=== PATIENT | male | born 1965 | race Caucasian/White ===

== ENCOUNTER 2018-06-01 16:55 | Emergency (ER) | payer OTHER ==
[2018-06-01 17:34] LABS: Hematocrit 52.1 % (39.6-49.0); MCH 30.1 pg (27.0-35.0); MCV 90.4 fL (80-100); MPV 9.2 fL (7.6-11.3); RBC Red Blood Cell Count 5.76 M/uL (4.33-5.43)
[2018-06-01] MEDS ORDERED: INSULIN -REGULAR HUMAN 50 UNIT/0.5 ML ML ONE (17:34)
[2018-06-01] MEDS ORDERED: HALOPERIDOL LACT 5 MG/ML INJ ONE (17:34)
[2018-06-01] MEDS ORDERED: DIPHENHYDRAMINE 50 MG/ML VIAL ONE (17:34)
[2018-06-01 17:35] LABS: Absolute Lymphocytes (CBC) 1.6 K/uL (0.7-4.9); Absolute Monocytes 0.5 K/uL (0.1-1.3); Absolute Neutrophil 6.4 K/uL (1.8-8.0); Basophils % 0.8 % (0-1.3); Eosinophils % 1.1 % (0-4.4); Lymphocytes % 18.8 % (15.3-44.8); Monocytes % 6.1 % (3.3-12.3)
[2018-06-01 17:56] LABS: Albumin 3.4 g/dL (3.4-5.0); Bilirubin Total 0.9 mg/dL (0.2-1.0); Potassium 4.4 mmol/L (3.5-5.1)
--- NOTE | 2018-06-01 18:53 | RAD REPORT ---
EXAM DESCRIPTION: CT - Abdomen Pelvis W Contrast - 06/01/2018 6:44 pm CLINICAL HISTORY: Abdominal pain, nausea and vomiting COMPARISON: April 2017 TECHNIQUE: Biphasic, helical CT imaging of the abdomen and pelvis was performed following 100 ml non -ionic IV contrast. Oral contrast was given. All CT scans are performed using dose optimization technique as appropriate and may include automated exposure control or mA/KV adjustment according to patient size. FINDINGS: Scarring and/ or atelectasis changes present at each lung base. No pericardial thickening or effusion. The liver, spleen, and pancreas show no suspicious findings. Gallstones can be occult. No acute gallb ladder finding seen. No biliary tree dilatation. Symmetric renal function is seen with no hydronephrosis or suspicious renal mass. No pyelonephritis o r acute renal parenchymal process. Patient has numerous nonobstructing caliceal calculi. These are si milar to comparison. No bladder calculus. Prostate gland and seminal vesicles show no acute findings. Fluid-filled stomach is present. No gastric wall thickening or mass. A few prominent but nondilated s mall bowel loops are present. Appendix is normal. No acute colon process seen. There is moderate stoo l volume distending the rectum and a mild to moderate stool volume elsewhere. No free air, free fluid or inflammatory stranding. No mass or bulky lymphadenopathy. Patient has a large 9 centimeter diameter ventral hernia. This has a 4 centimeter neck. Hernia contains only fat. No congestion or edema. The hernia is similar to comparison. No adrenal abnormality. Disc and bony degenerative changes are present. IMPRESSION: No obstruction, free air or surgically emergent finding. No significant bowel finding seen. Gastroenteritis is still possible. Large 9 centimeter umbilical ventral hernia containing only fat. This is similar to the comparison.
--- NOTE | 2018-06-01 18:57 | EDPHYS ---
Physician Documentation [facility] Name: Jordan Flaherty Age: 53 yrs Sex: Male : 1965 Arrival Date: 06/01/2018 Time: 16:58 Bed 5 Private MD: Alex Shipley E ED Physician Dereck Meza HPI: 06/01 17:18 This 53 yrs old Male presents to ER via Ambulatory with complaints of ps1 Vomiting, Weakness. 17:18 Patient with chronic abdominal pain, vomiting, and fatigue secondary to diabetic ps1 gastroparesis. Pt has been seen multiple times for the same and was a patient of Dr. Mascorro and is now seen by Dr. Maynard in [place]. Patient has been treated with PO phenergan and now states that the medication is not working. He took his BS today and it was >400 although patient is on SSI protocol. Pain is localized epigastric. Rated as moderate to severe. No remitting factors. . Historical: - Allergies: 17:05 No Known Allergies; hj - Home Meds: 17:05 amitriptyline 75 mg Oral tab 1 tab nightly [Active]; aspirin 325 mg Oral tab 1 tab once hj daily [Active]; atenolol 25 mg Oral tab 1 tab once daily [Active]; glyburide 2.5 mg Oral tab 2 tabs twice a day [Active]; lisinopril 2.5 mg Oral tab 1 tab once daily [Active]; Novolin 70/30 [place] Sub-Q 35 unit twice a day [Active]; pravastatin 20 mg Oral tab 1 tab once daily [Active]; Protonix Oral [Active]; topiramate 50 mg Oral tab as needed [Active]; Xanax 0.5 mg Oral tab 1 tab daily [Active]; - PMHx: 17:05 Diabetes - IDDM; Gastroparesis; Hyperlipidemia; Hypertension; TIA; hj - PSHx: 17:05 neck surgery; knee sx; hj - Immunization history:: Adult Immunizations up to date. - Social history:: Smoking status: Patient/guardian denies using tobacco, Patient/guardian denies using alcohol. - Ebola Screening: : Patient negative for fever greater than or equal to 101.5 degrees Fahrenheit, and additional compatible Ebola Virus Disease symptoms Patient denies exposure to infectious person Patient denies travel to an Ebola-affected area in the 21 days before illness onset. ROS: 17:18 Constitutional: Negative for fever, chills, and weight loss, Eyes: Negative for injury, ps1 pain, redness, and discharge, Cardiovascular: Negative for chest pain, palpitations, and edema, Respiratory: Negative for shortness of breath, cough, wheezing, and pleuritic chest pain, MS/Extremity: Negative for injury and deformity, Skin: Negative for injury, rash, and discoloration, Psych: Negative for depression, anxiety, suicide ideation, homicidal ideation, and hallucinations. 17:18 Abdomen/GI: Positive for abdominal pain, nausea and vomiting. 17:18 Neuro: Positive for numbness, tingling, lower extremities. Exam: 17:18 Constitutional: This is a well developed, well nourished patient who is awake, alert, ps1 and in no acute distress. Head/Face: Normocephalic, atraumatic. Eyes: Pupils equal round and reactive to light, extra-ocular motions intact. Lids and lashes normal. Conjunctiva and sclera are non-icteric and not injected. Cardiovascular: Regular rate and rhythm. No gallops, murmurs, or rubs. Normal PMI, no JVD. No pulse deficits. Respiratory: Lungs have equal breath sounds bilaterally, clear to auscultation and percussion. No rales, rhonchi or wheezes noted. No increased work of breathing, no retractions or nasal flaring. Abdomen/GI: Soft, non-tender, with normal bowel sounds. No distension or tympany. No guarding or rebound. No evidence of tenderness throughout. Skin: Warm, dry with normal turgor. Normal color with no rashes, no lesions, and no evidence of cellulitis. MS/ Extremity: Pulses equal, no cyanosis. Neurovascular intact. Full, normal range of motion. Vital Signs: 17:06 BP 156 / 100; Pulse 97; Resp 18; Temp 98.2(O); Pulse Ox 97% on R/A; Weight 99.79 kg; hj Height 6 ft. 0 in. (182.88 cm); Pain 10/10; 18:51 BP 139 / 88; Pulse 89; Resp 15; Pulse Ox 95% on R/A; la1 19:01 BP 139 / 88; Pulse 90; Resp 14; Pulse Ox 99% ; bp 17:06 Body Mass Index 29.84 (99.79 kg, 182.88 cm) hj MDM: 17:22 Patient medically screened. ps1 18:57 Data reviewed: vital signs, nurses notes, lab test result(s), radiologic studies, CT ps1 scan, and as a result, I will discharge patient. Counseling: I had a detailed discussion with the patient and/or guardian regarding: the historical points, exam findings, and any diagnostic results supporting the discharge/admit diagnosis, the need for outpatient follow up, a shellacker, to return to the emergency department if symptoms worsen or persist or if there are any questions or concerns that arise at home. Special discussion: Based on the patient's Hx, exam, and Dx evaluation, there is no indication for emergent surgery or inpatient Tx. It is understood by the patient/guardian that if the Sx's persist or worsen they need to return immediately for re-evaluation. 06/01 17:18 Order name: CBC with Diff; Complete Time: 17:43 ps1 06/01 17:18 Order name: CMP; Complete Time: 17:59 ps1 06/01 17:18 Order name: Magnesium; Complete Time: 17:59 ps1 06/01 17:18 Order name: Lipase; Complete Time: 17:59 ps1 06/01 18:28 Order name: CT Abd/Pelvis - W/Contrast ps1 06/01 17:18 Order name: EKG - Nurse/Tech; Complete Time: 17:33 ps1 06/01 18:08 Order name: EKG Electrocardiogram; Complete Time: 18:47 EDMS 06/01 18:13 Order name: EKG; Complete Time: 18:14 ss EC:07 Rate is 92 beats/min. Rhythm is regular. QRS [place] is Normal. [place] interval is normal. QRS ps1 interval is normal. QT interval is normal. Q waves are Old. T waves are Normal. No ST changes noted. Clinical impression: NSR w/ Non-specific ST/T Changes and No change from prior ECG. Interpreted by me. Administered Medications: 17:44 Drug: HALdol 5 mg Route: IVP; Site: right antecubital; la1 18:32 Follow up: Response: No adverse reaction la1 17:44 Drug: Benadryl 25 mg Route: IVP; Site: right antecubital; la1 18:33 Follow up: Response: No adverse reaction la1 17:44 Drug: Insulin Regular Human 10 units {Co-Signature: brennen (Lydia Ferrara RN).} Route: la1 Sub-Q; Site: right upper arm; Point of Care Testing: Blood Glucose: 17:32 Blood Glucose: 391 mg/dL; la1 19:01 Blood Glucose: 311 mg/dL; cb2 Ranges: Critical Glucose Levels:Adult <50 mg/dl or >400 mg/dl <40 mg/dl or >180 mg/dl Disposition: 06/01/18 18:56 Discharged to Home. Impression: Generalized abdominal pain, Hyperglycemia, Elevated Lipase, Diabetic Gastroparesis. - Condition is Stable. - Discharge Instructions: Abdominal Pain, Adult. - Prescriptions for Benadryl 25 mg Oral Capsule - take 1 capsule by ORAL route every 6 hours As needed; 30 tablet. Bentyl 10 mg Oral Capsule - take 1 capsule by ORAL route every 6 hours As needed; 40 capsule. Zofran 4 mg Oral Tablet - take 1 tablet by ORAL route every 12 hours As needed; 20 tablet. - Medication Reconciliation Form, Thank You Letter, Antibiotic Education, Prescription Opioid Use form. - Follow up: Alex Shipley MD; When: As needed; Reason: Re-evaluation by your physician. Follow up: Private Physician; When: As needed; Reason: Worsening of condition. - Problem is chronic. - Symptoms have improved. Signatures: Dispatcher [employer] EDMS Vishal Sarabia RN RN la1 William Thomas RN RN hj Peltier, Brian, RN RN bp Singer, Phillip, MD MD ps1 Lydia hutton Corrections: (The following items were deleted from the chart) 19:09 18:56 06/01/2018 18:56 Discharged to Home. Impression: Generalized abdominal pain; bp Hyperglycemia; Elevated Lipase; Diabetic Gastroparesis. Condition is Stable. Forms are Medication Reconciliation Form, Thank You Letter, Antibiotic Education, Prescription Opioid Use. Follow up: Alex Shipley; When: As needed; Reason: Re-evaluation by your physician. Follow up: Private Physician; When: As needed; Reason: Worsening of condition. Problem is chronic. Symptoms have improved. ps1
--- NOTE | 2018-06-01 18:57 | ER ---
Nurse's Notes [facility] Name: Jordan Flaherty Age: 53 yrs Sex: Male : 1965 Arrival Date: 06/01/2018 Time: 16:58 Bed 5 Private MD: Alex Shipley E Diagnosis: Generalized abdominal pain;Hyperglycemia;Elevated Lipase;Diabetic Gastroparesis Presentation: 06/01 17:02 Presenting complaint: Patient states: i keep throwing up for weeks now, i couldn't keep hj any food or drinks down; my stomach hurts, it feels like its pulling apart; denies diarrhea; denies fever and chills;. Transition of care: patient was not received from another setting of care. Onset of symptoms was June 01, 2018. Risk Assessment: Do you want to hurt yourself or someone else? Patient reports no desire to harm self or others. Initial Sepsis Screen: Does the patient meet any 2 criteria? No. Patient's initial sepsis screen is negative. Does the patient have a suspected source of infection? No. Patient's initial sepsis screen is negative. Care prior to arrival: None. 17:02 Method Of Arrival: Ambulatory 17:02 Acuity: MALACHI 3 hj Triage Assessment: 17:05 General: Appears in no apparent distress. uncomfortable, obese, Behavior is calm, hj cooperative, appropriate for age. Pain: Complains of pain in abdomen. GI: Reports lower abdominal pain, upper abdominal pain, cramping, nausea, vomiting. Historical: - Allergies: 17:05 No Known Allergies; hj - Home Meds: 17:05 amitriptyline 75 mg Oral tab 1 tab nightly [Active]; aspirin 325 mg Oral tab 1 tab once hj daily [Active]; atenolol 25 mg Oral tab 1 tab once daily [Active]; glyburide 2.5 mg Oral tab 2 tabs twice a day [Active]; lisinopril 2.5 mg Oral tab 1 tab once daily [Active]; Novolin 70/30 [place] Sub-Q 35 unit twice a day [Active]; pravastatin 20 mg Oral tab 1 tab once daily [Active]; Protonix Oral [Active]; topiramate 50 mg Oral tab as needed [Active]; Xanax 0.5 mg Oral tab 1 tab daily [Active]; - PMHx: 17:05 Diabetes - IDDM; Gastroparesis; Hyperlipidemia; Hypertension; TIA; hj - PSHx: 17:05 neck surgery; knee sx; hj - Immunization history:: Adult Immunizations up to date. - Social history:: Smoking status: Patient/guardian denies using tobacco, Patient/guardian denies using alcohol. - Ebola Screening: : Patient negative for fever greater than or equal to 101.5 degrees Fahrenheit, and additional compatible Ebola Virus Disease symptoms Patient denies exposure to infectious person Patient denies travel to an Ebola-affected area in the 21 days before illness onset. Screenin:05 Abuse screen: Denies threats or abuse. Denies injuries from another. Nutritional hj screening: No deficits noted. Tuberculosis screening: No symptoms or risk factors identified. Fall Risk None identified. Assessment: 17:06 GI: Abdomen is non-distended. hj 17:32 General: Appears uncomfortable, Behavior is cooperative. Pain: Complains of pain in la1 left upper quadrant and left lower quadrant Pain currently is 9 out of 10 on a pain scale. Neuro: Level of Consciousness is awake, alert, obeys commands, Oriented to person, place, time, situation. Cardiovascular: Capillary refill < 3 seconds Patient's skin is warm and dry. Respiratory: Airway is patent Respiratory effort is even, unlabored, Respiratory pattern is regular, symmetrical. GI: Abdomen is round non-distended, obese, Bowel sounds present X 4 quads. Abd is soft X 4 quads Abdomen is tender to palpation in left upper quadrant and left lower quadrant. : No signs and/or symptoms were reported regarding the genitourinary system. Musculoskeletal: Circulation, motion, and sensation intact. Range of motion: intact in all extremities. 18:23 Reassessment: Patient appears in no apparent distress at this time. No changes from la1 previously documented assessment. Patient and/or family updated on plan of care and expected duration. Pain level reassessed. 19:00 Reassessment: RECD REPORT FROM VISHAL MORENO. 53YO WM PRESENTED WITH N/V AND UNCONTROLLED DM. bp PT HAS H/O MED NON-COMPLIANCE FOR DM. D/C IN PROCESS. PT TO F/U WITH GI. 19:07 Reassessment: PT D/C HOME AMBULATORY WITH FAMILY, DX WITH GEN ABDOMINAL PAIN. bp Vital Signs: 17:06 BP 156 / 100; Pulse 97; Resp 18; Temp 98.2(O); Pulse Ox 97% on R/A; Weight 99.79 kg; hj Height 6 ft. 0 in. (182.88 cm); Pain 10/10; 18:51 BP 139 / 88; Pulse 89; Resp 15; Pulse Ox 95% on R/A; la1 19:01 BP 139 / 88; Pulse 90; Resp 14; Pulse Ox 99% ; bp 17:06 Body Mass Index 29.84 (99.79 kg, 182.88 cm) ED Course: 16:58 Patient arrived in ED. sb2 16:58 Alex Shipley MD is Private Physician. sb2 17:04 Triage completed. hj 17:04 Dereck Meza MD is Attending Physician. ps1 17:06 Arm band placed on right wrist. hj 17:06 Patient has correct armband on for positive identification. Placed in gown. Bed in low hj position. Call light in reach. Side rails up X 1. Adult w/ patient. 17:33 Inserted saline lock: 20 gauge in left antecubital area, using aseptic technique. Blood la1 collected. 17:38 EKG done, by pharmacy picking tech. reviewed by Dereck Meza MD. sm3 17:43 Vishal Sarabia, TIFFANIE is Primary Nurse. la1 18:[address] nj 18:43 CT completed. Patient tolerated procedure well. Patient moved back from CT. nj 18:45 CT Abd/Pelvis - W/Contrast In Process Unspecified. EDMS 18:56 Alex Shipley MD is Referral Physician. ps1 Administered Medications: 17:44 Drug: HALdol 5 mg Route: IVP; Site: right antecubital; la1 18:32 Follow up: Response: No adverse reaction la1 17:44 Drug: Benadryl 25 mg Route: IVP; Site: right antecubital; la1 18:33 Follow up: Response: No adverse reaction la1 17:44 Drug: Insulin Regular Human 10 units {Co-Signature: brennen (Lydia Ferrara RN).} Route: la1 Sub-Q; Site: right upper arm; Point of Care Testing: Blood Glucose: 17:32 Blood Glucose: 391 mg/dL; la1 19:01 Blood Glucose: 311 mg/dL; cb2 Ranges: Outcome: 18:56 Discharge ordered by . ps1 19:09 Patient left the ED. bp Signatures: Dispatcher [employer] EDMS Vishal Sarabia RN RN la1 William Thomas RN Jeff Epps Christian cb2 Peltier, Brian, RN RN bp Dereck Meza MD MD ps1 Savanna Sanchez sb2 Lexis Bautista sm3 Lydia hutton
[2018-06-01 20:30] VITALS: TEMP 98.2
[2018-06-01 20:31] VITALS: BP 139/88
[2018-06-01 20:32] VITALS: O2SAT 99
--- NOTE | 2018-06-02 07:51 | EKG ---
Test Date: 2018-06-01 Test Time: 17:33:15 Batch Analyst: CRISTAL MEASUREMENT RESULTS: Intervals: Rate: 86 VT: 176 QRSD: 104 QT: 380 QTc: 454 [place]: P: 43 VT: 176 QRS: 136 T: -14 INTERPRETIVE STATEMENTS: Normal sinus rhythm Right axis deviation Anterolateral infarct, age undetermined T wave abnormality, consider inferior ischemia Abnormal ECG Compared to ECG 10/16/2017 13:37:50 Right axis deviation now present T-wave abnormality now present Possible ischemia now present Myocardial infarct finding still present consider limb lead placement error Electronically Signed On 06-02-18 07:50:28 CDT by Willie Longoria
--- NOTE | 2018-06-02 10:18 | EKG ---
Test Date: 2018-06-01 Test Time: 18:07:06 Slip Sheeter: VEE MEASUREMENT RESULTS: Intervals: Rate: 92 AR: 174 QRSD: 100 QT: 384 QTc: 474 [place]: P: 69 AR: 174 QRS: 112 T: 41 INTERPRETIVE STATEMENTS: Normal sinus rhythm Indeterminate axis Anterior infarct, age undetermined Abnormal ECG Compared to ECG 06/01/2018 17:33:15 Indeterminate axis now present Right-axis deviation no longer present T-wave abnormality no longer present Possible ischemia no longer present Myocardial infarct finding still present previous ECG had limb lead placement error Electronically Signed On 06-02-18 10:17:52 CDT by Willie Longoria
== END 2018-06-01 19:09 | disposition home or self-care (01) ==
LOC: ER 16:55
DX: E11.65 Type 2 diabetes mellitus with hyperglycemia (principal); E11.43 Type 2 diabetes mellitus with diabetic autonomic (poly)neuropathy; K31.84 Gastroparesis; R74.8 Abnormal levels of other serum enzymes; I10 Essential (primary) hypertension; E78.5 Hyperlipidemia, unspecified; Z79.4 Long term (current) use of insulin; Z79.82 Long term (current) use of aspirin
CPT/HCPCS: 36415; 74177; 80053; 82962 ×2; 83690; 83735; 85025; 93005 ×2; 96372; 96374; 96375; 99284; J1630

== ENCOUNTER 2018-06-29 21:58 | Emergency (ER) | payer OTHER ==
[2018-06-29] MEDS ORDERED: METOCLOPRAMIDE 10 MG/2mL INJ ONE (22:40)
[2018-06-29] MEDS ORDERED: KETOROLAC 30 MG/ML INJ ONE (22:40)
[2018-06-29] MEDS ORDERED: PANTOPRAZOLE 40 MG INJ ONE (22:41)
[2018-06-29] MEDS ORDERED: NA CHLORIDE 0.9% 1,000 ML ONE (22:41)
[2018-06-29 22:44] LABS: Absolute Lymphocytes (CBC) 3.1 K/uL (0.7-4.9); Absolute Monocytes 0.6 K/uL (0.1-1.3); Absolute Neutrophil 4.9 K/uL (1.8-8.0); Basophils % 1.3 % (0-1.3); Eosinophils % 1.1 % (0-4.4); Hematocrit 49.8 % (39.6-49.0); Lymphocytes % 34.8 % (15.3-44.8); MCH 30.5 pg (27.0-35.0); MCV 87.7 fL (80-100); MPV 9.8 fL (7.6-11.3); Monocytes % 6.9 % (3.3-12.3); RBC Red Blood Cell Count 5.67 M/uL (4.33-5.43)
[2018-06-29 22:59] LABS: ALT/SGPT 26 U/L (12-78); AST/SGOT 17 U/L (15-37); Albumin 3.5 g/dL (3.4-5.0); Alkaline Phosphatase 91 U/L (45-117); Amylase Level 44 U/L (25-115); BUN Blood Urea Nitrogen 17 mg/dL (7-18); Bicarbonate 27 mmol/L (21-32); Bilirubin Direct 0.1 mg/dL (0-0.2); Bilirubin Total 0.6 mg/dL (0.2-1.0); Glucose Level 296 mg/dL (74-106); Lipase 167 U/L (73-393); Potassium 4.1 mmol/L (3.5-5.1); Sodium Level 134 mmol/L (136-145)
--- NOTE | 2018-06-29 23:46 | EDPHYS ---
Physician Documentation [facility] Name: Jodran Flaherty Age: 53 yrs Sex: Male : 1965 Arrival Date: 06/29/2018 Time: 22:03 Bed 16 Private MD: ED Physician Alex Haley HPI: 06/29 22:30 This 53 yrs old Male presents to ER via EMS with complaints of High Blood cp Sugar. 22:30 The patient or guardian reports hyperglycemia, that was potentially precipitated by cp forgetting medications. Onset: The symptoms/episode began/occurred today. Associated signs and symptoms: Pertinent positives: nausea, vomiting. Current symptoms: In the emergency department the patient's symptoms are unchanged from the initial presentation. 22:30 Patient presents to ED accompanied by law enforcement who report patient was arrested cp today and was unable to take medications. Historical: - Allergies: 22:08 No Known Allergies; tl2 - Home Meds: 22:08 amitriptyline 75 mg Oral tab 1 tab nightly [Active]; aspirin 325 mg Oral tab 1 tab once tl2 daily [Active]; atenolol 25 mg Oral tab 1 tab once daily [Active]; glyburide 2.5 mg Oral tab 2 tabs twice a day [Active]; lisinopril 2.5 mg Oral tab 1 tab once daily [Active]; Novolin 70/30 [place] Sub-Q 35 unit twice a day [Active]; pravastatin 20 mg Oral tab 1 tab once daily [Active]; Protonix Oral [Active]; topiramate 50 mg Oral tab as needed [Active]; Xanax 0.5 mg Oral tab 1 tab daily [Active]; - PMHx: 22:08 Diabetes - IDDM; Gastroparesis; Hyperlipidemia; Hypertension; TIA; tl2 - Immunization history:: Adult Immunizations up to date. - Social history:: Smoking status: Patient/guardian denies using tobacco. - Ebola Screening: : No symptoms or risks identified at this time. ROS: 22:45 Constitutional: Negative for body aches, chills, fever, poor PO intake. cp 22:45 ENT: Negative for drainage from ear(s), ear pain, sore throat, difficulty swallowing, difficulty handling secretions. 22:45 Cardiovascular: Negative for chest pain, edema, palpitations. 22:45 Respiratory: Negative for cough, shortness of breath, wheezing. 22:45 Abdomen/GI: Positive for nausea, vomiting, Negative for abdominal pain, diarrhea, constipation, anorexia, black/tarry stool, rectal bleeding. 22:45 Back: Positive for pain at rest, pain with movement. 22:45 Skin: Negative for cellulitis, rash. 22:45 Neuro: Negative for altered mental status, headache, weakness. 22:45 All other systems are negative. Exam: 22:52 Constitutional: The patient appears in no acute distress, alert, awake, cp non-diaphoretic, well developed, well nourished. 22:52 Head/Face: Normocephalic, atraumatic. cp 22:52 Eyes: Pupils equal round and reactive to light, extra-ocular motions intact. Lids and lashes normal. Conjunctiva and sclera are non-icteric and not injected. Cornea within normal limits. Periorbital areas with no swelling, redness, or edema. ENT: Nares patent. No nasal discharge, no septal abnormalities noted. Tympanic membranes are normal and external auditory canals are clear. Oropharynx with no redness, swelling, or masses, exudates, or evidence of obstruction, uvula midline. Mucous membranes moist. Chest/axilla: Normal chest wall appearance and motion. Nontender with no deformity. No lesions are appreciated. 22:52 Cardiovascular: Rate: normal, Rhythm: regular, Edema: is not appreciated, JVD: is not appreciated. 22:52 Respiratory: the patient does not display signs of respiratory distress, Respirations: normal, no use of accessory muscles, no retractions, no splinting, no tachypnea, labored breathing, is not present, Breath sounds: are clear throughout, no decreased breath sounds, no stridor, no wheezing. 22:52 Abdomen/GI: Inspection: abdomen appears normal, Bowel sounds: active, all quadrants, Palpation: abdomen is soft and non-tender, in all quadrants, rebound tenderness, is not appreciated, involuntary guarding, is not appreciated. 22:52 Back: pain, that is moderate, ROM is normal, CVA tenderness, is absent. 22:52 Skin: cellulitis, is not appreciated, no rash present. 22:52 Neuro: Orientation: to person, place \T\ time. Mentation: lucid, able to follow commands, Cerebellar function: is grossly normal, Motor: moves all fours, strength is normal, Sensation: no obvious gross deficits. Vital Signs: 22:08 BP 137 / 98; Pulse 99; Resp 20; Temp 98.1(O); Pulse Ox 97% on R/A; Weight 95.25 kg; tl2 Height 6 ft. 0 in. (182.88 cm); Pain 5/10; 23:42 BP 116 / 68; Pulse 88; Resp 18; Pulse Ox 97% on R/A; tl2 22:08 Body Mass Index 28.48 (95.25 kg, 182.88 cm) tl2 MDM: 22:23 Patient medically screened. cp 23:00 Differential diagnosis: diabetes insipidus, DKA, hyperglycemia. cp 23:44 Data reviewed: vital signs, nurses notes, lab test result(s), and as a result, I will cp discharge patient. 23:44 Counseling: I had a detailed discussion with the patient and/or guardian regarding: the cp historical points, exam findings, and any diagnostic results supporting the discharge/admit diagnosis, lab results, to return to the emergency department if symptoms worsen or persist or if there are any questions or concerns that arise at home. Response to treatment: the patient's symptoms have mildly improved after treatment, and as a result, I will discharge patient. ED course: VSS. Nausea and pain improved. Will discharge to home for continued monitoring. 06/29 22:23 Order name: Amylase, Serum; Complete Time: 23:27 cp 06/29 22:23 Order name: Basic Metabolic Panel; Complete Time: 23:27 cp 06/29 23:28 Interpretation: Normal except: NA 134; CL 97; GLUC 296; GFR 69. cp 06/29 22:23 Order name: CBC with Diff; Complete Time: 23:27 cp 06/29 22:23 Order name: Creatinine for Radiology; Complete Time: 23:27 cp 06/29 22:23 Order name: Hepatic Function; Complete Time: 23:27 cp 06/29 22:23 Order name: Lipase; Complete Time: 23:27 cp 06/29 22:23 Order name: IV Saline Lock; Complete Time: 22:26 cp 06/29 22:23 Order name: Ketone, Serum; Complete Time: 23:27 cp 06/29 22:23 Order name: Labs collected and sent; Complete Time: 22:26 cp Administered Medications: 22:44 Drug: NS 0.9% 1000 ml Route: IV; Rate: 1 bolus; Site: right antecubital; tl2 23:59 Follow up: IV Status: Completed infusion; IV Intake: 1000ml tl2 22:45 Drug: TORadol 30 mg Route: IVP; Site: right antecubital; tl2 23:38 Follow up: Response: No adverse reaction; Pain is decreased tl2 22:45 Drug: Reglan 20 mg Route: IVP; Site: right antecubital; tl2 23:38 Follow up: Response: No adverse reaction; Nausea is decreased tl2 22:45 Drug: ProTONIX 40 mg Route: IVP; Site: right antecubital; tl2 23:38 Follow up: Response: No adverse reaction tl2 23:53 Drug: NovoLIN R 7 units {Co-Signature: tl1 (Jacquelyn Apple RN).} Route: Sub-Q; Site: tl2 right upper arm; 06/30 00:00 Follow up: Response: No adverse reaction; Medication administered at discharge. tl2 Disposition: 00:30 Chart complete. cp Disposition: 06/29/18 23:45 Discharged to Home. Impression: Hyperglycemia, unspecified, Nausea, Dizziness and giddiness. - Condition is Stable. - Discharge Instructions: Dizziness, Hyperglycemia, Nausea, Adult, Blood Glucose Monitoring, Adult. - Medication Reconciliation Form, Thank You Letter, Antibiotic Education, Prescription Opioid Use form. - Follow up: Private Physician; When: 1 - 2 days; Reason: Recheck today's complaints. - Problem is an acute exacerbation. - Symptoms have improved. Addendum: 07/01/2018 08:18 Co-signature as Attending Physician, Alex Haley MD I agree with the assessment and w a plan of care. Signatures: Dispatcher [employer] EDMS Mikel Mena PA PA cp Knox, Taylor, RN RN tl2 Alex Haley MD MD oh Jacquelyn Apple RN tl1 Corrections: (The following items were deleted from the chart) 06/29 23:46 23:45 06/29/2018 23:45 Discharged to Home. Impression: Hyperglycemia, unspecified. cp Condition is Stable. Forms are Medication Reconciliation Form, Thank You Letter, Antibiotic Education, Prescription Opioid Use. Follow up: Private Physician; When: 1 - 2 days; Reason: Recheck today's complaints. Problem is an acute exacerbation. Symptoms have improved. cp 06/30 00:00 06/29 22:23 Urine Dipstick-Ancillary ordered. cp tl2 06/30 00:00 06/29 23:46 06/29/2018 23:45 Discharged to Home. Impression: Hyperglycemia, tl2 unspecified; Nausea; Dizziness and giddiness. Condition is Stable. Discharge Instructions: Hyperglycemia, Blood Glucose Monitoring, Adult. Forms are Medication Reconciliation Form, Thank You Letter, Antibiotic Education, Prescription Opioid Use. Follow up: Private Physician; When: 1 - 2 days; Reason: Recheck today's complaints. Problem is an acute exacerbation. Symptoms have improved. cp
--- NOTE | 2018-06-29 23:46 | ER ---
Nurse's Notes [facility] Name: Jordan Flaherty Age: 53 yrs Sex: Male : 1965 Arrival Date: 06/29/2018 Time: 22:03 Bed 16 Private MD: Diagnosis: Hyperglycemia, unspecified;Nausea;Dizziness and giddiness Presentation: 06/29 22:04 Presenting complaint: EMS states: Pt was taken into custody today and missed both of tl2 his insulin doses. Pt c/o being light headed and nauseous. BGL on EMS 276. Transition of care: patient was not received from another setting of care. Onset of symptoms was June 29, 2018 at 21:00. Risk Assessment: Do you want to hurt yourself or someone else? Patient reports no desire to harm self or others. Initial Sepsis Screen: Does the patient meet any 2 criteria? No. Patient's initial sepsis screen is negative. Does the patient have a suspected source of infection? No. Patient's initial sepsis screen is negative. Care prior to arrival: None. 22:04 Method Of Arrival: EMS: [facility] tl2 22:04 Acuity: MALACHI 3 tl2 Triage Assessment: 22:08 General: Appears in no apparent distress. uncomfortable, Behavior is cooperative, tl2 appropriate for age, anxious. Pain: Complains of pain in back. Neuro: Level of Consciousness is awake, alert, obeys commands, Oriented to person, place, time, situation. Neuro: Reports dizziness. Cardiovascular: Denies chest pain. Respiratory: Reports shortness of breath Airway is patent Respiratory effort is even, unlabored, Respiratory pattern is regular, symmetrical. GI: Reports nausea. : No signs and/or symptoms were reported regarding the genitourinary system. Derm: Skin is pink, warm \T\ dry. Historical: - Allergies: 22:08 No Known Allergies; tl2 - Home Meds: 22:08 amitriptyline 75 mg Oral tab 1 tab nightly [Active]; aspirin 325 mg Oral tab 1 tab once tl2 daily [Active]; atenolol 25 mg Oral tab 1 tab once daily [Active]; glyburide 2.5 mg Oral tab 2 tabs twice a day [Active]; lisinopril 2.5 mg Oral tab 1 tab once daily [Active]; Novolin 70/30 [place] Sub-Q 35 unit twice a day [Active]; pravastatin 20 mg Oral tab 1 tab once daily [Active]; Protonix Oral [Active]; topiramate 50 mg Oral tab as needed [Active]; Xanax 0.5 mg Oral tab 1 tab daily [Active]; - PMHx: 22:08 Diabetes - IDDM; Gastroparesis; Hyperlipidemia; Hypertension; TIA; tl2 - Immunization history:: Adult Immunizations up to date. - Social history:: Smoking status: Patient/guardian denies using tobacco. - Ebola Screening: : No symptoms or risks identified at this time. Screenin:09 Abuse screen: Denies threats or abuse. Nutritional screening: No deficits noted. tl2 Tuberculosis screening: No symptoms or risk factors identified. Fall Risk None identified. Assessment: 22:29 General: see triage assessment. tl2 23:42 Reassessment: Patient appears in no apparent distress at this time. Patient and/or tl2 family updated on plan of care and expected duration. Pain level reassessed. Patient is alert, oriented x 3, equal unlabored respirations, skin warm/dry/pink. Patient states feeling better. 23:55 Reassessment: Patient appears in no apparent distress at this time. Patient and/or tl2 family updated on plan of care and expected duration. Pain level reassessed. Patient is alert, oriented x 3, equal unlabored respirations, skin warm/dry/pink. Pt verbalized understanding of discharge instructions, need for follow up and use of insulin for the morning dose Patient states feeling better. Vital Signs: 22:08 BP 137 / 98; Pulse 99; Resp 20; Temp 98.1(O); Pulse Ox 97% on R/A; Weight 95.25 kg; tl2 Height 6 ft. 0 in. (182.88 cm); Pain 5/10; 23:42 BP 116 / 68; Pulse 88; Resp 18; Pulse Ox 97% on R/A; tl2 22:08 Body Mass Index 28.48 (95.25 kg, 182.88 cm) tl2 ED Course: 22:03 Patient arrived in ED. tl2 22:06 Triage completed. tl2 22:08 Arm band placed on right wrist. tl2 22:09 Patient has correct armband on for positive identification. Bed in low position. Call tl2 light in reach. Side rails up X2. Security at bedside. 22:21 Mikel Mena PA is PHCP. cp 22:21 Alex Haley MD is Attending Physician. cp 22:27 Margot Urbina, TIFFANIE is Primary Nurse. tl2 22:29 Inserted saline lock: 20 gauge in right antecubital area, using aseptic technique. tl2 Blood collected. 23:55 No provider procedures requiring assistance completed. IV discontinued, intact, tl2 bleeding controlled, No redness/swelling at site. Pressure dressing applied. Administered Medications: 22:44 Drug: NS 0.9% 1000 ml Route: IV; Rate: 1 bolus; Site: right antecubital; tl2 23:59 Follow up: IV Status: Completed infusion; IV Intake: 1000ml tl2 22:45 Drug: TORadol 30 mg Route: IVP; Site: right antecubital; tl2 23:38 Follow up: Response: No adverse reaction; Pain is decreased tl2 22:45 Drug: Reglan 20 mg Route: IVP; Site: right antecubital; tl2 23:38 Follow up: Response: No adverse reaction; Nausea is decreased tl2 22:45 Drug: ProTONIX 40 mg Route: IVP; Site: right antecubital; tl2 23:38 Follow up: Response: No adverse reaction tl2 23:53 Drug: NovoLIN R 7 units {Co-Signature: tl1 (Jacquelyn Apple RN).} Route: Sub-Q; Site: tl2 right upper arm; 06/30 00:00 Follow up: Response: No adverse reaction; Medication administered at discharge. tl2 Intake: 06/29 23:59 IV: 1000ml; Total: 1000ml. tl2 Outcome: 23:45 Discharge ordered by . cp 23:55 Discharged to Law Enforcement tl2 23:55 Condition: stable 23:55 Discharge instructions given to patient, Instructed on discharge instructions, follow up and referral plans. medication usage. 06/30 00:00 Patient left the ED. tl2 Signatures: Mikel Mena PA PA cp Knox, Taylor, RN RN tl2 Jacquelyn Apple RN tl1
[2018-06-29] MEDS ORDERED: INSULIN -REGULAR HUMAN 50 UNIT/0.5 ML ML ONE (23:55)
[2018-06-30 00:56] VITALS: TEMP 98.1; O2SAT 97
[2018-06-30 00:58] VITALS: BP 116/68
== END 2018-06-30 | disposition home or self-care (01) ==
LOC: ER 21:58
DX: E11.65 Type 2 diabetes mellitus with hyperglycemia (principal); E11.43 Type 2 diabetes mellitus with diabetic autonomic (poly)neuropathy; K31.84 Gastroparesis; Z79.4 Long term (current) use of insulin; E78.5 Hyperlipidemia, unspecified; I10 Essential (primary) hypertension; Z86.73 Personal history of transient ischemic attack (TIA), and cerebral infarction without residual deficits; Z79.82 Long term (current) use of aspirin; R42 Dizziness and giddiness; R11.0 Nausea; T38.3X6A Underdosing of insulin and oral hypoglycemic [antidiabetic] drugs, initial encounter; Z91.138 Patient's unintentional underdosing of medication regimen for other reason
CPT/HCPCS: 36415; 80048; 80076; 82010; 82150; 82962; 83690; 85025; 96361; 96372; 96374; 96375; 99284; C9113; J2765; J7030

== ENCOUNTER 2019-03-16 23:24 | Emergency (ER) | payer OTHER ==
[2019-03-17 01:23] LABS: Absolute Lymphocytes (CBC) 2.9 K/uL (0.7-4.9); Absolute Monocytes 0.6 K/uL (0.1-1.3); Absolute Neutrophil 4.5 K/uL (1.8-8.0); Basophils % 1.3 % (0-1.3); Eosinophils % 2.4 % (0-4.4); Hematocrit 44.4 % (39.6-49.0); Lymphocytes % 35.2 % (15.3-44.8); MPV 9.6 fL (7.6-11.3); Monocytes % 6.8 % (3.3-12.3)
[2019-03-17] MEDS ORDERED: NA CHLORIDE 0.9% 1,000 ML ONE ×2 (01:48→02:41)
[2019-03-17] MEDS ORDERED: ONDANSETRON 4 MG/2 ML VIAL ONE (01:52)
[2019-03-17] MEDS ORDERED: MORPHINE 4 MG/ML SYR ONE (01:52)
[2019-03-17 01:56] LABS: Albumin 2.9 g/dL (3.4-5.0); Bilirubin Direct 0.1 mg/dL (0-0.2); Bilirubin Total 0.5 mg/dL (0.2-1.0); Magnesium 1.8 mg/dL (1.8-2.4); Potassium 3.9 mmol/L (3.5-5.1); Protein, Total 7.1 g/dL (6.4-8.2)
[2019-03-17] MEDS ORDERED: INSULIN -REGULAR HUMAN 50 UNIT/0.5 ML ML ONE (02:28)
[2019-03-17] MEDS ORDERED: KETOROLAC 30 MG/ML INJ ONE (02:29)
--- NOTE | 2019-03-17 04:13 | ER ---
Nurse's Notes [facility] Name: Jordan Flaherty Age: 54 yrs Sex: Male : 1965 Arrival Date: 03/16/2019 Time: 23:26 Bed 18 Private MD: Alex Shipley E Diagnosis: Unspecified abdominal pain;Diabetes mellitus due to underlying condition with hyperglycemia Presentation: 03/16 23:38 Presenting complaint: Patient states: Pain and swelling to left side of abd, happening la1 for the last 2 weeks but much worse today. Transition of care: patient was not received from another setting of care. Onset of symptoms was March 16, 2019. Risk Assessment: Do you want to hurt yourself or someone else? Patient reports no desire to harm self or others. Initial Sepsis Screen: Does the patient meet any 2 criteria? No. Patient's initial sepsis screen is negative. Does the patient have a suspected source of infection? No. Patient's initial sepsis screen is negative. Care prior to arrival: None. 23:38 Method Of Arrival: Ambulatory la1 23:38 Acuity: MALACHI 3 la1 Historical: - Allergies: 23:39 No Known Allergies; la1 - PMHx: 23:39 Diabetes - IDDM; Gastroparesis; Hyperlipidemia; Hypertension; TIA; la1 - Immunization history:: Adult Immunizations. - Social history:: Smoking status: Patient/guardian denies using tobacco. - Ebola Screening: : No symptoms or risks identified at this time. Screenin/26 00:41 Abuse screen: Denies threats or abuse. Nutritional screening: No deficits noted. jd3 Tuberculosis screening: No symptoms or risk factors identified. Fall Risk Ambulatory Aid- None/Bed Rest/Nurse Assist (0 pts). Gait- Normal/Bed Rest/Wheelchair (0 pts) Mental Status- Oriented to own ability (0 pts). Total Enciso Fall Scale indicates No Risk (0-24 pts). Assessment: 00:39 General: Appears in no apparent distress. uncomfortable, Behavior is calm, cooperative, jd3 appropriate for age. Pain: Complains of pain in anterior aspect of left lateral abdomen Pain currently is 8 out of 10 on a pain scale. Quality of pain is described as pressure, sharp. Neuro: Level of Consciousness is awake, alert, obeys commands, Oriented to person, place, time, situation, Appropriate for age. Cardiovascular: Capillary refill < 3 seconds Patient's skin is warm and dry. Respiratory: Airway is patent Respiratory effort is even, unlabored, Respiratory pattern is regular, symmetrical. GI: Abdomen is round swelling noted to left flank of abdomen. Bowel sounds present X 4 quads. Abd is soft and non tender X 4 quads. Reports normal bowel habits, Patient currently denies constipation, diarrhea, nausea, vomiting. : No signs and/or symptoms were reported regarding the genitourinary system. EENT: No signs and/or symptoms were reported regarding the EENT system. Derm: Skin is intact, Skin is dry, Skin is normal, Skin temperature is warm. Musculoskeletal: Circulation, motion, and sensation intact. Range of motion: intact in all extremities. 01:30 Reassessment: Patient appears in no apparent distress at this time. Patient and/or jd3 family updated on plan of care and expected duration. Pain level reassessed. Patient is alert, oriented x 3, equal unlabored respirations, skin warm/dry/pink. 02:03 Reassessment: Patient appears in no apparent distress at this time. Patient and/or jd3 family updated on plan of care and expected duration. Pain level reassessed. Patient is alert, oriented x 3, equal unlabored respirations, skin warm/dry/pink. 03:05 Reassessment: Patient appears in no apparent distress at this time. Patient and/or jd3 family updated on plan of care and expected duration. Pain level reassessed. Patient is alert, oriented x 3, equal unlabored respirations, skin warm/dry/pink. 04:12 Reassessment: Patient appears in no apparent distress at this time. Patient and/or jd3 family updated on plan of care and expected duration. Pain level reassessed. Patient is alert, oriented x 3, equal unlabored respirations, skin warm/dry/pink. Vital Signs: 03/16 23:39 BP 150 / 104; Pulse 102; Resp 16; Temp 98.4; Pulse Ox 100% on R/A; Weight 99.79 kg; la1 Height 6 ft. 0 in. (182.88 cm); Pain 7/10; 03/17 00:51 BP 142 / 91; Pulse 98; Resp 16; Temp 98.2(O); Pulse Ox 98% ; lt1 02:04 BP 122 / 83; Pulse 86; Resp 19 S; Pulse Ox 98% on R/A; jd3 03:05 BP 118 / 75; Pulse 81; Resp 18 S; Pulse Ox 99% on R/A; jd3 04:13 BP 112 / 71; Pulse 88; Resp 17 S; Pulse Ox 99% on R/A; jd3 03/16 23:39 Body Mass Index 29.84 (99.79 kg, 182.88 cm) la1 ED Course: 03/16 23:26 Patient arrived in ED. es 23:26 Alex Shipley MD is Private Physician. es 23:38 Triage completed. la1 23:39 Arm band placed on left wrist. la1 03/17 00:38 Ti Farias RN is Primary Nurse. jd3 00:41 Patient has correct armband on for positive identification. Placed in gown. Bed in low jd3 position. Call light in reach. Side rails up X 1. Adult w/ patient. 00:59 Mikel Mena PA is PHCP. cp 00:59 Bernardino Rose MD is Attending Physician. cp 01:18 Inserted saline lock: 22 gauge in right antecubital area, using aseptic technique. tl2 Blood collected. 01:48 Radiology exam delayed due to lab results not completed at this time. (BUN/Creatinine). az 01:57 Notified Nurse Practitioner and/or Physician Pediatric Sports Medicine Specialist of a critical lab result(s), fc glucose 517. 03:33 CT Abd/Pelvis - W/Contrast: no oral contrast In Process Unspecified. EDMS 04:11 Alex Shipley MD is Referral Physician. cp 04:27 No provider procedures requiring assistance completed. IV discontinued, intact, jd3 bleeding controlled, No redness/swelling at site. Pressure dressing applied. Administered Medications: 01:35 Drug: NS 0.9% 1000 ml Route: IV; Rate: 1 bolus; Site: right antecubital; jd3 04:17 Follow up: Response: No adverse reaction; IV Status: Completed infusion; IV Intake: jd3 1000ml 01:41 Drug: morphine 4 mg Route: IVP; Site: right antecubital; jd3 02:12 Follow up: Response: Pain is unchanged, physician notified jd3 01:41 Drug: Zofran 4 mg Route: IVP; Site: right antecubital; jd3 02:12 Follow up: Response: No adverse reaction jd3 02:19 Drug: Insulin Regular Human 10 units {Co-Signature: tl2 (Margot Urbina RN).} Route: IVP; jd3 Site: right antecubital; 03:15 Follow up: Response: No adverse reaction jd3 02:20 Drug: TORadol 30 mg Route: IVP; Site: right antecubital; jd3 03:20 Follow up: Response: No adverse reaction jd3 02:31 Drug: NS 0.9% 1000 ml Route: IV; Rate: 1 bolus; Site: right antecubital; jd3 04:18 Follow up: Response: No adverse reaction; IV Status: Completed infusion; IV Intake: jd3 1000ml 04:03 Drug: Bentyl 20 mg Route: PO; jd3 04:18 Follow up: Response: No adverse reaction jd3 04:04 Drug: Reglan 10 mg Route: IVP; Site: right antecubital; jd3 04:18 Follow up: Response: No adverse reaction jd3 Point of Care Testing: Blood Glucose: 04:13 Blood Glucose: 302 mg/dL; jd3 Ranges: Intake: 04:17 IV: 1000ml; Total: 1000ml. jd3 04:18 IV: 1000ml; Total: 2000ml. jd3 Outcome: 04:12 Discharge ordered by MD. cp 04:27 Discharged to home ambulatory, with family. jd3 04:27 Condition: stable 04:27 Discharge instructions given to patient, family, Instructed on discharge instructions, follow up and referral plans. medication usage, Demonstrated understanding of instructions, follow-up care, medications, Prescriptions given X 3. 04:29 Patient left the ED. jd3 Signatures: Dispatcher [employer] Phuong Bynum Felicia RN Vishal Shay RN RN la1 Mikel Mena PA PA cp Knox, Taylor, RN RN tl2 Ti Farias RN RN jd3 Rupa Hugo Leah lt1 Margot Urbina RN tl2 Corrections: (The following items were deleted from the chart) 02:05 02:04 BP 115 / 95; Pulse 67bpm; Resp 19bpm; Spontaneous; Pulse Ox 100% RA; jd3 jd3
--- NOTE | 2019-03-17 04:13 | EDPHYS ---
Physician Documentation [facility] [place] Name: Jordan Flaherty Age: 54 yrs Sex: Male : 1965 Arrival Date: 03/16/2019 Time: 23:26 Bed 18 Private MD: Alex Shipley E ED Physician Bernardino Rose HPI: 03/17 01:05 This 54 yrs old Male presents to ER via Ambulatory with complaints of cp Abdominal Pain. 01:05 The patient presents with abdominal pain left flank. Onset: The symptoms/episode cp began/occurred 2 week(s) ago, and became worse today. The symptoms do not radiate. Associated signs and symptoms: Pertinent negatives: nausea and vomiting, blood in stools, chest pain, constipation, diarrhea, dysuria, fever, palpitations, testicular pain. Historical: - Allergies: 03/16 23:39 No Known Allergies; la1 - PMHx: 23:39 Diabetes - IDDM; Gastroparesis; Hyperlipidemia; Hypertension; TIA; la1 - Immunization history:: Adult Immunizations. - Social history:: Smoking status: Patient/guardian denies using tobacco. - Ebola Screening: : No symptoms or risks identified at this time. ROS: 03/17 01:10 Constitutional: Negative for body aches, chills, fever, poor PO intake. cp 01:10 Eyes: Negative for injury, pain, redness, and discharge. cp 01:10 ENT: Negative for drainage from ear(s), ear pain, sore throat, difficulty swallowing, difficulty handling secretions. 01:10 Cardiovascular: Negative for chest pain, edema, palpitations. 01:10 Respiratory: Negative for cough, shortness of breath, wheezing. 01:10 Abdomen/GI: Negative for abdominal pain, nausea, vomiting, and diarrhea, black/tarry stool, rectal bleeding. 01:10 Back: Negative for pain at rest, pain with movement, radiated pain. 01:10 Skin: Negative for rash. 01:10 Neuro: Negative for headache, weakness. 01:10 All other systems are negative. Exam: 01:15 Constitutional: The patient appears in no acute distress, alert, awake, cp non-diaphoretic, non-toxic, well developed, well nourished. 01:15 Head/Face: Normocephalic, atraumatic. cp 01:15 Eyes: Periorbital structures: appear normal, Conjunctiva: normal, no exudate, no injection, Sclera: no appreciated abnormality, Lids and lashes: appear normal, bilaterally. 01:15 ENT: External ear(s): are unremarkable, Nose: is normal, Mouth: Lips: moist, Oral mucosa: moist, Posterior pharynx: is normal, airway is patent, no erythema, no exudate. 01:15 Chest/axilla: Inspection: normal, Palpation: is normal, no crepitus, no tenderness. 01:15 Cardiovascular: Rate: normal, Rhythm: regular. 01:15 Respiratory: the patient does not display signs of respiratory distress, Respirations: normal, no use of accessory muscles, no retractions, no splinting, no tachypnea, labored breathing, is not present, Breath sounds: are clear throughout, no decreased breath sounds, no stridor, no wheezing. 01:15 Back: CVA tenderness, is absent. 01:15 Skin: no rash present. 01:15 Abdomen/GI: Bowel sounds: active, all quadrants, Palpation: soft, in all quadrants, cp moderate abdominal tenderness, in the anterior aspect of left lateral abdomen, rebound tenderness, is not appreciated, involuntary guarding, is not appreciated, Hernia: noted in the umbilical area, incarceration, is not appreciated, tenderness, is not appreciated. Vital Signs: 03/16 23:39 BP 150 / 104; Pulse 102; Resp 16; Temp 98.4; Pulse Ox 100% on R/A; Weight 99.79 kg; la1 Height 6 ft. 0 in. (182.88 cm); Pain 7/10; 03/17 00:51 BP 142 / 91; Pulse 98; Resp 16; Temp 98.2(O); Pulse Ox 98% ; lt1 02:04 BP 122 / 83; Pulse 86; Resp 19 S; Pulse Ox 98% on R/A; jd3 03:05 BP 118 / 75; Pulse 81; Resp 18 S; Pulse Ox 99% on R/A; jd3 04:13 BP 112 / 71; Pulse 88; Resp 17 S; Pulse Ox 99% on R/A; jd3 03/16 23:39 Body Mass Index 29.84 (99.79 kg, 182.88 cm) la1 MDM: 01:03 Patient medically screened. cp 01:30 Differential diagnosis: bowel obstruction, diverticulitis, non-specific abd pain, cp pancreatitis, Ureterolithiasis, urinary tract infection. 04:11 Data reviewed: vital signs, nurses notes, lab test result(s), radiologic studies, CT cp scan. 04:11 Counseling: I had a detailed discussion with the patient and/or guardian regarding: the cp historical points, exam findings, and any diagnostic results supporting the discharge/admit diagnosis, lab results, radiology results, to return to the emergency department if symptoms worsen or persist or if there are any questions or concerns that arise at home. Response to treatment: the patient's symptoms have markedly improved after treatment, and as a result, I will discharge patient. Special discussion: Based on the patient's Hx, exam, and Dx evaluation, there is no indication for emergent surgery or inpatient Tx. It is understood by the patient/guardian that if the Sx's persist or worsen they need to return immediately for re-evaluation. 03/17 01:03 Order name: Basic Metabolic Panel; Complete Time: 02:23 cp 03/17 02:23 Interpretation: Normal except: NA 132; GLUC 517; BUN 19; GFR 72. cp 03/17 01:03 Order name: CBC with Diff; Complete Time: 02:23 cp 03/17 01:03 Order name: Creatinine for Radiology; Complete Time: 02:23 cp 03/17 01:03 Order name: Hepatic Function; Complete Time: 02:23 cp 03/17 01:03 Order name: Lipase; Complete Time: 02:23 cp 03/17 01:03 Order name: Magnesium; Complete Time: 02:23 cp 03/17 01:22 Order name: CT Abd/Pelvis - W/Contrast: no oral contrast cp 03/17 01:03 Order name: IV Saline Lock; Complete Time: 01:18 cp 03/17 01:03 Order name: Labs collected and sent; Complete Time: 01:18 cp 03/17 03:50 Order name: Accucheck Blood Glucose; Complete Time: 04:14 cp Administered Medications: 01:35 Drug: NS 0.9% 1000 ml Route: IV; Rate: 1 bolus; Site: right antecubital; jd3 04:17 Follow up: Response: No adverse reaction; IV Status: Completed infusion; IV Intake: jd3 1000ml 01:41 Drug: morphine 4 mg Route: IVP; Site: right antecubital; jd3 02:12 Follow up: Response: Pain is unchanged, physician notified jd3 01:41 Drug: Zofran 4 mg Route: IVP; Site: right antecubital; jd3 02:12 Follow up: Response: No adverse reaction jd3 02:19 Drug: Insulin Regular Human 10 units {Co-Signature: tl2 (Margot Urbina RN).} Route: IVP; jd3 Site: right antecubital; 03:15 Follow up: Response: No adverse reaction jd3 02:20 Drug: TORadol 30 mg Route: IVP; Site: right antecubital; jd3 03:20 Follow up: Response: No adverse reaction jd3 02:31 Drug: NS 0.9% 1000 ml Route: IV; Rate: 1 bolus; Site: right antecubital; jd3 04:18 Follow up: Response: No adverse reaction; IV Status: Completed infusion; IV Intake: jd3 1000ml 04:03 Drug: Bentyl 20 mg Route: PO; jd3 04:18 Follow up: Response: No adverse reaction jd3 04:04 Drug: Reglan 10 mg Route: IVP; Site: right antecubital; jd3 04:18 Follow up: Response: No adverse reaction jd3 Point of Care Testing: Blood Glucose: 04:13 Blood Glucose: 302 mg/dL; jd3 Ranges: Critical Glucose Levels:Adult <50 mg/dl or >400 mg/dl <40 mg/dl or >180 mg/dl Disposition: 06:30 Co-signature as Attending Physician, Bernardino Rose MD. pkl Disposition: 03/17/19 04:12 Discharged to Home. Impression: Unspecified abdominal pain, Diabetes mellitus due to underlying condition with hyperglycemia. - Condition is Stable. - Discharge Instructions: Abdominal Pain, Adult, Constipation, Adult, Blood Glucose Monitoring, Adult, Diabetes Mellitus and Food. - Prescriptions for Bentyl 20 mg Oral Tablet - take 2 tablet by ORAL route every 6 hours As needed; 40 tablet. Zofran 4 mg Oral Tablet - take 1 tablet by ORAL route every 12 hours As needed; 20 tablet. Miralax 17 gram/dose Oral - take 1 packet by ORAL route once daily As needed dilute powder in 8 ounces of water or juice; 20 packet. - Medication Reconciliation Form, Thank You Letter, Antibiotic Education, Prescription Opioid Use form. - Follow up: Alex Shipley MD; When: 2 - 3 days; Reason: Recheck today's complaints. - Problem is new. - Symptoms have improved. Signatures: Dispatcher [employer] EDMS Bernardino Rose MD MD pkl Attema, Lee RN RN la1 Mikel Mena PA PA cp Ti Farias RN RN jd3 Margot Urbina RN tl2 Corrections: (The following items were deleted from the chart) 04:01 01:15 Abdomen/GI: Inspection: Bowel sounds: active, all quadrants, Palpation: soft, in cp all quadrants, moderate abdominal tenderness, in the anterior aspect of left lateral abdomen, rebound tenderness, is not appreciated, voluntary guarding, is not appreciated, involuntary guarding, is not appreciated, Hernia: noted in the paraumbilical area, incarceration, is not appreciated, tenderness, is not appreciated, cp 04:13 04:12 03/17/2019 04:12 Discharged to Home. Impression: Unspecified abdominal pain. cp Condition is Stable. Forms are Medication Reconciliation Form, Thank You Letter, Antibiotic Education, Prescription Opioid Use. Follow up: Alex Shipley; When: 2 - 3 days; Reason: Recheck today's complaints. Problem is new. Symptoms have improved. cp 04:29 04:13 03/17/2019 04:12 Discharged to Home. Impression: Unspecified abdominal pain; jd3 Diabetes mellitus due to underlying condition with hyperglycemia. Condition is Stable. Discharge Instructions: Abdominal Pain, Adult, Constipation, Adult. Prescriptions for Bentyl 20 mg Oral Tablet - take 2 tablet by ORAL route every 6 hours As needed; 40 tablet, Zofran 4 mg Oral Tablet - take 1 tablet by ORAL route every 12 hours As needed; 20 tablet, Miralax 17 gram/dose Oral - take 1 packet by ORAL route once daily As needed dilute powder in 8 ounces of water or juice; 20 packet. and Forms are Medication Reconciliation Form, Thank You Letter, Antibiotic Education, Prescription Opioid Use. Follow up: Alex Shipley; When: 2 - 3 days; Reason: Recheck today's complaints. Problem is new. Symptoms have improved. cp
[2019-03-17] MEDS ORDERED: METOCLOPRAMIDE 10 MG/2mL INJ ONE (04:14)
[2019-03-17] MEDS ORDERED: DICYCLOMINE HCL 10 MG CAP ONE ×2 (04:14→04:17)
[2019-03-17 04:37] VITALS: TEMP 98.2
[2019-03-17 04:39] VITALS: O2SAT 99
[2019-03-17 04:40] VITALS: BP 112/71
--- NOTE | 2019-03-19 11:06 | RAD REPORT ---
EXAM DESCRIPTION: CT - Abdomen Pelvis W Contrast - 03/17/2019 3:32 am CLINICAL HISTORY: The patient is 54 years old and is Male; ABD PAIN TECHNIQUE: Axial computed tomography images of the abdomen and pelvis with intravenous contrast. S agittal and coronal reformatted images were created and reviewed. This CT exam was performed using one or more of the following dose reduction techniques: automated exposure control, adjustment of t he mA and/or kV according to patient size, and/or use of iterative reconstruction technique. COMPARISON: No relevant prior studies available. FINDINGS: LUNG BASES: Areas of linear atelectasis within the right middle lobe and right lower lob e are present. ABDOMEN: LIVER: The liver is enlarged and mildly fatty. GALLBLADDER AND BILE DUCTS: Distention of the gallbladder is noted. No calcified gallstones are seen. PANCREAS: The pancreas is atrophic. SPLEEN: Unremarkable. ADRENALS: Unremarkable. No mass. KIDNEYS AND URETERS: Punctate bilateral intrarenal calcifications are present. The kidneys enhan ce symmetrically. No obstructing renal or ureteral calculus is seen. STOMACH AND BOWEL: The stomach is distended with food contents. The small bowel is relatively no rmal in caliber. A moderate amount of stool is present throughout the colon. Scattered colonic divert icula are present without surrounding inflammation. There is no bowel obstruction. PELVIS: APPENDIX: The appendix is normal in caliber without surrounding inflammation. BLADDER: The bladder is well distended. REPRODUCTIVE: The prostate is enlarged. ABDOMEN and PELVIS: INTRAPERITONEAL SPACE: Unremarkable. No free air. No significant fluid collection. BONES/JOINTS: Mild multilevel degenerative change of the spine is present. SOFT TISSUES: A moderate-sized fat-containing umbilical hernia is present. VASCULATURE: Extensive atherosclerosis of the vasculature is present. No abdominal aortic aneu rysm. LYMPH NODES: Unremarkable. No enlarged lymph nodes. IMPRESSION: 1. Bilateral nephrolithiasis without obstruction. 2. Normal appendix. 3. Diverticulosis. No bowel obstruction. Electronically signed by: Fay Rider MD 03/17/2019 3:44 AM CDT Due to temporary technical issues with the PACS/Fluency reporting system, reports are being signed by the in house radiologist as a courtesy to ensure prompt reporting. The interpreting radiologist is f ully responsible for the content of the report.
== END 2019-03-17 04:29 | disposition home or self-care (01) ==
LOC: ER 23:24
DX: E11.65 Type 2 diabetes mellitus with hyperglycemia (principal); I10 Essential (primary) hypertension
CPT/HCPCS: 96361; 85025; 80048; 36415; 83735; 82962; 80076; 83690; 74177; 96375; 96374; 99284; Q9967; J2765; J7030 ×2; J2405

== ENCOUNTER 2019-09-27 18:52 | Inpatient (IN) | payer OTHER ==
[2019-09-27] MEDS ORDERED: NA CHLORIDE 0.9% 1,000 ML ONE (19:25)
[2019-09-27] MEDS ORDERED: MORPHINE 4 MG/ML SYR ONE ×2 (19:35→19:52)
[2019-09-27] MEDS ORDERED: ONDANSETRON 4 MG/2 ML VIAL ONE ×2 (19:36→19:52)
[2019-09-27] MEDS ORDERED: VANCOMYCIN 1 GM/VIAL ONE (19:38)
[2019-09-27] MEDS ORDERED: NA CHLORIDE 0.9% 500 ML ONE (19:38)
[2019-09-27] MEDS ORDERED: PIPER/TAZO/NS 3.375gm 3.375 GM/100 ML BAG ONE (19:39)
[2019-09-27 19:49] LABS: Absolute Lymphocytes (CBC) 1.8 K/uL (0.7-4.9); Basophils % 0.6 % (0-1.3); Hematocrit 44.6 % (39.6-49.0); Lymphocytes % 10.7 % (15.3-44.8); MPV 9.6 fL (7.6-11.3); RBC Red Blood Cell Count 5.05 M/uL (4.33-5.43)
[2019-09-27 19:53] LABS: Protime INR 0.96
[2019-09-27] MEDS ORDERED: NA CHLORIDE 0.9% 2,000 ML ONE (20:02)
--- NOTE | 2019-09-27 20:08 | ER ---
Nurse's Notes [facility] Name: Jordan Flaherty Age: 54 yrs Sex: Male : 1965 Arrival Date: 09/27/2019 Time: 18:56 Bed 19 Private MD: Diagnosis: Cutaneous abscess of other sites-right groin;Type 1 diabetes mellitus;Vomiting;Fever, unspecified Presentation: 09/27 19:07 Acuity: MALACHI 3 dm5 19:12 Presenting complaint: Patient states: "i think I have a Staph infection in groin. dm5 Started 2 days". Transition of care: patient was not received from another setting of care. Onset of symptoms was September 25, 2019. Risk Assessment: Do you want to hurt yourself or someone else? Patient reports no desire to harm self or others. Initial Sepsis Screen: Does the patient meet any 2 criteria? RR > 20 per min. HR > 90 bpm. Yes Does the patient have a suspected source of infection? Yes: Skin breakdown/wound If YES to both, name of provider notified: Mikel Padilla MD Care prior to arrival: None. 19:12 Method Of Arrival: Ambulatory dm5 Historical: - Allergies: 19:29 No Known Allergies; jd3 - Home Meds: 19:29 amitriptyline 75 mg Oral tab 1 tab nightly [Active]; aspirin 325 mg Oral tab 1 tab once jd3 daily [Active]; atenolol 25 mg Oral tab 1 tab once daily [Active]; glyburide 2.5 mg Oral tab 2 tabs twice a day [Active]; lisinopril 2.5 mg Oral tab 1 tab once daily [Active]; Novolin 70/30 [place] Sub-Q 35 unit twice a day [Active]; pravastatin 20 mg Oral tab 1 tab once daily [Active]; Protonix Oral [Active]; topiramate 50 mg Oral tab as needed [Active]; Xanax 0.5 mg Oral tab 1 tab daily [Active]; duloxetine oral oral [Active]; - PMHx: 19:29 Diabetes - IDDM; Hyperlipidemia; Hypertension; Gastroparesis; TIA; jd3 - PSHx: 19:29 staff removed from back of neck, somach, and over the eye; jd3 - Immunization history:: Adult Immunizations up to date. - Social history:: Smoking status: unknown. - Family history:: not pertinent. - Ebola Screening: : Patient negative for fever greater than or equal to 101.5 degrees Fahrenheit, and additional compatible Ebola Virus Disease symptoms Patient denies exposure to infectious person. Screenin:45 Abuse screen: Denies threats or abuse. Denies injuries from another. Nutritional wh screening: No deficits noted. Tuberculosis screening: No symptoms or risk factors identified. Fall Risk None identified. Assessment: 19:45 General: Appears in no apparent distress. uncomfortable, Behavior is calm, cooperative, wh appropriate for age. Pain: Complains of pain in RIght groin Pain does not radiate. Pain currently is 9 out of 10 on a pain scale. Quality of pain is described as aching. Neuro: Level of Consciousness is awake, alert, obeys commands, Oriented to person, place, time, situation, Appropriate for age. Cardiovascular: Heart tones S1 S2. Respiratory: Airway is patent Respiratory effort is even, unlabored, Respiratory pattern is regular, symmetrical, Breath sounds are clear bilaterally. GI: Abdomen is flat, non-distended. : No signs and/or symptoms were reported regarding the genitourinary system. EENT: No signs and/or symptoms were reported regarding the EENT system. Derm: Redness and swelling around Right groin. Musculoskeletal: Circulation, motion, and sensation intact. 20:30 Reassessment: Patient appears in no apparent distress at this time. No changes from previously documented assessment. Patient and/or family updated on plan of care and expected duration. Pain level reassessed. Patient is alert, oriented x 3, equal unlabored respirations, skin warm/dry/pink. 21:26 Reassessment: Patient appears in no apparent distress at this time. No changes from previously documented assessment. Patient and/or family updated on plan of care and expected duration. Pain level reassessed. Patient is alert, oriented x 3, equal unlabored respirations, skin warm/dry/pink. Patient states feeling better. Vital Signs: 19:20 BP 147 / 85; Pulse 102; Resp 24; Temp 98.9; Pulse Ox 98% on R/A; Weight 99.79 kg (R); dm5 Height 6 ft. 0 in. (182.88 cm); Pain 9/10; 20:48 BP 105 / 76 RA; Pulse 88; Resp 20; Temp 98.8(O); Pulse Ox 95% ; Pain 7/10; tt1 21:24 BP 109 / 68; Pulse 87; Resp 20; Temp 99.6(O); Pulse Ox 96% ; Pain 7/10; tt1 19:20 Body Mass Index 29.84 (99.79 kg, 182.88 cm) 5 ED Course: 18:56 Patient arrived in ED. mr 19:07 Triage completed. dm5 19:20 Phil Gaspar is Primary Nurse. 19:24 Mikel Padilla MD is Attending Physician. amanda 19:29 Arm band placed on. jd3 19:45 Patient has correct armband on for positive identification. Bed in low position. Call light in reach. Side rails up X 1. bus monitor on. Pulse ox on. NIBP on. 19:45 Inserted saline lock: 20 gauge in right antecubital area, using aseptic technique. Blood collected. 20:02 Chest Single View XRAY In Process Unspecified. EDMS 20:05 Georges Luciano MD is Hospitalizing Provider. amanda 22:16 No provider procedures requiring assistance completed. Patient admitted, IV remains in place. Administered Medications: 19:45 Drug: NS 0.9% (30 ml/kg) 30 ml/kg Route: IV; Rate: bolus; Site: right antecubital; 22:28 Follow up: Response: No adverse reaction; IV Status: Completed infusion; IV Intake: 2900ml 19:50 Drug: Zosyn 3.375 grams Route: IVPB; Infused Over: 60 mins; Site: right antecubital; 20:44 Follow up: Response: No adverse reaction; IV Status: Completed infusion sr6 19:52 Drug: morphine 4 mg {Note: RASS 0.} Route: IVP; Site: right antecubital; 20:45 Follow up: Response: No adverse reaction; Pain is decreased; RASS: Alert and Calm (0) sr6 19:54 Drug: Zofran 4 mg Route: IVP; Site: right antecubital; 20:45 Follow up: Response: No adverse reaction; Nausea is decreased sr6 20:30 Drug: Insulin Regular Human 10 units {Co-Signature: (Phil Gaspar).} Route: IVP; sr6 Site: right antecubital; 21:10 Follow up: Response: No adverse reaction sr6 20:30 Drug: Insulin Regular Human 10 units {Co-Signature: [facility]} Route: Sub-Q; sr6 Site: right upper arm; 21:09 Follow up: Response: No adverse reaction sr6 20:30 Drug: morphine 4 mg Route: IVP; Site: right antecubital; sr6 21:09 Follow up: Response: No adverse reaction; Pain is decreased; RASS: Alert and Calm (0) sr6 20:59 Drug: vancoMYCIN 1 grams Route: IVPB; Infused Over: 2 hrs; Site: right antecubital; sr6 22:10 Follow up: Response: No adverse reaction; IV Status: Infusion continued upon admission 21:05 Drug: Zofran 4 mg Route: IVP; Site: right antecubital; sr6 21:10 Follow up: Response: No adverse reaction; Nausea is decreased sr6 Intake: 22:28 IV: 2900ml; Total: 2900ml. Outcome: 20:06 Decision to Hospitalize by Provider. amanda 22:23 Admitted to Med/surg 22:23 Admitted to Med/surg accompanied by tech, family with patient, via stretcher, with chart, Report called to Wendy Garcia RN 22:23 Condition: stable 22:23 Instructed on the need for admit. 22:33 Patient left the ED. Signatures: Dispatcher [employer] Marizol Juarez, TIFFANIE RN dm5 Mikel Padilla MD MD cha Rivera, Leanna mr Brooke, Michelle tt1 [facility] Ti Farias RN RN jd3 Roque, Sharlyn sr6 [facility]
--- NOTE | 2019-09-27 20:08 | EDPHYS ---
Physician Documentation [facility] Name: Jordan Flaherty Age: 54 yrs Sex: Male : 1965 Arrival Date: 09/27/2019 Time: 18:56 Bed 19 Private MD: ED Physician Mikel Padilla HPI: 09/27 19:40 This 54 yrs old Male presents to ER via Ambulatory with complaints of Abscess.amanda 19:40 The patient presents with an abscess of the groin and right femoral area, The patient amanda presents with cellulitis of the groin and right femoral area. Description: The affected area is moderate sized, confluent, erythematous, fluctuant, hot. Onset: The symptoms/episode began/occurred 3 day(s) ago. Possible cause(s): unknown. Associated signs and symptoms: Pertinent positives: erythema, fever, swelling. Modifying factors: the symptoms are alleviated by nothing, remaining still, the symptoms are aggravated by movement, walking, pressure, squeezing the lesion and expressing the contents, touching. Severity of symptoms: At their worst the symptoms were moderate, in the emergency department the symptoms are actually worse, mildly. The patient has experienced similar episodes in the past, a few times. Historical: - Allergies: 19:29 No Known Allergies; jd3 - Home Meds: 19:29 amitriptyline 75 mg Oral tab 1 tab nightly [Active]; aspirin 325 mg Oral tab 1 tab once jd3 daily [Active]; atenolol 25 mg Oral tab 1 tab once daily [Active]; glyburide 2.5 mg Oral tab 2 tabs twice a day [Active]; lisinopril 2.5 mg Oral tab 1 tab once daily [Active]; Novolin 70/30 [place] Sub-Q 35 unit twice a day [Active]; pravastatin 20 mg Oral tab 1 tab once daily [Active]; Protonix Oral [Active]; topiramate 50 mg Oral tab as needed [Active]; Xanax 0.5 mg Oral tab 1 tab daily [Active]; duloxetine oral oral [Active]; - PMHx: 19:29 Diabetes - IDDM; Hyperlipidemia; Hypertension; Gastroparesis; TIA; jd3 - PSHx: 19:29 staff removed from back of neck, somach, and over the eye; jd3 - Immunization history:: Adult Immunizations up to date. - Social history:: Smoking status: unknown. - Family history:: not pertinent. - Ebola Screening: : Patient negative for fever greater than or equal to 101.5 degrees Fahrenheit, and additional compatible Ebola Virus Disease symptoms Patient denies exposure to infectious person. ROS: 19:40 Constitutional: Negative for fever, chills, and weight loss, Eyes: Negative for injury, amanda pain, redness, and discharge, ENT: Negative for injury, pain, and discharge, Neck: Negative for injury, pain, and swelling, Respiratory: Negative for shortness of breath, cough, wheezing, and pleuritic chest pain, Abdomen/GI: Negative for abdominal pain, nausea, vomiting, diarrhea, and constipation, Back: Negative for injury and pain, : Negative for injury, bleeding, discharge, and swelling, MS/Extremity: Negative for injury and deformity, Neuro: Negative for headache, weakness, numbness, tingling, and seizure, Psych: Negative for depression, anxiety, suicide ideation, homicidal ideation, and hallucinations, Allergy/Immunology: Negative for hives, rash, and allergies, Endocrine: Negative for neck swelling, polydipsia, polyuria, polyphagia, and marked weight changes, Hematologic/Lymphatic: Negative for swollen nodes, abnormal bleeding, and unusual bruising. 19:40 Cardiovascular: Positive for palpitations. 19:40 Abdomen/GI: Positive for nausea and vomiting. 19:40 Skin: Positive for erythema, swelling, of the groin and right femoral area. Exam: 19:40 Constitutional: This is a well developed, well nourished patient who is awake, alert, amanda and in no acute distress. Head/Face: Normocephalic, atraumatic. Eyes: Pupils equal round and reactive to light, extra-ocular motions intact. Lids and lashes normal. Conjunctiva and sclera are non-icteric and not injected. Cornea within normal limits. Periorbital areas with no swelling, redness, or edema. ENT: Nares patent. No nasal discharge, no septal abnormalities noted. Tympanic membranes are normal and external auditory canals are clear. Oropharynx with no redness, swelling, or masses, exudates, or evidence of obstruction, uvula midline. Mucous membranes moist. Neck: Trachea midline, no thyromegaly or masses palpated, and no cervical lymphadenopathy. Supple, full range of motion without nuchal rigidity, or vertebral point tenderness. No Meningismus. Chest/axilla: Normal chest wall appearance and motion. Nontender with no deformity. No lesions are appreciated. Respiratory: Lungs have equal breath sounds bilaterally, clear to auscultation and percussion. No rales, rhonchi or wheezes noted. No increased work of breathing, no retractions or nasal flaring. Abdomen/GI: Soft, non-tender, with normal bowel sounds. No distension or tympany. No guarding or rebound. No evidence of tenderness throughout. Back: No spinal tenderness. No costovertebral tenderness. Full range of motion. Male : Normal genitalia with no discharge or lesions. MS/ Extremity: Pulses equal, no cyanosis. Neurovascular intact. Full, normal range of motion. Neuro: Awake and alert, GCS 15, oriented to person, place, time, and situation. Cranial nerves II-XII grossly intact. Motor strength 5/5 in all extremities. Sensory grossly intact. Cerebellar exam normal. Normal gait. Psych: Awake, alert, with orientation to person, place and time. Behavior, mood, and affect are within normal limits. 19:40 Cardiovascular: Rate: tachycardic, Rhythm: regular, Pulses: Pulses are 4+ in bilateral radial, brachial, femoral, popliteal, posterior tibial and and dorsalis pedis arteries.. Heart sounds: normal, normal S1and S2, no S3 or S4, no murmur, no rub, no gallop, Edema: is not appreciated, JVD: is not appreciated. Vital Signs: 19:20 BP 147 / 85; Pulse 102; Resp 24; Temp 98.9; Pulse Ox 98% on R/A; Weight 99.79 kg (R); dm5 Height 6 ft. 0 in. (182.88 cm); Pain 9/10; 20:48 BP 105 / 76 RA; Pulse 88; Resp 20; Temp 98.8(O); Pulse Ox 95% ; Pain 7/10; tt1 21:24 BP 109 / 68; Pulse 87; Resp 20; Temp 99.6(O); Pulse Ox 96% ; Pain 7/10; tt1 19:20 Body Mass Index 29.84 (99.79 kg, 182.88 cm) dm5 MDM: 19:24 Patient medically screened. [facility] 19:40 Data reviewed: vital signs, nurses notes, lab test result(s), EKG, radiologic studies, amanda plain films. 09/27 19:19 Order name: Basic Metabolic Panel; Complete Time: 21:00 [facility] 09/27 19:19 Order name: Blood Culture Adult (2) [facility] 09/27 19:19 Order name: CBC with Diff; Complete Time: 21:00 [facility] 09/27 19:19 Order name: Ckmb; Complete Time: 21:00 [facility] 09/27 19:19 Order name: CPK; Complete Time: 21:00 [facility] 09/27 19:19 Order name: Lactate; Complete Time: 21:00 [facility] 09/27 19:19 Order name: LFT's; Complete Time: 21:00 [facility] 09/27 19:19 Order name: Lipase; Complete Time: 21:00 [facility] 09/27 19:19 Order name: Procalcitonin; Complete Time: 21:00 [facility] 09/27 19:19 Order name: Protime (+inr); Complete Time: 21:00 [facility] 09/27 19:19 Order name: Ptt, Activated; Complete Time: 21:00 [facility] 09/27 19:19 Order name: Troponin (emerg Dept Use Only); Complete Time: 21:00 [facility] 09/27 19:19 Order name: Urine Microscopic Only [facility] 09/27 20:05 Order name: Glucose, Ancillary Testing; Complete Time: 21:00 [facility] 09/27 19:19 Order name: Chest Single View XRAY [facility] 09/27 20:48 Order name: Basic Metabolic Panel EDMS 09/27 20:48 Order name: Basic Metabolic Panel [facility] 09/27 20:48 Order name: CBC with Automated Diff EDMS 09/27 20:48 Order name: CBC with Automated Diff EDMS 09/27 20:48 Order name: Protime (+INR) EDMS 09/27 20:48 Order name: Protime (+INR) EDMS 09/27 20:48 Order name: PTT, Activated Partial Thromb EDMS 09/27 20:48 Order name: PTT, Activated Partial Thromb EDMS 09/27 20:51 Order name: Hemoglobin A1c EDMS 09/27 21:21 Order name: Glucose, Ancillary Testing EDMS 09/27 19:19 Order name: Accucheck; Complete Time: 19:55 [facility] 09/27 19:19 Order name: Cardiac monitoring; Complete Time: 19:56 dm5 09/27 19:19 Order name: EKG - Nurse/Tech; Complete Time: 19:56 5 09/27 19:19 Order name: IV Saline Lock - Large Bore; Complete Time: 19:56 5 09/27 19:19 Order name: Labs collected and sent; Complete Time: 19:56 5 09/27 19:19 Order name: O2 Per Protocol; Complete Time: 19:56 5 09/27 19:19 Order name: O2 Sat Monitoring; Complete Time: 19:56 5 09/27 20:48 Order name: CONS Pharmacy Consult [facility] 09/27 20:48 Order name: CONS Pharmacy Consult [facility] 09/27 20:48 Order name: CONS Physician Consult [facility] 09/27 20:48 Order name: NPO EDMS Administered Medications: 19:45 Drug: NS 0.9% (30 ml/kg) 30 ml/kg Route: IV; Rate: bolus; Site: right antecubital; 22:28 Follow up: Response: No adverse reaction; IV Status: Completed infusion; IV Intake: 2900ml 19:50 Drug: Zosyn 3.375 grams Route: IVPB; Infused Over: 60 mins; Site: right antecubital; 20:44 Follow up: Response: No adverse reaction; IV Status: Completed infusion sr6 19:52 Drug: morphine 4 mg {Note: RASS 0.} Route: IVP; Site: right antecubital; 20:45 Follow up: Response: No adverse reaction; Pain is decreased; RASS: Alert and Calm (0) sr6 19:54 Drug: Zofran 4 mg Route: IVP; Site: right antecubital; 20:45 Follow up: Response: No adverse reaction; Nausea is decreased sr6 20:30 Drug: Insulin Regular Human 10 units {Co-Signature: (Winsy Habalo).} Route: IVP; sr6 Site: right antecubital; 21:10 Follow up: Response: No adverse reaction sr6 20:30 Drug: Insulin Regular Human 10 units {Co-Signature: (Winsy Habalo).} Route: Sub-Q; sr6 Site: right upper arm; 21:09 Follow up: Response: No adverse reaction sr6 20:30 Drug: morphine 4 mg Route: IVP; Site: right antecubital; sr6 21:09 Follow up: Response: No adverse reaction; Pain is decreased; RASS: Alert and Calm (0) sr6 20:59 Drug: vancoMYCIN 1 grams Route: IVPB; Infused Over: 2 hrs; Site: right antecubital; sr6 22:10 Follow up: Response: No adverse reaction; IV Status: Infusion continued upon admission 21:05 Drug: Zofran 4 mg Route: IVP; Site: right antecubital; sr6 21:10 Follow up: Response: No adverse reaction; Nausea is decreased sr6 Disposition: 09/27/19 20:06 Hospitalization ordered by Georges Luciano for Inpatient Admission. Preliminary diagnosis are Cutaneous abscess of other sites - right groin, Type 1 diabetes mellitus, Vomiting, Fever, unspecified. - Bed requested for Telemetry/MedSurg (Inpatient). - Status is Inpatient Admission. - Condition is Fair. - Problem is new. - Symptoms have improved. UTI on Admission? No Signatures: Dispatcher [employer] Marizol Juarez RN RN dm5 Mikel Padilla MD MD cha Ballard, Brenda, RN RN [facility] Ti Farias RN RN Susan Freitas 6 [facility] Corrections: (The following items were deleted from the chart) 20:09 20:06 Hospitalization Ordered by Georges Luciano MD for Inpatient Admission. Preliminary amanda diagnosis is Cutaneous abscess of other sites - right groin; Type 1 diabetes mellitus. Bed requested for Telemetry/MedSurg (Inpatient). Status is Inpatient Admission. Condition is Fair. Problem is new. Symptoms have improved. UTI on Admission? No. amanda 21:05 20:09 09/27/2019 20:06 Hospitalization Ordered by Georges Luciano MD for Inpatient Admission. Preliminary diagnosis is Cutaneous abscess of other sites - right groin; Type 1 diabetes mellitus; Vomiting; Fever, unspecified. Bed requested for Telemetry/MedSurg (Inpatient). Status is Inpatient Admission. Condition is Fair. Problem is new. Symptoms have improved. UTI on Admission? No. amanda 22:33 21:05 09/27/2019 20:06 Hospitalization Ordered by Georges Luciano MD for Inpatient Admission. Preliminary diagnosis is Cutaneous abscess of other sites - right groin; Type 1 diabetes mellitus; Vomiting; Fever, unspecified. Bed requested for Telemetry/MedSurg (Inpatient). Status is Inpatient Admission. Condition is Fair. Problem is new. Symptoms have improved. UTI on Admission? No. bb
[2019-09-27 20:11] LABS: ALT/SGPT 19 U/L (12-78); AST/SGOT 10 U/L (15-37); Albumin 2.8 g/dL (3.4-5.0); Alkaline Phosphatase 130 U/L (45-117); BUN Blood Urea Nitrogen 21 mg/dL (7-18); Bicarbonate 23 mmol/L (21-32); Bilirubin Direct 0.3 mg/dL (0-0.2); Bilirubin Total 1.3 mg/dL (0.2-1.0); Potassium 4.8 mmol/L (3.5-5.1); Protein, Total 8.1 g/dL (6.4-8.2); Sodium Level 128 mmol/L (136-145)
[2019-09-27 20:12] LABS: CKMB Creatine Kinase MB 2.6 ng/mL (0.3-3.6); Creatine Phosphokinase 92 U/L (39-308); Glucose Level 468 mg/dL (74-106); Lipase 272 U/L (73-393); Troponin (Emerg Dept Use Only) < 0.02 ng/mL (0.0-0.045)
[2019-09-27] MEDS ORDERED: INSULIN -REGULAR HUMAN 50 UNIT/0.5 ML ML ONE (20:28)
[2019-09-27] MEDS ORDERED: ACETAMINOPHEN 500 MG TAB PO PRN (20:43)
[2019-09-27] MEDS ORDERED: D50W 25 GM/50 ML SYRINGE/VIAL IV PRN (20:47)
[2019-09-27] MEDS ORDERED: GLUCAGON 1 MG/VIAL IM PRN (20:47)
[2019-09-27] MEDS: GABAPENTIN 400 MG CAP PO SCH (21:00)
--- NOTE | 2019-09-27 21:13 | RAD REPORT ---
EXAM DESCRIPTION: RAD - Chest Single View - 09/27/2019 7:58 pm CLINICAL HISTORY: Shortness of breath, sepsis COMPARISON: June 2018 TECHNIQUE: AP portable chest image was obtained 1954 hours . FINDINGS: Lung volumes are relatively low but similar to comparison. No new or progressive lung pare nchymal finding. Heart and vasculature are normal. No measurable pleural effusion and no pneumothorax . No acute bony abnormality seen. No acute aortic findings suspected. IMPRESSION: No acute cardiopulmonary process.
[2019-09-27] MEDS ORDERED: VANCOMYCIN 750 MG in NA CHLORIDE 0.9% 250 ML IV ONE (21:30)
[2019-09-27] MEDS: ONDANSETRON 4 MG/2 ML VIAL IV PRN (22:42)
[2019-09-27] MEDS: MORPHINE 4 MG/ML SYR IV PRN (22:42)
[2019-09-27 22:47] VITALS: BMI 29.8
[2019-09-27] MEDS: INSULIN 70/30 100 UNITS/ML SQ SCH (23:52)
[2019-09-28] MEDS: AMPICILLIN/SULBACT 3 GM in NA CHLORIDE 0.9% 100 ML IVPB SCH ×4 (00:41→17:16)
[2019-09-28] MEDS ORDERED: AMPICILLIN/SULBACTAM 3GM/VIAL ONE (00:41)
[2019-09-28] MEDS ORDERED: VANCOMYCIN 1 GM/VIAL ONE (00:42)
[2019-09-28] MEDS ORDERED: NA CHLORIDE 0.9% 500 ML ONE (00:47)
[2019-09-28] MEDS ORDERED: VANCOMYCIN 750 MG in NA CHLORIDE 0.9% 250 ML IV ONE (01:00)
[2019-09-28] MEDS: ONDANSETRON 4 MG/2 ML VIAL IV PRN ×5 (03:44→22:40)
[2019-09-28] MEDS: MORPHINE 4 MG/ML SYR IV PRN ×5 (03:45→22:40)
[2019-09-28] MEDS ORDERED: NA CHLORIDE 0.9% 250 ML ONE (04:53)
[2019-09-28 06:35] LABS: Absolute Lymphocytes (CBC) 1.7 K/uL (0.7-4.9); Basophils % 0.7 % (0-1.3); Hematocrit 38.6 % (39.6-49.0); Lymphocytes % 10.1 % (15.3-44.8); RBC Red Blood Cell Count 4.42 M/uL (4.33-5.43)
[2019-09-28 06:45] LABS: Protime INR 1.01
[2019-09-28] MEDS: GABAPENTIN 400 MG CAP PO SCH ×4 (07:45→21:03)
[2019-09-28] MEDS: PANTOPRAZOLE 40MG TABLET PO SCH (07:45)
[2019-09-28] MEDS: INSULIN 70/30 100 UNITS/ML SQ SCH ×2 (08:00→17:16)
[2019-09-28] MEDS ORDERED: D50W 25 GM/50 ML SYRINGE/VIAL IV PRN (09:01)
[2019-09-28] MEDS ORDERED: GLUCAGON 1 MG/VIAL IM PRN (09:01)
--- NOTE | 2019-09-28 09:04 | P.HP ---
Certification for Inpatient Patient admitted to: Inpatient With expected LOS: >2 Midnights Patient will require the following post-hospital care: Home Health Services Practitioner: I am a practitioner with admitting privileges, knowledge of patient current condition, hospital course, and medical plan of care. Services: Services provided to patient in accordance with Admission requirements found in Title 42 Section 412.3 of the Code of Federal Regulations Patient History Date of Service: 09/27/19 Reason for admission: Right inguinal and pubic abscess History of Present Illness: Patient is a 54-year-old gentleman who came to the hospital with pain in his right groin. Patient also had pubic abscess. Patient was having severe pain. He is scheduled for an MRI in the next few days to further evaluate a polyneuropathy. Patient has been having fever, shakes, and chills. Patient is having significant pain and tenderness. Patient will need further inpatient treatment. Patient will be admitted to the hospital for further evaluation. Allergies No Known Allergies Allergy (Verified 09/27/19 22:53) Home Medications: Gabapentin [Neurontin] 800 mg PO QID 12/27/16 Insulin 70/30 NPH/Reg Human [Novolin 70/30*] 45 unit SQ BID 12/27/16 Lisinopril [Zestril] 2.5 mg PO DAILY 12/27/16 Pravastatin Sodium [Pravachol] 20 mg PO DAILY 12/27/16 Zolpidem Tartrate [Ambien*] 5 mg PO BEDTIME PRN 12/29/17 Pantoprazole [Protonix Tab*] 40 mg PO DAILY 12/30/17 Promethazine HCl 25 mg PO Q4HP PRN 12/30/17 - Past Medical/Surgical History Has patient received pneumonia vaccine in the past: No Diabetic: Yes -: HTN -: IDDM -: MIGRAINES -: TIA 06/07 -: high cholesterol -: gastroparesis -: 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 moist/pink, EOMI, Sclerae nonicteric Neck: Supple, 2+ carotid pulse no bruit, No LAD, Without JVD or thyroid abnormality Respiratory: Clear to auscultation bilaterally, Normal air movement Cardiovascular: Regular rate/rhythm, Normal S1 S2 Gastrointestinal: Normal bowel sounds, Soft and benign, Non-distended, No tenderness Musculoskeletal: No clubbing, No swelling, No tenderness Integumentary: No rashes Neurological: Normal gait, Normal speech, Normal strength at 5/5 x4 extr, Normal tone, Sensation intact, Cranial nerves 3-12 intact, Normal affect Lymphatics: No axilla or inguinal lymphadenopathy - Studies Laboratory Data (last 24 hrs) 09/27/19 19:37: PT 11.4, INR 0.96, APTT 30.1 09/27/19 19:37: WBC 16.5 H, Hgb 14.8, Hct 44.6, Plt Count 262 09/27/19 19:37: Sodium 128 L, Potassium 4.8, BUN 21 H, Creatinine 1.21, Glucose 468 H*, Total Bilirubin 1.3 H, AST 10 L, ALT 19, Alkaline Phosphatase 130 H, Lipase 272 Assessment & Plan - Problems (Diagnosis) (1) Abscess of pubic region Current Visit: Yes Status: Acute (2) Abscess of right groin Current Visit: Yes Status: Acute (3) CVA (cerebral vascular accident) Onset Date: 06/28/16 Current Visit: No Status: Chronic Qualifiers: (4) Diabetes mellitus Onset Date: 06/03/16 Current Visit: No Status: Chronic Qualifiers: (5) History of TIA (transient ischemic attack) Current Visit: No Status: Chronic (6) Hyperlipidemia Current Visit: No Status: Chronic Qualifiers: (7) Hypertension Onset Date: 06/17/16 Current Visit: No Status: Chronic Qualifiers: - Plan 1. Continue with IV antibiotic 2. Continue with local wound care 3. Wound care consultation/surgical consultation 4. Gentle IV hydration 5. Monitor CBC 6. Strict blood sugar monitoring 7. Pain control 8. GI and DVT prophylaxis Discharge Plan: Home Plan to discharge in: Greater than 2 days - Advance Directives Does patient have a Living Will: No Does patient have a Durable POA for Healthcare: No - Code Status/Comfort Care Code Status Assessed: Yes Code Status: Full Code Critical Care: No
[2019-09-28] MEDS ORDERED: INFLUENZA VACCINE (for 3y+) 0.5 ML DOSE IMVAC ONE (10:00)
[2019-09-28] MEDS: VANCOMYCIN 1.75 GM in NA CHLORIDE 0.9% 500 ML IV SCH ×2 (10:21→21:00)
--- NOTE | 2019-09-28 10:38 | RAD REPORT ---
EXAM DESCRIPTION: CT - Pelvis W/Cont - 09/28/2019 9:46 am CLINICAL HISTORY: Pubic abscess COMPARISON: February 2018 TECHNIQUE: Computed axial tomography of the pelvis was obtained. 100 cc Isovue-300 administered intr avenously All CT scans are performed using dose optimization technique as appropriate and may include automated exposure control or mA/KV adjustment according to patient size. FINDINGS: Moderate stranding is present within the fat of the right inguinal region/right pubis. An approximately 3 x 2 centimeter fluid collection is present within the right pubis. An enhancing wall is not seen. It abuts the skin. Several adjacent reactive lymph nodes are noted. There is no evidence of diverticulitis. The prostate gland is moderately enlarged. Large umbilical hernia contains fat IMPRESSION: Cellulitis involving the right inguinal region/right pubis. 3 x 2 centimeter fluid collection within the right pubis has the appearance of an early abscess
[2019-09-28] MEDS: INSULIN -REGULAR HUMAN 50 UNIT/0.5 ML ML SQ SCH ×4 (11:30→21:04)
[2019-09-28] MEDS ORDERED: MIDAZOLAM HCL 2 MG/2 ML INJ ONE (11:55)
[2019-09-28] MEDS ORDERED: PROPOFOL 200 MG/20 ML VIAL IV ONE (11:55)
[2019-09-28] MEDS ORDERED: ONDANSETRON 4 MG/2 ML VIAL ONE (11:56)
[2019-09-28] MEDS ORDERED: FENTANYL CITR 100 MCG/2 ML ONE (11:56)
[2019-09-28] MEDS ORDERED: LIDOCAINE 1% MPF 5 ML VIAL ONE (11:56)
[2019-09-28] MEDS ORDERED: BUPIVACA 0.5%/EPI 0.0005%/PF 30 ML VIAL ONE (11:57)
[2019-09-28] MEDS ORDERED: NA CHLORIDE 0.9% 1,000 ML ONE (11:58)
--- NOTE | 2019-09-28 12:20 | P.PN ---
Subjective Date of Service: 09/28/19 Chief Complaint: Right inguinal and pubic abscess Subjective: No new changes The patient states the IV morphine is effective while it last but does not last long enough. He is afebrile. Physical Examination - Vital Signs Temperature: 99.3 F Blood Pressure: 130/61 Pulse: 94 Respirations: 18 Pulse Ox (%): 92 - Physical Exam General: Alert, In no apparent distress, Oriented x3 HEENT: Mucous membr. moist/pink Neck: Supple Respiratory: Clear to auscultation bilaterally, Normal air movement Cardiovascular: No edema, Regular rate/rhythm, Normal S1 S2 Gastrointestinal: Normal bowel sounds, Soft and benign, Non-distended, No tenderness Musculoskeletal: Other (Right groin abscess) Integumentary: No rashes Neurological: Normal speech - Studies Laboratory Data (last 24 hrs) 09/27/19 19:37: PT 11.4, INR 0.96, APTT 30.1 09/27/19 19:37: WBC 16.5 H, Hgb 14.8, Hct 44.6, Plt Count 262 09/27/19 19:37: Sodium 128 L, Potassium 4.8, BUN 21 H, Creatinine 1.21, Glucose 468 H*, Total Bilirubin 1.3 H, AST 10 L, ALT 19, Alkaline Phosphatase 130 H, Lipase 272 Assessment And Plan - Current Problems (Diagnosis) (1) Abscess of right groin Current Visit: Yes Status: Acute (2) Diabetes mellitus Onset Date: 06/03/16 Current Visit: No Status: Chronic Qualifiers: (3) Hypertension Onset Date: 06/17/16 Current Visit: No Status: Chronic Qualifiers: - Plan Patient has a history of staph abscess in the past but they are not sure if it was MRSA. Continue IV vancomycin and Unasyn. Patient seen by Dr. Bermeo and plan for incision and drainage. Pain management with IV morphine. Add IV Toradol p.r.n. IV hydration Blood pressure is stable. Deep tissue wound culture. Follow blood culture. Hold Novolin 70 30 as patient is NPO. Manage blood sugar with insulin sliding scale.
--- NOTE | 2019-09-28 12:44 | P.OP ---
Candle Extrusion Machine Operator: Benito Han Preoperative diagnosis: RIGHT pubic abscess Postoperative diagnosis: RIGHT Pubic abscess and necrotizing soft tissue infection Primary procedure: Debridement of RIGHT Pubic abscess and necrotizing soft tissue infection Anesthesia: GETA + Local Estimated blood loss: <10cc Specimen: Cultures and tissue sent Findings: extended to fascia ~[id number] 5cm Complications: None Transferred to: Recovery Room Condition: Good
[2019-09-28] MEDS ORDERED: VANCOMYCIN 1.75 GM in NA CHLORIDE 0.9% 500 ML IV SCH ×2 (13:00→15:00)
[2019-09-28] MEDS: ENOXAPARIN 40 MG/0.4 ML SQ SCH (16:16)
[2019-09-28] MEDS ORDERED: ENOXAPARIN 30 MG/0.3 ML SQ SCH ×2 (17:00)
--- NOTE | 2019-09-28 17:18 | EKG ---
Test Date: 2019-09-27 Test Time: 19:46:21 Seater Grinder: TT MEASUREMENT RESULTS: Intervals: Rate: 98 NE: 184 QRSD: 90 QT: 358 QTc: 457 [place]: P: 56 NE: 184 QRS: 49 T: 39 INTERPRETIVE STATEMENTS: Normal sinus rhythm Possible Left atrial enlargement Anteroseptal infarct, age undetermined Abnormal ECG Compared to ECG 06/01/2018 18:07:06 Myocardial infarct finding still present Electronically Signed On 09-28-19 17:18:06 DISTILLERY MILLER HELPER by Willie Longoria
--- NOTE | 2019-09-28 17:38 | CON ---
Date of Consultation: 09/28/2019 Brief History Of Present Illness: Patient is a 54-year-old gentleman who came to the hospital with p ain in his right groin approximately beginning 2 days ago. He said that this area got red, inflamed and more tender. 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 He was scheduled for an MRI for polyneuropathy as well, but developed fever, shakes, chills, and as such with pain, tenderness in the groin, he came to the hospital with the above-stated compla ints. Past Medical History: Known for hypertension, diabetes, migraines, TIA on 06/07, high cholesterol, ga stroparesis, staph infections x5. Past Surgical History: Includes the staph incision and drainages with wound care multiple times, rig ht knee arthroscopic repair. Home Medications: Include Neurontin, insulin, lisinopril, Pravachol, Ambien, Protonix, and Phenergan . Family History: His father had a stroke. His mother had cancer. Social History: He denies smoking, alcohol, recreational drug use. Review of Systems: A 10-point review of systems other than HPI, denies. Physical Examination: Vital Signs: At the time of my examination, his BMI is 29.8. His vital signs were blood pressure 13 0/61, heart rate is 94, respiratory rate 18, temperature 99.3. General: He is awake, alert, and oriented. Psychiatric: Appropriately conversive. HEENT: Normocephalic. Sclerae anicteric. Mucous membranes are moist. Oropharynx clear. Neck: Supple. No JVD. Chest: Normal expansion and excursion. Cardiovascular: Regular rate and rhythm. Pulmonary: Clear to auscultation bilaterally. Abdomen: Soft, nontender, nondistended. Skin: Focused examination of the right groin shows an area of abscess, cellulitis of the right pubic area. It is on the mons pubis area to the right of midline. It does not extend to the inguinal cre ase and does not appear to involve the scrotum or penis at this time. There is no additional finding s on skin examination other than old wounds, posterior neck is one that appears to be in healing stag e. Extremities: No clubbing, cyanosis, edema. Skin: Warm and dry. Laboratory Data: Reveals a white blood count of 6.6, hemoglobin is 12.9, hematocrit of 38.6, platele t count is 235, neutrophils 78%. His PT is 11.9, INR 1.1, PTT is 27.6. Sodium 136, potassium 4.0, c hloride 103, carbon dioxide 26, BUN 19, creatinine 0.9, glucose is 180 down from 460 on admission. H is lactic acid is 1.0. His total bilirubin is 1.3, alkaline phosphatase is 130. He had imaging perf ormed which included a pelvis CT, which was officially read as a 3.2 cm fluid collection within the r ight pubis and has the appearance of an early abscess. Assessment And Plan: This is a 54-year-old male who comes in with signs and symptoms of a pubic absc ess. 1.IV fluid hydration. 2.Antibiotic coverage. 3.I have explained risks, benefits, alternatives of incision and drainage of this pubic abscess, inc luding but not limited to bleeding, infection, damage to surrounding tissue, need for further operati ve procedures, nerve injury, injury to vascular structures and limb loss, limb injury. He agrees to proceed as indicated. Thank you for this interesting consult. SANTO/SAMSON Voice ID: [id number] Report ID: [id number]
[2019-09-28] MEDS: ZOLPIDEM TARTRATE 5 MG TABLET PO PRN (21:03)
[2019-09-28] MEDS: ATORVASTATIN 10 MG TAB PO SCH (21:04)
[2019-09-28] MEDS: KETOROLAC 30 MG/ML INJ IV PRN (21:04)
[2019-09-29] MEDS: AMPICILLIN/SULBACT 3 GM in NA CHLORIDE 0.9% 100 ML IVPB SCH ×4 (00:35→17:02)
--- NOTE | 2019-09-29 03:13 | OP ---
Date of Procedure: 09/28/2019 Surgeon: Shahzad Bermeo MD, Preoperative Diagnosis: Right pubic abscess. Postoperative Diagnosis: Right pubic abscess and necrotizing soft tissue infection. Procedure: Debridement of right pubic abscess and necrotizing soft tissue infection. Anesthesia: General endotracheal plus local with 0.5% Marcaine with epinephrine. Estimated Blood Loss: Less than 10 mL. Specimen: Cultures and tissue sent. Findings: The necrotizing soft tissue infection extended to the fascial planes deep to the subcutane ous layer as well as into investing through the full thickness of the fat layer. Complications: None. Disposition: Transferred to the recovery room in good condition. Procedure In Detail: After informed was obtained, patient was brought to the operating room, prepped and draped in the usual sterile fashion. After adequate anesthesia was achieved, an area of the rig ht pubic area was anesthetized with 0.25% Marcaine with epinephrine. A linear incision was made over the right pubic area extending approximately 5 cm. Immediately encountered was a murky abscess, whi ch was cultured at this time for both aerobic and anaerobic speciation. I opened this in its entiret y by digitizing and noted the infection extended much deeper to the fascial planes with necrotizing s oft tissue infection appearance. I therefore opened a curvilinear incision extending superiorly to f ollow the tract of the soft tissue infection. I then debrided all of this using sharp dissection wit h Metzenbaum scissors down through the subcutaneous fat and deep up to the layer of the fascia, but n ot involving the fascia. The area was widely debrided. Hemostasis was easily achieved with electroc autery and the area of the right pubis after all necrotic tissue was removed, a pulse lavage device w as used to irrigate the area copiously. The area was inspected for hemostasis once again, which requ ired minimal hemostatic maneuvers with electrocautery. After this was performed, a Betadine-soaked g auze was packed into the wound and a sterile dressing was placed over the top. Patient tolerated the procedure well without evidence of complication and transferred to PACU in good condition. All coun ts were correct at the end of the case. SANTO/SAMSON Voice ID: [id number] Report ID: [id number]
[2019-09-29 06:56] LABS: Absolute Lymphocytes (CBC) 2.3 K/uL (0.7-4.9); Basophils % 0.7 % (0-1.3); Hematocrit 34.1 % (39.6-49.0); Lymphocytes % 21.5 % (15.3-44.8); MPV 9.8 fL (7.6-11.3); RBC Red Blood Cell Count 3.89 M/uL (4.33-5.43)
[2019-09-29 07:09] LABS: Potassium 3.9 mmol/L (3.5-5.1)
[2019-09-29] MEDS: KETOROLAC 30 MG/ML INJ IV PRN ×2 (08:56→17:04)
[2019-09-29] MEDS: INSULIN -REGULAR HUMAN 50 UNIT/0.5 ML ML SQ SCH ×4 (08:58→20:23)
[2019-09-29] MEDS: GABAPENTIN 400 MG CAP PO SCH ×4 (08:58→20:21)
[2019-09-29] MEDS: INSULIN 70/30 100 UNITS/ML SQ SCH (09:02)
[2019-09-29] MEDS: PANTOPRAZOLE 40MG TABLET PO SCH (09:02)
[2019-09-29] MEDS: VANCOMYCIN 1.75 GM in NA CHLORIDE 0.9% 500 ML IV SCH ×2 (09:05→21:00)
[2019-09-29] MEDS: MORPHINE 4 MG/ML SYR IV PRN ×2 (10:43→23:42)
[2019-09-29] MEDS: ONDANSETRON 4 MG/2 ML VIAL IV PRN (10:47)
--- NOTE | 2019-09-29 12:31 | P.PN ---
Subjective Date of Service: 09/29/19 Chief Complaint: Right inguinal and pubic abscess Subjective: Improving (Patient has pain in RIGHT groin. Feels much better though ) Physical Examination - Vital Signs Temperature: 97.7 F Blood Pressure: 141/75 Pulse: 97 Respirations: 16 Pulse Ox (%): 92 - Physical Exam General: Alert, In no apparent distress, Cooperative Integumentary: Other (wound is clean and dry, no infection, packed well) Assessment And Plan - Plan Necrotizing soft tissue infection of RIGHT groin s/p excisional debridement - santyl / dakins / packing daily - continue antibiotics - DC delatorre - ambulate with assist - ok to start lovenox
[2019-09-29] MEDS ORDERED: TRAMADOL HCL 50 MG TAB PO PRN (14:00)
--- NOTE | 2019-09-29 14:07 | P.PN ---
Subjective Date of Service: 09/29/19 Primary Care Provider: Dr. Herrera Chief Complaint: Right inguinal and pubic abscess Subjective: Other (Pain present.) Physical Examination - Vital Signs Temperature: 97.7 F Blood Pressure: 141/75 Pulse: 97 Respirations: 16 Pulse Ox (%): 92 - Physical Exam General: Alert, In no apparent distress, Oriented x3, Cooperative HEENT: Atraumatic Neck: Supple Respiratory: Clear to auscultation bilaterally, Normal air movement Cardiovascular: Normal pulses, Regular rate/rhythm Gastrointestinal: Normal bowel sounds Musculoskeletal: Other (Wound to the right inguinal region. Pain with palpation ) Neurological: Normal speech, Normal strength at 5/5 x4 extr, Normal tone, Normal affect - Studies Medications List Reviewed: Yes Assessment & Plan Discharge Plan: LTAC Plan to discharge in: 48 Hours Physician Review Additional Text: Impression: Necrotizing soft tissue infection of the right groin status post I and D Diabetes mellitus type 2, insulin dependent with hyperglycemia Diabetic neuropathy Hypertension Hyperlipidemia GERD Plan: Necrotizing soft tissue infection of the right groin status post I and D: Case discussed at length with surgery. Will continue to monitor closely. Surgery to adjust wound care. Patient would benefit with long-term acute care facility placement. Will consult social secretary to help in this process. Will consult infectious disease for recommendation on antibiotics-duration/choice/plan of care. Patient currently on vancomycin and unasyn. Pharmacy to monitor and adjust appropriately. Will order PICC line as the patient will likely require long-term IV antibiotic therapy. Will need to get diabetes better controlled. Anticipate possible discharge to long-term acute care facility as early as the next 48 hr. Diabetes mellitus type 2, insulin dependent with hyperglycemia: Will discontinue insulin 70/30. Will change to Lantus 30 units subcu twice daily. Will continue to monitor Accu-Cheks. Will continue to adjust for better diabetic control. A1c pending. Diabetic neuropathy: Continue with medication, will adjust pain medication. Hypertension: Continue with medication. Hyperlipidemia: Continue medication. GERD: Continue medication Time Spent Managing Pts Care (In Minutes): 55
[2019-09-29] MEDS: HYDROCODONE/APAP 7.5/325 MG TAB PO PRN ×2 (14:08→20:22)
[2019-09-29] MEDS: INSULIN GLARGINE 100 UNITS/ML SQ SCH ×2 (14:52→20:15)
[2019-09-29] MEDS: ENOXAPARIN 40 MG/0.4 ML SQ SCH (17:01)
[2019-09-29] MEDS: ATORVASTATIN 10 MG TAB PO SCH (20:23)
[2019-09-29] MEDS: ZOLPIDEM TARTRATE 5 MG TABLET PO PRN (20:23)
[2019-09-29] MEDS: SODIUM HYPOCHLORITE 0.5% 473 ML TOP SCH (20:24)
[2019-09-29] MEDS ORDERED: SODIUM HYPOCHLORITE 0.25% 473 ML TOP SCH (21:00)
[2019-09-30] MEDS: AMPICILLIN/SULBACT 3 GM in NA CHLORIDE 0.9% 100 ML IVPB SCH ×4 (00:57→17:27)
[2019-09-30] MEDS: MORPHINE 4 MG/ML SYR IV PRN ×4 (04:39→19:27)
[2019-09-30] MEDS: ONDANSETRON 4 MG/2 ML VIAL IV PRN ×3 (04:39→17:26)
[2019-09-30 06:14] LABS: Absolute Lymphocytes (CBC) 2.3 K/uL (0.7-4.9); Basophils % 0.7 % (0-1.3); Hematocrit 35.2 % (39.6-49.0); Lymphocytes % 29.8 % (15.3-44.8); MPV 9.5 fL (7.6-11.3); RBC Red Blood Cell Count 3.99 M/uL (4.33-5.43)
[2019-09-30 06:29] LABS: Potassium 4.2 mmol/L (3.5-5.1)
[2019-09-30] MEDS ORDERED: HOME MED 1 EA UNK (Lisinopril [Zestril] 2.5 MG) PO SCH (09:00)
[2019-09-30] MEDS: INSULIN -REGULAR HUMAN 50 UNIT/0.5 ML ML SQ SCH ×4 (09:14→21:06)
[2019-09-30] MEDS: lisinopriL 5 MG TAB PO SCH (09:15)
[2019-09-30] MEDS: INSULIN GLARGINE 100 UNITS/ML SQ SCH ×2 (09:15→21:07)
[2019-09-30] MEDS: GABAPENTIN 400 MG CAP PO SCH ×4 (09:17→21:05)
[2019-09-30] MEDS: COLLAGENASE 30 GM OINTMENT TOP SCH (09:17)
[2019-09-30] MEDS: SODIUM HYPOCHLORITE 0.5% 473 ML TOP SCH ×2 (09:17→21:00)
[2019-09-30] MEDS: PANTOPRAZOLE 40MG TABLET PO SCH (09:17)
[2019-09-30] MEDS: VANCOMYCIN 1.75 GM in NA CHLORIDE 0.9% 500 ML IV SCH ×2 (09:18→21:08)
--- NOTE | 2019-09-30 14:57 | P.PN ---
Subjective Date of Service: 09/30/19 Primary Care Provider: Dr. Herrera Chief Complaint: Right inguinal and pubic abscess Subjective: Other (Patient doing better. Pain still slightly abnormal.) Physical Examination - Vital Signs Temperature: 98.6 F Blood Pressure: 142/75 Pulse: 88 Respirations: 19 Pulse Ox (%): 95 - Physical Exam General: Alert, In no apparent distress, Oriented x3, Cooperative HEENT: Atraumatic Neck: Supple Respiratory: Clear to auscultation bilaterally, Normal air movement Cardiovascular: Normal pulses, Regular rate/rhythm Gastrointestinal: Normal bowel sounds, Soft and benign, Non-distended Integumentary: Other (Packed wound to the right inguinal region) - Studies Medications List Reviewed: Yes Assessment & Plan Discharge Plan: LTAC Plan to discharge in: 24 Hours Physician Review Additional Text: Impression: Necrotizing soft tissue infection of the right groin status post I and D Diabetes mellitus type 2, insulin dependent with hyperglycemia Diabetic neuropathy Hypertension Hyperlipidemia GERD Plan: Necrotizing soft tissue infection of the right groin status post I and D: Clindamycin added for better bacteria coverage. Patient remains on vancomycin and unasyn. Continue to monitor closely. Continue with aggressive wound care. Surgery agrees with recommendation of long-term acute care facility placement. Order PICC line. Await recommendations by Infectious Disease. Patient would highly benefit with long-term acute care facility placement including aggressive wound care in long-term IV antibiotic therapy. Will transfer to long-term acute care facility once approved. Diabetes mellitus type 2, insulin dependent with hyperglycemia: Patient now on Lantus 30 units subcu twice daily. Will continue to monitor Accu-Cheks. Will continue to adjust for better diabetic control. A1c pending. Diabetic neuropathy: Will adjust pain medication. Hypertension: Continue with medication. Hyperlipidemia: Continue medication. GERD: Continue medication Time Spent Managing Pts Care (In Minutes): 55
[2019-09-30] MEDS ORDERED: CLINDAMYCIN INJ 600 MG in NA CHLORIDE 0.9% 50 ML IV SCH (17:00)
--- NOTE | 2019-09-30 17:22 | RAD REPORT ---
EXAM DESCRIPTION: RAD - Chest Single View - 09/30/2019 5:05 pm CLINICAL HISTORY: PICC line placement COMPARISON: Chest Single View dated 09/27/2019; Chest Single View dated 12/29/2017; Chest Single View d ated 10/16/2017; Chest Single View dated 10/04/2017 FINDINGS: Portable chest was obtained following placement of a right upper extremity PICC line. The catheter tip projects over the SVC. .
[2019-09-30] MEDS: ENOXAPARIN 40 MG/0.4 ML SQ SCH (17:27)
[2019-09-30] MEDS ORDERED: dexAMETHasone 10 MG/ML VIAL ONE (19:14)
--- NOTE | 2019-09-30 20:11 | CON ---
History Of Present Illness: This is a 54-year-old male coming in to the hospital with pain in right groin area because of necrotizing soft tissue infection and abscess. Patient had an MRI done few day s prior to coming in. Patient on arrival had fever, shakes, and chills. Denies any other problems, feeling much better today. Had debridement done on 7th of this month by surgical team without any co mplication. Patient is getting PICC line in ICU, where patient was seen and examined. Past Medical History: Hypertension, diabetes mellitus, diabetic neuropathy, migraines, TIA on 06/07, hypercholesterolemia, gastroparesis. Family History: Stroke and cancer. Social History: Nonsmoker, nondrinker. Medications: Vancomycin, clindamycin, and Unasyn. Review of Systems: A 10-point review was performed. Physical Examination: General: This is a 54-year-old male, lying in bed, not in any acute cardiopulmonary distress. Vital Signs: Temperature 98.6, pulse 88, respirations 19, blood pressure 142/75. HEENT: Unremarkable. Neck: Supple. Lungs: Basal crackles. Heart: S1, S2. Regular. Abdomen: Soft, nontender. Bowel sounds present. Skin: Right groin wound under dressing. Extremities: No edema. Laboratory Data: WBC 7.8, down from 16.5; hemoglobin 12; platelets 221. Chemistry shows sodium 139, potassium 4.2, chloride 104, bicarb 30, BUN 15, creatinine 0.94, glucose 193. Hemoglobin A1c is 12. 8. Assessment And Plan: A 54-year-old male coming in with right groin abscess and necrotizing soft tiss ue infection with uncontrolled diabetes mellitus with a hemoglobin A1c of 12.6. Patient with diabeti c neuropathy. No other complications. Patient is currently on vancomycin, Unasyn and clindamycin wa s started today. We will recommend to stop clindamycin as patient is already being covered with vanc omycin and Unasyn and patient is responding well. We will follow the patient closely. Thank you Dr. Wright for consult. Total duration of treatment, 2 weeks. Patient can be switched to oral antibiotic if no MRSA with Augmentin. Continue monitoring for hyperglycemia as patient's sugars were quite high prior to admission and hemoglobin A1c of 12.6. Continue wound care and supportive c are. Continue IV antibiotic for now and wound care. We will follow patient closely. NF/MODL Voice ID: [id number] Report ID: [id number]
[2019-09-30] MEDS: HYDROCODONE/APAP 10/325 TAB PO PRN (21:04)
[2019-09-30] MEDS: ATORVASTATIN 10 MG TAB PO SCH (21:05)
[2019-09-30] MEDS: ZOLPIDEM TARTRATE 5 MG TABLET PO PRN (21:05)
[2019-10-01] MEDS: MORPHINE 4 MG/ML SYR IV PRN ×6 (00:06→23:48)
[2019-10-01] MEDS: AMPICILLIN/SULBACT 3 GM in NA CHLORIDE 0.9% 100 ML IVPB SCH ×4 (00:25→18:01)
[2019-10-01] MEDS: HYDROCODONE/APAP 10/325 TAB PO PRN ×3 (04:10→21:04)
[2019-10-01 06:18] LABS: Absolute Lymphocytes (CBC) 2.4 K/uL (0.7-4.9); Basophils % 1.2 % (0-1.3); Hematocrit 37.8 % (39.6-49.0); Lymphocytes % 28.1 % (15.3-44.8); MPV 9.1 fL (7.6-11.3); RBC Red Blood Cell Count 4.28 M/uL (4.33-5.43)
[2019-10-01 07:05] LABS: BUN Blood Urea Nitrogen 10 mg/dL (7-18); Bicarbonate 30 mmol/L (21-32); Glucose Level 139 mg/dL (74-106); Magnesium 1.8 mg/dL (1.8-2.4); Potassium 4.2 mmol/L (3.5-5.1); Sodium Level 140 mmol/L (136-145)
[2019-10-01] MEDS: lisinopriL 5 MG TAB PO SCH (10:01)
[2019-10-01] MEDS: GABAPENTIN 400 MG CAP PO SCH ×4 (10:01→21:04)
[2019-10-01] MEDS: PANTOPRAZOLE 40MG TABLET PO SCH (10:03)
[2019-10-01] MEDS: INSULIN -REGULAR HUMAN 50 UNIT/0.5 ML ML SQ SCH ×4 (10:04→21:05)
[2019-10-01] MEDS: INSULIN GLARGINE 100 UNITS/ML SQ SCH ×2 (10:05→21:06)
[2019-10-01] MEDS: COLLAGENASE 30 GM OINTMENT TOP SCH (10:11)
[2019-10-01] MEDS: SODIUM HYPOCHLORITE 0.5% 473 ML TOP SCH ×2 (10:11→21:10)
[2019-10-01] MEDS: VANCOMYCIN 1.75 GM in NA CHLORIDE 0.9% 500 ML IV SCH (10:12)
[2019-10-01 11:46] VITALS: O2SAT 95
--- NOTE | 2019-10-01 13:04 | P.PN ---
Subjective Date of Service: 10/01/19 Primary Care Provider: Dr. Herrera Chief Complaint: Right inguinal and pubic abscess Subjective: Doing well (Pain better controlled.) Physical Examination - Vital Signs Temperature: 98 F Blood Pressure: 157/83 Pulse: 93 Respirations: 18 Pulse Ox (%): 96 - Physical Exam General: Alert, In no apparent distress, Cooperative HEENT: Atraumatic Neck: Supple Respiratory: Clear to auscultation bilaterally, Normal air movement Cardiovascular: Normal pulses, Regular rate/rhythm Gastrointestinal: Normal bowel sounds, Soft and benign, Non-distended Integumentary: Other (Packing to the right inguinal region.) Neurological: Normal speech, Normal strength at 5/5 x4 extr, Normal tone, Normal affect - Studies Medications List Reviewed: Yes Assessment & Plan Discharge Plan: Other ([facility] facility) Plan to discharge in: 24 Hours Physician Review Additional Text: Impression: Necrotizing soft tissue infection of the right groin status post I and D Diabetes mellitus type 2, insulin dependent with hyperglycemia Diabetic neuropathy Hypertension Hyperlipidemia GERD Plan: Necrotizing soft tissue infection of the right groin status post I and D: Case reviewed with pharmacy, surgery and infectious disease. Clindamycin was discontinued. Will continue with vancomycin and unasyn. Infectious Disease is recommending aggressive wound care and IV antibiotic therapy for 2 weeks. Patient does not want a go to a long-term acute care facility. Patient prefers to be here locally. Will arrange for skilled placement to continue wound care and IV antibiotic therapy-vancomycin and Unasyn. Continue with pain medication. Continue physical therapy. PICC line in place. I will turn the service over to the hospitalist team tomorrow. I will go over the plan of care. Anticipate discharge as early as today if skilled placement/IV antibiotic therapy/Wound Care can be arranged. Diabetes mellitus type 2, insulin dependent with hyperglycemia: Will increase Lantus to 32 units subcu twice daily for better diabetic control. Will continue monitor and adjust appropriately. A1c 12.8. Diabetic neuropathy: Pain medication stable this time. Hypertension: Will increase lisinopril for better blood pressure control. Will continue to monitor and adjust. Hyperlipidemia: Continue medication. GERD: Continue medication Time Spent Managing Pts Care (In Minutes): 55
[2019-10-01] MEDS: ENOXAPARIN 40 MG/0.4 ML SQ SCH (18:01)
--- NOTE | 2019-10-01 18:17 | PN ---
Subjective: Patient lying in bed, having significant amount of pain. Feels like morphine is helping him, but [place] has not helped him much. Denies any other problems. No fevers. Objective: Vital Signs: Temperature 98, pulse 93, respirations 18, blood pressure 157/83. Lungs: Clear to auscultation. Heart: S1 and S2 are regular. Abdomen: Soft, nontender. Bowel sounds pres ent. Extremity: No edema. Skin: Right groin wound seen with good granulation tissue and some biob urden. No necrotic tissue noted at this time. Laboratory Data: Shows WBC 8.6, hemoglobin 12.7, platelets 251. Chemistry shows sodium 140, potassi um 4.2, chloride 105, bicarb 30, BUN 10, creatinine 0.8, glucose 139. Micro Data: Blood cultures negative. Wound cultures are pending. Assessment And Plan: Right groin abscess, status post incision and drainage. The patient is doing b kartik. Continue to have pain. We will recommend to continue current medication including Unasyn and vancomycin. Apply Medihoney with alginate if possible. Otherwise, continue Dakin and Santyl. We w ill follow the patient closely. NF/MODL Voice ID: [id number] Report ID: [id number]
[2019-10-01] MEDS: ATORVASTATIN 10 MG TAB PO SCH (21:05)
[2019-10-02] MEDS: AMPICILLIN/SULBACT 3 GM in NA CHLORIDE 0.9% 100 ML IVPB SCH ×3 (00:12→11:00)
[2019-10-02] MEDS: MORPHINE 4 MG/ML SYR IV PRN ×2 (05:40→13:35)
[2019-10-02 06:14] LABS: Magnesium 1.9 mg/dL (1.8-2.4); Potassium 4.4 mmol/L (3.5-5.1)
[2019-10-02 08:04] LABS: Absolute Lymphocytes (CBC) 2.3 K/uL (0.7-4.9); Basophils % 0.5 % (0-1.3); Hematocrit 36.7 % (39.6-49.0); MPV 9.3 fL (7.6-11.3); RBC Red Blood Cell Count 4.17 M/uL (4.33-5.43)
[2019-10-02] MEDS: HYDROCODONE/APAP 10/325 TAB PO PRN (08:34)
[2019-10-02] MEDS: PANTOPRAZOLE 40MG TABLET PO SCH (08:36)
[2019-10-02] MEDS: INSULIN -REGULAR HUMAN 50 UNIT/0.5 ML ML SQ SCH ×2 (08:36→12:04)
[2019-10-02] MEDS: INSULIN GLARGINE 100 UNITS/ML SQ SCH (08:37)
[2019-10-02] MEDS: SODIUM HYPOCHLORITE 0.5% 473 ML TOP SCH (08:38)
[2019-10-02] MEDS: GABAPENTIN 400 MG CAP PO SCH ×2 (08:38→12:04)
[2019-10-02] MEDS: COLLAGENASE 30 GM OINTMENT TOP SCH (08:38)
[2019-10-02] MEDS ORDERED: lisinopriL 5 MG TAB PO SCH (09:00)
[2019-10-02] MEDS ORDERED: HYDROMORPHONE HCL 1 MG/ML INJ IV ONE (09:43)
[2019-10-02] MEDS ORDERED: HYDRALAZINE HCL 20 MG/ML VIAL IV PRN (12:15)
[2019-10-02] MEDS: ONDANSETRON 4 MG/2 ML VIAL IV PRN (12:26)
[2019-10-02 13:30] VITALS: TEMP 97.7
[2019-10-02 13:42] VITALS: BP 133/71
--- NOTE | 2019-10-02 15:54 | P.DS ---
Admission Date: 09/27/19 Discharge Date: 10/03/19 Primary Care Provider: Dr. Herrera Disposition: TRANSFER TO SNF - MEDICAL Discharge Condition: FAIR Reason for Admission: Right inguinal and pubic abscess Consultations: General Surgeon Infectious disease Procedures: Debridement of R groin abscess Hospital Course: Impression: Necrotizing soft tissue infection of the right groin status post I and D Diabetes mellitus type 2, insulin dependent with hyperglycemia Diabetic neuropathy Hypertension Hyperlipidemia GERD Mr. Flaherty is 54-year-old male with history of diabetes mellitus complicated by diabetic neuropathy who presented to the hospital with complaints of pain in the right groin area, fever, shakes and chills. Initial evaluation with CT pelvis showed a 3 x 2 cm fluid collection in the right pubis feet appear to be an early abscess. Patient was evaluated by surgeon and underwent debridement of the right pubic abscess and necrotizing soft tissue infection. Blood and wound culture has no growth ths far. Patient was evaluated by Infectious Disease specialist, recommended IV antibiotics at LTAC facility. Patient has declined LTAC and prefers to utilize a [facility] facility for IV infusion due to proximity to his home. Patient has a history of uncontrolled diabetes mellitus with neuropathy. Medications have been adjusted and continued. He remained hemodynamically stable for discharge to SNF for further care. Vital Signs/Physical Exam: Temp Pulse Resp BP Pulse Ox 97.7 F 80 18 133/71 97 10/02/19 12:00 10/02/19 13:42 10/02/19 14:05 10/02/19 13:42 10/02/19 14:05 General: Alert, In no apparent distress, Oriented x3 HEENT: Atraumatic, Normocephalic, PERRLA Respiratory: Clear to auscultation bilaterally, Normal air movement Cardiovascular: No edema, Normal pulses Gastrointestinal: Normal bowel sounds, Soft and benign, Non-distended Integumentary: Skin breakdown, Tenderness/swelling Neurological: Normal gait, Normal speech Laboratory Data at Discharge: WBC 7.6 K/uL (4.3-10.9) 10/02/19 07:15 Hgb 12.8 g/dL (13.6-17.9) L 10/02/19 07:15 Hct 36.7 % (39.6-49.0) L 10/02/19 07:15 Plt Count 259 K/uL (152-406) 10/02/19 07:15 PT 11.9 SECONDS (9.5-12.5) 09/28/19 06:19 INR 1.01 09/28/19 06:19 APTT 27.6 SECONDS (24.3-36.9) 09/28/19 06:19 Sodium 140 mmol/L (136-145) 10/02/19 05:45 Potassium 4.4 mmol/L (3.5-5.1) 10/02/19 05:45 BUN 9 mg/dL (7-18) 10/02/19 05:45 Creatinine 0.93 mg/dL (0.55-1.3) 10/02/19 05:45 Glucose 192 mg/dL (74-106) H 10/02/19 05:45 Magnesium 1.9 mg/dL (1.8-2.4) 10/02/19 05:45 Total Bilirubin 1.3 mg/dL (0.2-1.0) H 09/27/19 19:37 AST 10 U/L (15-37) L 09/27/19 19:37 ALT 19 U/L (12-78) 09/27/19 19:37 Alkaline Phosphatase 130 U/L (45-117) H 09/27/19 19:37 Lipase 272 U/L (73-393) 09/27/19 19:37 Home Medications: Gabapentin [Neurontin] 800 mg PO QID 12/27/16 Pravastatin Sodium [Pravachol] 20 mg PO DAILY 12/27/16 Zolpidem Tartrate [Ambien*] 5 mg PO BEDTIME PRN 12/29/17 Pantoprazole [Protonix Tab*] 40 mg PO DAILY 12/30/17 Promethazine HCl 25 mg PO Q4HP PRN 12/30/17 Codeine/APAP [Tylenol W/Codeine #3 tab] 1 tab PO Q6HP PRN #120 tab 10/02/19 Insulin -Regular Human [Novolin -R*] See Protocol SQ ACHS ml 10/02/19 Insulin Glargine Human [Lantus*] 32 units SQ BID ml 10/02/19 Ketorolac [Toradol*] 15 mg IV Q6H PRN vial 10/02/19 traMADol HCL [Ultram*] 50 mg PO TID PRN #60 tab 10/02/19 Metformin HCl [Glucophage*] 500 mg PO BIDWM #60 tab 10/03/19 New Medications: Codeine/APAP [Tylenol W/Codeine #3 tab] 1 tab PO Q6HP PRN #120 tab PRN Reason: Pain Metformin HCl [Glucophage*] 500 mg PO BIDWM #60 tab traMADol HCL [Ultram*] 50 mg PO TID PRN #60 tab PRN Reason: Pain Scale 2-4 (Mild) Patient Discharge Instructions: FOllow up with pcp and ID within 1 week Diet: ADA Activity: Ad francisco j Followup: Mauro Herrera MD [Primary Care Provider] - (call to make an appointment. ) John Goodson MD [ACTIVE - CAN ADMIT] - (call to make an appointment. )
== END 2019-10-02 14:33 | DRG 603 ==
LOC: ER 18:52 → ERHOLD 20:52 → 2ND 22:07
PROVIDERS: ADMIT Hospitalist; ATTEND Hospitalist
PROC: 0HBAXZZ Excision of Inguinal Skin, External Approach (ICD-10-PCS; principal; 2019-09-28 12:00)
PROC: 02HV33Z Insertion of Infusion Device into Superior Vena Cava, Percutaneous Approach (ICD-10-PCS; 2019-09-30)
DX: L02.214 Cutaneous abscess of groin (principal); E11.65 Type 2 diabetes mellitus with hyperglycemia; E11.40 Type 2 diabetes mellitus with diabetic neuropathy, unspecified; I10 Essential (primary) hypertension; E78.5 Hyperlipidemia, unspecified; K21.9 Gastro-esophageal reflux disease without esophagitis; Z86.73 Personal history of transient ischemic attack (TIA), and cerebral infarction without residual deficits; Z86.14 Personal history of Methicillin resistant Staphylococcus aureus infection
CPT/HCPCS: 36415; 71045; 72193; 80048; 80076; 80202; 82550; 82553; 82947; 83036; 83605; 83690; 83735; 84145; 84484; 85025; 85610; 85730; 87040; 87070; 87075; 87205; 88302; 88304; 93005; 96365; 96367; 96372; 96375; 97112; 97116; 97161; 97530; 99285; J0295; J0360; J1100; J1170; J1650; J1815; J2250; J2405; J2543; J2704; J3010; J3590; J7030; J7040; Q9967

== ENCOUNTER 2019-11-22 02:48 | Inpatient (IN) | payer OTHER ==
[2019-11-22] MEDS ORDERED: NA CHLORIDE 0.9% 1,000 ML ONE ×4 (03:59→15:48)
[2019-11-22] MEDS ORDERED: HYDROMORPHONE HCL 1 MG/ML INJ ONE ×2 (03:59→05:01)
[2019-11-22] MEDS ORDERED: ONDANSETRON 4 MG/2 ML VIAL ONE ×2 (03:59→10:01)
[2019-11-22 04:45] LABS: Absolute Lymphocytes (CBC) 2.6 K/uL (0.7-4.9); Basophils % 1.4 % (0-1.3); Hematocrit 44.4 % (39.6-49.0); Lymphocytes % 33.4 % (15.3-44.8); MPV 9.9 fL (7.6-11.3); RBC Red Blood Cell Count 5.06 M/uL (4.33-5.43)
[2019-11-22 04:46] LABS: Protime INR 0.9
[2019-11-22 04:59] LABS: ALT/SGPT 18 U/L (12-78); AST/SGOT 12 U/L (15-37); Alkaline Phosphatase 123 U/L (45-117); BUN Blood Urea Nitrogen 28 mg/dL (7-18); Bicarbonate 27 mmol/L (21-32); Bilirubin Direct < 0.1 mg/dL (0-0.2); Bilirubin Total 0.3 mg/dL (0.2-1.0); Lipase 84 U/L (73-393); Magnesium 1.9 mg/dL (1.8-2.4); NT PRO-BNP 81 pg/mL (<125); Potassium 4.4 mmol/L (3.5-5.1); Protein, Total 7.3 g/dL (6.4-8.2); Sodium Level 132 mmol/L (136-145); Troponin (Emerg Dept Use Only) < 0.02 ng/mL (0.0-0.045)
[2019-11-22 05:00] LABS: Glucose Level 435 mg/dL (74-106)
[2019-11-22] MEDS ORDERED: INSULIN -REGULAR HUMAN 50 UNIT/0.5 ML ML ONE (05:27)
--- NOTE | 2019-11-22 06:59 | ER ---
Nurse's Notes [facility] Name: Jordan Flahetry Age: 54 yrs Sex: Male : 1965 Arrival Date: 11/22/2019 Time: 02:50 Bed 25 Private MD: Diagnosis: Abdominal tenderness;Type 2 diabetes mellitus;Cellulitis of groin;Diverticulosis of intestine, part unspecified, without perforation or abscess without bleeding;Unspecified kidney failure Presentation: 11/22 02:58 Presenting complaint: Patient states: he had an abscess drained from his right groin bb recently and the pain has come back x 1 week and is getting worse radiating up into his belly denies vomiting or diarrhea. Transition of care: patient was not received from another setting of care. Onset of symptoms was November 14, 2019. Risk Assessment: Do you want to hurt yourself or someone else? Patient reports no desire to harm self or others. Initial Sepsis Screen: Does the patient meet any 2 criteria? No. Patient's initial sepsis screen is negative. Does the patient have a suspected source of infection? No. Patient's initial sepsis screen is negative. Care prior to arrival: None. 02:58 Method Of Arrival: Ambulatory bb 02:58 Acuity: MALACHI 3 bb Historical: - Allergies: 03:01 No Known Allergies; bb - Home Meds: 03:01 amitriptyline 75 mg Oral tab 1 tab nightly [Active]; aspirin 325 mg Oral tab 1 tab once bb daily [Active]; atenolol 25 mg Oral tab 1 tab once daily [Active]; duloxetine Oral [Active]; glyburide 2.5 mg Oral tab 2 tabs twice a day [Active]; lisinopril 2.5 mg Oral tab 1 tab once daily [Active]; Novolin 70/30 Innolet Sub-Q 35 unit twice a day [Active]; pravastatin 20 mg Oral tab 1 tab once daily [Active]; Protonix Oral [Active]; topiramate 50 mg Oral tab as needed [Active]; Xanax 0.5 mg Oral tab 1 tab daily [Active]; - PMHx: 03:01 Diabetes - IDDM; Gastroparesis; Hyperlipidemia; Hypertension; TIA; bb - PSHx: 03:01 staff removed from back of neck, somach, and over the eye; bb - Immunization history:: Adult Immunizations up to date, Pneumococcal vaccine is up to date, Flu vaccine is up to date. - Coronavirus screen:: The patient has NOT traveled to [place], [place], or [place] in the past 14 days. Proceed with normal triage process as indicated. - Social history:: Smoking status: Patient denies any tobacco usage or history of. - Family history:: not pertinent. - Ebola Screening: : No symptoms or risks identified at this time. Screenin:00 Abuse screen: Denies threats or abuse. Denies injuries from another. Nutritional aa1 screening: No deficits noted. Tuberculosis screening: No symptoms or risk factors identified. Fall Risk None identified. Assessment: 03:00 General: Appears in no apparent distress. uncomfortable, Behavior is cooperative, aa1 appropriate for age, restless. Pain: Complains of pain in right femoral area Pain currently is 10 out of 10 on a pain scale. Pain began 1 week Is continuous. Neuro: Level of Consciousness is awake, alert, obeys commands, Oriented to person, place, time, situation, Moves all extremities. Full function. Respiratory: Airway is patent Respiratory effort is even, unlabored, Respiratory pattern is regular, symmetrical. GI: Abdomen is non-distended, Abd is soft X 4 quads Abdomen is tender to palpation in right lower quadrant Patient currently denies diarrhea, vomiting. : Reports pain in right lower quadrant(s) scrotum, groin. EENT: No signs and/or symptoms were reported regarding the EENT system. Derm: Skin is intact, is healthy with good turgor, Skin is pink, warm \T\ dry. Musculoskeletal: Circulation, motion, and sensation intact. Capillary refill < 3 seconds. 04:10 Reassessment: Patient appears in no apparent distress at this time. Patient and/or aa1 family updated on plan of care and expected duration. Pain level reassessed. Patient is alert, oriented x 3, equal unlabored respirations, skin warm/dry/pink. Awaiting lab results. 05:00 Reassessment: Patient appears in no apparent distress at this time. Patient and/or aa1 family updated on plan of care and expected duration. Pain level reassessed. Patient is alert, oriented x 3, equal unlabored respirations, skin warm/dry/pink. Pt requesting more pain medication; MD notified. 05:59 Reassessment: Patient appears in no apparent distress at this time. Patient and/or aa1 family updated on plan of care and expected duration. Pain level reassessed. Patient is alert, oriented x 3, equal unlabored respirations, skin warm/dry/pink. Awaiting CT results. 07:29 Reassessment: Patient and/or family updated on plan of care and expected duration. Pain tw2 level reassessed. Patient is alert, oriented x 3, equal unlabored respirations, skin warm/dry/pink. Patient states symptoms have not improved. Vital Signs: 03:01 BP 139 / 103; Pulse 99; Resp 18 S; Temp 97.7(O); Pulse Ox 98% on R/A; Weight 99.79 kg bb (R); Height 6 ft. 0 in. (182.88 cm) (R); Pain 10/10; 04:10 BP 113 / 83; Pulse 78; Resp 20; Pulse Ox 95% on R/A; aa1 05:00 BP 111 / 67; Pulse 74; Resp 22; Pulse Ox 97% on R/A; Pain 10/10; aa1 05:59 BP 118 / 75; Pulse 76; Resp 20; Pulse Ox 98% on R/A; Pain 8/10; aa1 07:29 BP 101 / 69; Pulse 75; Resp 17; Pulse Ox 96% on R/A; Pain 9/10; tw2 03:01 Body Mass Index 29.84 (99.79 kg, 182.88 cm) ED Course: 02:50 Patient arrived in ED. ds1 03:00 Triage completed. bb 03:00 Patient has correct armband on for positive identification. Bed in low position. Call aa1 light in reach. Pulse ox on. NIBP on. 03:01 Arm band placed on Patient placed in an exam room, on a stretcher, on pulse oximetry. bb Family accompanied patient. 03:12 Agatha Aguilera, TIFFANIE is Primary Nurse. aa1 03:23 Mikel Padilla MD is Attending Physician. [facility] 04:10 Initial lab(s) drawn, by or, sent to lab. Inserted saline lock: 20 gauge in left aa1 antecubital area, using aseptic technique. Blood collected. 04:12 EKG done, by ED staff, reviewed by Mikel Padilla MD. aa1 04:35 Radiology exam delayed due to lab results not completed at this time. (BUN/Creatinine). kw1 05:00 Notified ED physician of a critical lab result(s). Glucose 435 Dr Padilla notified. bb 05:41 Abdomen In Process Unspecified. EDMS 05:46 Chest Single View In Process Unspecified. EDMS 06:57 Georges Luciano MD is Hospitalizing Provider. amanda 07:05 Primary Nurse role handed off by Agatha Aguilera RN tw2 07:05 Isidra Powell RN is Primary Nurse. tw2 10:05 No provider procedures requiring assistance completed. Patient admitted, IV remains in tw2 place. Administered Medications: 04:10 Drug: NS 0.9% 1000 ml Route: IV; Rate: 1 bolus; Site: left antecubital; aa1 05:57 Follow up: IV Status: Completed infusion; IV Intake: 1000ml aa1 04:10 Drug: Zofran 4 mg Route: IVP; Site: left antecubital; aa1 05:10 Follow up: Response: No adverse reaction aa1 04:12 Drug: Dilaudid 1 mg Route: IVP; Site: left antecubital; aa1 05:10 Follow up: Response: No adverse reaction; Pain is unchanged, physician notified aa1 04:55 Drug: Dilaudid 1 mg Route: IVP; Site: left antecubital; aa1 05:56 Follow up: Response: No adverse reaction; Pain is unchanged, physician notified aa1 05:50 Drug: NS 0.9% 1000 ml Route: IV; Rate: 1 bolus; Site: left antecubital; aa1 05:55 Drug: Insulin Regular Human 10 units {Co-Signature: [email or web address] (Bassam Peters RN).} Route: aa1 IVP; Site: left antecubital; 05:55 Drug: Insulin Regular Human 10 units {Co-Signature: [email or web address] (Bassam Peters RN).} Route: aa1 Sub-Q; Site: left upper arm; 06:56 CANCELLED (Duplicate Order): Dilaudid 1 mg IVP once; RASS on ADMIN: Combtv4, Very amanda Agttd3, Agttd2, Rstlss1, AlertClm0, Drwsy-1, Lt Sdtn-2, Mod Sdtn-3, Dp Sdtn-4, UnArsble-5 07:48 Drug: Flagyl 500 mg Volume: 100 ml; Route: IVPB; Rate: 200 ml/hr; Infused Over: 30 jl7 mins; Site: left antecubital; 08:15 Follow up: Response: No adverse reaction; IV Status: Completed infusion tw2 07:48 Drug: levofloxacin 500 mg Volume: 100 ml; Route: IVPB; Infused Over: 60 mins; Site: jl7 left antecubital; 08:55 Follow up: Response: No adverse reaction; IV Status: Completed infusion tw2 Intake: 05:57 IV: 1000ml; Total: 1000ml. aa1 Outcome: 06:59 Decision to Hospitalize by Provider. amanda 10:05 Admitted to ER Hold. Please see [facility] for further documentation. tw2 10:05 Condition: stable 10:05 Instructed on the need for admit. 16:45 Patient left the ED. ss Signatures: Dispatcher [employer] EDAgatha Rodas RN RN aa1 Mikel Padilla MD MD cha Sanford, Demi ds1 Denice Pacheco RN RN bb Ana Hernandez RN RN ss Isidra Powell RN RN tw2 Hiwot Rodriguez RN RN jl7 Amber Beltre kw1 Bassam Peters RN [email or web address]
--- NOTE | 2019-11-22 07:00 | EDPHYS ---
Physician Documentation [facility] Name: Jordan Flaherty Age: 54 yrs Sex: Male : 1965 Arrival Date: 11/22/2019 Time: 02:50 Bed 25 Private MD: JOSIE Physician Mikel Padilla HPI: 11/22 03:47 This 54 yrs old Male presents to ER via Ambulatory with complaints of amanda Abdominal Pain. 03:47 The patient presents with abdominal pain in the lower abdomen, abdominal distention in amanda the upper abdomen, in the lower abdomen. Onset: The symptoms/episode began/occurred just prior to arrival. The symptoms do not radiate. Associated signs and symptoms: none. The symptoms are described as crampy. Modifying factors: The symptoms are alleviated by nothing, the symptoms are aggravated by movement, pressure, walking. Severity of pain: At its worst the pain was moderate in the emergency department the pain is unchanged. The patient has not experienced similar symptoms in the past. Historical: - Allergies: 03:01 No Known Allergies; bb - Home Meds: 03:01 amitriptyline 75 mg Oral tab 1 tab nightly [Active]; aspirin 325 mg Oral tab 1 tab once bb daily [Active]; atenolol 25 mg Oral tab 1 tab once daily [Active]; duloxetine Oral [Active]; glyburide 2.5 mg Oral tab 2 tabs twice a day [Active]; lisinopril 2.5 mg Oral tab 1 tab once daily [Active]; Novolin 70/30 Innolet Sub-Q 35 unit twice a day [Active]; pravastatin 20 mg Oral tab 1 tab once daily [Active]; Protonix Oral [Active]; topiramate 50 mg Oral tab as needed [Active]; Xanax 0.5 mg Oral tab 1 tab daily [Active]; - PMHx: 03:01 Diabetes - IDDM; Gastroparesis; Hyperlipidemia; Hypertension; TIA; bb - PSHx: 03:01 staff removed from back of neck, somach, and over the eye; bb - Immunization history:: Adult Immunizations up to date, Pneumococcal vaccine is up to date, Flu vaccine is up to date. - Coronavirus screen:: The patient has NOT traveled to [place], [place], or [place] in the past 14 days. Proceed with normal triage process as indicated. - Social history:: Smoking status: Patient denies any tobacco usage or history of. - Family history:: not pertinent. - Ebola Screening: : No symptoms or risks identified at this time. ROS: 03:47 Constitutional: Negative for fever, chills, and weight loss, Eyes: Negative for injury, amanda pain, redness, and discharge, ENT: Negative for injury, pain, and discharge, Neck: Negative for injury, pain, and swelling, Cardiovascular: Negative for chest pain, palpitations, and edema, Respiratory: Negative for shortness of breath, cough, wheezing, and pleuritic chest pain, Back: Negative for injury and pain, : Negative for injury, bleeding, discharge, and swelling, MS/Extremity: Negative for injury and deformity, Skin: Negative for injury, rash, and discoloration, Neuro: Negative for headache, weakness, numbness, tingling, and seizure, Psych: Negative for depression, anxiety, suicide ideation, homicidal ideation, and hallucinations, Allergy/Immunology: Negative for hives, rash, and allergies, Endocrine: Negative for neck swelling, polydipsia, polyuria, polyphagia, and marked weight changes, Hematologic/Lymphatic: Negative for swollen nodes, abnormal bleeding, and unusual bruising. 03:47 Abdomen/GI: Positive for abdominal pain, abdominal cramps, of the right lower quadrant and left lower quadrant. Exam: 03:47 Constitutional: This is a well developed, well nourished patient who is awake, alert, amanda and in no acute distress. Head/Face: Normocephalic, atraumatic. Eyes: Pupils equal round and reactive to light, extra-ocular motions intact. Lids and lashes normal. Conjunctiva and sclera are non-icteric and not injected. Cornea within normal limits. Periorbital areas with no swelling, redness, or edema. ENT: Nares patent. No nasal discharge, no septal abnormalities noted. Tympanic membranes are normal and external auditory canals are clear. Oropharynx with no redness, swelling, or masses, exudates, or evidence of obstruction, uvula midline. Mucous membranes moist. Neck: Trachea midline, no thyromegaly or masses palpated, and no cervical lymphadenopathy. Supple, full range of motion without nuchal rigidity, or vertebral point tenderness. No Meningismus. Chest/axilla: Normal chest wall appearance and motion. Nontender with no deformity. No lesions are appreciated. Cardiovascular: Regular rate and rhythm with a normal S1 and S2. No gallops, murmurs, or rubs. Normal PMI, no JVD. No pulse deficits. Respiratory: Lungs have equal breath sounds bilaterally, clear to auscultation and percussion. No rales, rhonchi or wheezes noted. No increased work of breathing, no retractions or nasal flaring. Back: No spinal tenderness. No costovertebral tenderness. Full range of motion. Male : Normal genitalia with no discharge or lesions. Skin: Warm, dry with normal turgor. Normal color with no rashes, no lesions, and no evidence of cellulitis. MS/ Extremity: Pulses equal, no cyanosis. Neurovascular intact. Full, normal range of motion. Neuro: Awake and alert, GCS 15, oriented to person, place, time, and situation. Cranial nerves II-XII grossly intact. Motor strength 5/5 in all extremities. Sensory grossly intact. Cerebellar exam normal. Normal gait. Psych: Awake, alert, with orientation to person, place and time. Behavior, mood, and affect are within normal limits. 03:47 Abdomen/GI: Inspection: distension, Bowel sounds: active, Palpation: moderate abdominal tenderness, in the umbilical area, right lower quadrant and left lower quadrant, Liver: no appreciated palpable abnormalities, Hernia: not appreciated. Vital Signs: 03:01 BP 139 / 103; Pulse 99; Resp 18 S; Temp 97.7(O); Pulse Ox 98% on R/A; Weight 99.79 kg bb (R); Height 6 ft. 0 in. (182.88 cm) (R); Pain 10/10; 04:10 BP 113 / 83; Pulse 78; Resp 20; Pulse Ox 95% on R/A; aa1 05:00 BP 111 / 67; Pulse 74; Resp 22; Pulse Ox 97% on R/A; Pain 10/10; aa1 05:59 BP 118 / 75; Pulse 76; Resp 20; Pulse Ox 98% on R/A; Pain 8/10; aa1 07:29 BP 101 / 69; Pulse 75; Resp 17; Pulse Ox 96% on R/A; Pain 9/10; tw2 03:01 Body Mass Index 29.84 (99.79 kg, 182.88 cm) bb MDM: 03:23 Patient medically screened. [facility] 03:49 Data reviewed: vital signs, nurses notes, lab test result(s), EKG, radiologic studies, [facility] CT scan, plain films. 11/22 03:46 Order name: Basic Metabolic Panel [facility] 11/22 03:46 Order name: CBC with Diff [facility] 11/22 03:46 Order name: LFT's [facility] 11/22 03:46 Order name: Magnesium [facility] 11/22 03:46 Order name: NT PRO-BNP [facility] 11/22 03:46 Order name: PT-INR [facility] 11/22 03:46 Order name: Troponin (emerg Dept Use Only) [facility] 11/22 03:46 Order name: Lipase [facility] 11/22 03:46 Order name: Urine Culture [facility] 11/22 03:47 Order name: Procalcitonin [facility] 11/22 04:42 Order name: Basic Metabolic Panel; Complete Time: 05:11 [facility] 11/22 04:42 Order name: Liver (Hepatic) Function; Complete Time: 05:11 [facility] 11/22 04:42 Order name: Troponin (Emerg Dept Use Only); Complete Time: 05:11 [facility] 11/22 04:42 Order name: NT PRO-BNP; Complete Time: 05:11 [facility] 11/22 04:42 Order name: Magnesium; Complete Time: 05:11 [facility] 11/22 04:43 Order name: Lipase; Complete Time: 05:11 [facility] 11/22 04:43 Order name: Procalcitonin; Complete Time: 05:34 [facility] 11/22 04:43 Order name: CBC with Automated Diff; Complete Time: 05:00 [facility] 11/22 04:43 Order name: Protime (+INR); Complete Time: 05:00 [facility] 11/22 07:31 Order name: CBC with Automated Diff [facility] 11/22 07:31 Order name: CBC with Automated Diff [facility] 11/22 07:31 Order name: Comprehensive Metabolic Panel [facility] 11/22 07:31 Order name: Comprehensive Metabolic Panel [facility] 11/22 07:31 Order name: Creatine Phosphokinase [facility] 11/22 07:31 Order name: Creatine Phosphokinase [facility] 11/22 07:31 Order name: Creatine Phosphokinase [facility] 11/22 07:31 Order name: Creatine Phosphokinase [facility] 11/22 08:08 Order name: Glucose, Ancillary Testing [facility] 11/22 03:46 Order name: EKG; Complete Time: 04:43 [facility] 11/22 03:46 Order name: Cardiac monitoring; Complete Time: 04:26 [facility] 11/22 03:46 Order name: EKG - Nurse/Tech; Complete Time: 04:26 [facility] 11/22 03:46 Order name: IV Saline Lock; Complete Time: 04:27 [facility] 11/22 03:46 Order name: Labs collected and sent; Complete Time: 04:27 [facility] 11/22 03:46 Order name: O2 Per Protocol; Complete Time: 03:50 [facility] 11/22 03:46 Order name: O2 Sat Monitoring; Complete Time: 03:50 [facility] 11/22 04:42 Order name: Chest Single View [facility] 11/22 04:42 Order name: Abdomen [facility] 11/22 07:31 Order name: CONS Pharmacy Consult [facility] 11/22 07:31 Order name: CONS Physician Consult [facility] 11/22 07:31 Order name: NPO [facility] 11/22 07:31 Order name: Pelvis Complete [facility] 11/22 07:33 Order name: CONS Pharmacy Consult [facility] Administered Medications: 04:10 Drug: NS 0.9% 1000 ml Route: IV; Rate: 1 bolus; Site: left antecubital; aa1 05:57 Follow up: IV Status: Completed infusion; IV Intake: 1000ml aa1 04:10 Drug: Zofran 4 mg Route: IVP; Site: left antecubital; aa1 05:10 Follow up: Response: No adverse reaction aa1 04:12 Drug: Dilaudid 1 mg Route: IVP; Site: left antecubital; aa1 05:10 Follow up: Response: No adverse reaction; Pain is unchanged, physician notified aa1 04:55 Drug: Dilaudid 1 mg Route: IVP; Site: left antecubital; aa1 05:56 Follow up: Response: No adverse reaction; Pain is unchanged, physician notified aa1 05:50 Drug: NS 0.9% 1000 ml Route: IV; Rate: 1 bolus; Site: left antecubital; aa1 05:55 Drug: Insulin Regular Human 10 units {Co-Signature: [email or web address] (Bassam Peters RN).} Route: aa1 IVP; Site: left antecubital; 05:55 Drug: Insulin Regular Human 10 units {Co-Signature: [email or web address] (Bassam Peters RN).} Route: aa1 Sub-Q; Site: left upper arm; 06:56 CANCELLED (Duplicate Order): Dilaudid 1 mg IVP once; RASS on ADMIN: Combtv4, Very amanda Agttd3, Agttd2, Rstlss1, AlertClm0, Drwsy-1, Lt Sdtn-2, Mod Sdtn-3, Dp Sdtn-4, UnArsble-5 07:48 Drug: Flagyl 500 mg Volume: 100 ml; Route: IVPB; Rate: 200 ml/hr; Infused Over: 30 jl7 mins; Site: left antecubital; 08:15 Follow up: Response: No adverse reaction; IV Status: Completed infusion tw2 07:48 Drug: levofloxacin 500 mg Volume: 100 ml; Route: IVPB; Infused Over: 60 mins; Site: jl7 left antecubital; 08:55 Follow up: Response: No adverse reaction; IV Status: Completed infusion tw2 Disposition: 11/22/19 06:59 Hospitalization ordered by Georges Luciano for Inpatient Admission. Preliminary diagnosis are Abdominal tenderness, Type 2 diabetes mellitus, Cellulitis of groin, Diverticulosis of intestine, part unspecified, without perforation or abscess without bleeding, Unspecified kidney failure. - Bed requested for Telemetry/MedSurg (Inpatient). - Status is Inpatient Admission. ss - Condition is Fair. - Problem is new. - Symptoms have improved. UTI on Admission? No Signatures: Dispatcher [employer] [facility] Tamiko Johnson RN RN Agatha Aguilera RN RN aa1 Mikel Padilla MD MD cha Ballard, Brenda RN Ana Randhawa RN RN ss Hiwot Rodriguez RN RN jl7 Elisabeth Arora Tara RN tw2 Bassam Peters RN [email or web address] Corrections: (The following items were deleted from the chart) 04:46 04:43 Abdomen Pelvis W Con+CT.RAD.BRZ ordered. EDMS EDMS 05:47 04:43 Chest Single View+RAD.RAD.BRZ ordered. EDMS EDMS 06:56 06:55 Dilaudid 1 mg IVP once; RASS on ADMIN: Combtv4, Very Agttd3, Agttd2, Rstlss1, amanda AlertClm0, Drwsy-1, Lt Sdtn-2, Mod Sdtn-3, Dp Sdtn-4, UnArsble-5 ordered. amanda 07:02 06:59 Hospitalization Ordered by Georges Luciano MD for Inpatient Admission. Preliminary amanda diagnosis is Abdominal tenderness; Type 2 diabetes mellitus; Cellulitis of groin; Diverticulosis of intestine, part unspecified, without perforation or abscess without bleeding. Bed requested for Telemetry/MedSurg (Inpatient). Status is Inpatient Admission. Condition is Fair. Problem is new. Symptoms have improved. UTI on Admission? No. amanda 10:42 07:02 11/22/2019 06:59 Hospitalization Ordered by Georges Luciano MD for Inpatient ss Admission. Preliminary diagnosis is Abdominal tenderness; Type 2 diabetes mellitus; Cellulitis of groin; Diverticulosis of intestine, part unspecified, without perforation or abscess without bleeding; Unspecified kidney failure. Bed requested for Telemetry/MedSurg (Inpatient). Status is Inpatient Admission. Condition is Fair. Problem is new. Symptoms have improved. UTI on Admission? No. amanda 16:04 10:42 11/22/2019 06:59 Hospitalization Ordered by Georges Luciano MD for Inpatient eb Admission. Preliminary diagnosis is Abdominal tenderness; Type 2 diabetes mellitus; Cellulitis of groin; Diverticulosis of intestine, part unspecified, without perforation or abscess without bleeding; Unspecified kidney failure. Bed requested for [facility] ER HOLD. Status is Inpatient Admission. Condition is Fair. Problem is new. Symptoms have improved. UTI on Admission? No. ss 16:05 16:04 11/22/2019 06:59 Hospitalization Ordered by Georges Luciano MD for Inpatient dw Admission. Preliminary diagnosis is Abdominal tenderness; Type 2 diabetes mellitus; Cellulitis of groin; Diverticulosis of intestine, part unspecified, without perforation or abscess without bleeding; Unspecified kidney failure. Bed requested for Telemetry/MedSurg (Inpatient). Status is Inpatient Admission. Condition is Fair. Problem is new. Symptoms have improved. UTI on Admission? No. eb 16:45 16:05 11/22/2019 06:59 Hospitalization Ordered by Georges Luciano MD for Inpatient ss Admission. Preliminary diagnosis is Abdominal tenderness; Type 2 diabetes mellitus; Cellulitis of groin; Diverticulosis of intestine, part unspecified, without perforation or abscess without bleeding; Unspecified kidney failure. Bed requested for Telemetry/MedSurg (Inpatient). Status is Inpatient Admission. Condition is Fair. Problem is new. Symptoms have improved. UTI on Admission? No. dw
[2019-11-22] MEDS ORDERED: Levofloxacin500mg IV 500 MG/100 ML BAG IV ONE (07:44)
[2019-11-22] MEDS ORDERED: METRONIDAZOLE 500mg IVPB 500 MG/100 ML BAG IV ONE (07:44)
--- NOTE | 2019-11-22 08:31 | RAD REPORT ---
EXAM DESCRIPTION: RAD - Chest Single View - 11/22/2019 5:46 am CLINICAL HISTORY: abdominal pain COMPARISON: Chest Single View dated 09/30/2019 TECHNIQUE: AP portable chest image was obtained 11/22/2019 5:46 am . FINDINGS: Low lung volumes are noted. Linear stranding in each base most likely atelectasis or possi shivam scarring. This is not a typical infiltrate presentation. No failure or volume overload. Heart and vasculature are normal. No measurable pleural effusion and no pneumothorax. No acute bony abnormality seen. No acute aortic findings suspected. IMPRESSION: Bilateral lung base atelectasis without acute infiltrate, failure or other acute cardiop ulmonary finding.
[2019-11-22] MEDS ORDERED: HYDROMORPHONE HCL 0.5 MG/0.5 ML INJ ONE ×3 (08:45→16:38)
--- NOTE | 2019-11-22 08:50 | RAD REPORT ---
EXAM DESCRIPTION: US - Pelvis Complete - 11/22/2019 8:16 am CLINICAL HISTORY: Possible abscess/fluctuance in the right groin COMPARISON: Pelvis W/Cont dated 09/28/2019; Abdomen Pelvis W Contrast dated 11/22/2019 TECHNIQUE: Transabdominal pelvic sonography was performed. FINDINGS: Sonographic evaluation was performed focused on the right groin. Patient has history of dr ainage procedure in the right groin approximately 1 month earlier. Overlying skin and immediate subcutaneous fatty tissues are edematous. There are several 12 mm or les s sized lymph nodes. These have benign characteristics and are most likely reactive. In the right taylor in area of concern there is a 15-20 millimeter crescent-shaped area of decreased echogenicity. There is no defined capsule. This focus is 5-10 mm deep from the skin surface. There is a small narrow tail or channel that extends deeper towards lower pelvic musculature. IMPRESSION: Heterogeneous hypoechoic 15-20 mm sized collection deep to the skin in the right groin. This is most likely infectious/ inflammatory remnant. This is not currently seen as a defined or drai nable fluid collection. Several small 12 mm or less reactive lymph nodes in the right groin.
[2019-11-22] MEDS: HYDROMORPHONE HCL 0.5 MG/0.5 ML INJ IV PRN ×4 (08:55→20:20)
[2019-11-22] MEDS: NA CHLORIDE 0.9% 1,000 ML IV SCH ×2 (09:00→17:21)
[2019-11-22] MEDS ORDERED: VANCOMYCIN 1.25 GM in NA CHLORIDE 0.9% 250 ML IVPB SCH (09:00)
[2019-11-22] MEDS: VANCOMYCIN 1.75 GM in NA CHLORIDE 0.9% 500 ML IVPB SCH (09:07)
--- NOTE | 2019-11-22 09:46 | RAD REPORT ---
EXAM DESCRIPTION: CT - Abdomen Pelvis W Contrast - 11/22/2019 6:02 am CLINICAL HISTORY: The patient is 54 years old and is Male; abdominal pain TECHNIQUE: Axial computed tomography images of the abdomen and pelvis with intravenous contrast. S agittal and coronal reformatted images were created and reviewed. This CT exam was performed using one or more of the following dose reduction techniques: automated exposure control, adjustment of t he mA and/or kV according to patient size, and/or use of iterative reconstruction technique. COMPARISON: CT of the abdomen and pelvis September 28, 2019. FINDINGS: LUNG BASES: Minimal dependent densities in the lung bases are present. ABDOMEN: LIVER: Unremarkable. No mass. GALLBLADDER AND BILE DUCTS: The gallbladder is distended. No calcified gallstones are seen. PANCREAS: No ductal dilation. No mass. SPLEEN: Unremarkable. ADRENALS: Unremarkable. No mass. KIDNEYS AND URETERS: Punctate bilateral intrarenal calcifications are present. There is no hydro nephrosis or hydroureter of either kidney. No obstructing renal or ureteral calculus is seen. STOMACH AND BOWEL: Stomach is fluid-filled. The small bowel is normal in caliber. A moderate tamiko unt stool is present throughout colon. No evidence of bowel obstruction. No significant bowel wall th ickening. Colonic diverticulosis is noted, without associated inflammatory changes to suggest diverti culitis. PELVIS: APPENDIX: The appendix is normal in caliber without surrounding inflammation. BLADDER: Unremarkable. No mass. REPRODUCTIVE: Unremarkable as visualized. ABDOMEN and PELVIS: INTRAPERITONEAL SPACE: Unremarkable. No free air. No significant fluid collection. BONES/JOINTS: Multilevel degenerative change of the spine is present. SOFT TISSUES: A large fat-containing umbilical hernia is present. VASCULATURE: Atherosclerosis of the vasculature is present. The vessels are normal in caliber. No abdominal aortic aneurysm. LYMPH NODES: Unremarkable. No enlarged lymph nodes. IMPRESSION: 1. Colonic diverticulosis without evidence of diverticulitis. 2. Bilateral nephrolithiasis without obstruction. 3. Large fat-containing umbilical hernia. Electronically signed by: Fay Rider MD 11/22/2019 5:55 AM METAL DEALER Due to temporary technical issues with the PACS/Fluency reporting system, reports are being signed by the in house radiologist as a courtesy to ensure prompt reporting. The interpreting radiologist is f ully responsible for the content of the report.
[2019-11-22] MEDS: ONDANSETRON 4 MG/2 ML VIAL IV PRN ×3 (10:01→21:15)
[2019-11-22] MEDS: AMPICILLIN/SULBACT 3 GM in NA CHLORIDE 0.9% 100 ML IVPB SCH ×2 (12:00→17:18)
--- NOTE | 2019-11-22 12:42 | P.HP ---
Certification for Inpatient Patient admitted to: Inpatient With expected LOS: >2 Midnights Patient will require the following post-hospital care: None Practitioner: I am a practitioner with admitting privileges, knowledge of patient current condition, hospital course, and medical plan of care. Services: Services provided to patient in accordance with Admission requirements found in Title 42 Section 412.3 of the Code of Federal Regulations Patient History Date of Service: 11/22/19 Reason for admission: CELLULITIS OF THE RIGHT GROIN History of Present Illness: PATIENT IS A 54-YEAR-OLD GENTLEMAN WHO CAME TO THE HOSPITAL WITH PAIN IN THE RIGHT GROIN REGION. PATIENT WAS RECENTLY TREATED FOR THE ABSCESS AND WITH I&D AND FOLLOWED UP AT THE [facility]SING WITH IV ANTIBIOTICS. THESE WERE DISCONTINUED 48 HOURS AGO. THE PATIENT NOTICED SOME ERYTHEMA OVER THE LAST COUPLE OF DAYS THAT WAS NOT THERE WHILE PATIENT WAS ON THE ANTIBIOTICS. REDNESS HAS PROGRESSED AND HE HAS ALSO HAD SOME ABDOMINAL PAIN. THE PAIN IS IN THE RIGHT GROIN REGION AND IS VERY TENDER. HIS PAIN MEDICATION IS NOT HELPING. HE CAME INTO THE ER FOR EVALUATION. IN THE ER HE HAD A CT SCAN OF THE ABDOMEN AND PELVIS AND ULTRASOUND WHICH HAS NOT REVEALED ANY PATHOLOGY. HE WILL BE ADMITTED FOR IV ANTIBIOTIC THERAPY AND SURGERY CONSULTATION. Allergies No Known Allergies Allergy (Verified 09/27/19 22:53) Home Medications: Gabapentin [Neurontin] 800 mg PO QID 12/27/16 Pravastatin Sodium [Pravachol] 20 mg PO DAILY 12/27/16 Zolpidem Tartrate [Ambien*] 5 mg PO BEDTIME PRN 12/29/17 Pantoprazole [Protonix Tab*] 40 mg PO DAILY 12/30/17 Promethazine HCl 25 mg PO Q4HP PRN 12/30/17 Codeine/APAP [Tylenol W/Codeine #3 tab] 1 tab PO Q6HP PRN #120 tab 10/02/19 Insulin -Regular Human [Novolin -R*] See Protocol SQ ACHS ml 10/02/19 Insulin Glargine Human [Lantus*] 32 units SQ BID ml 10/02/19 Ketorolac [Toradol*] 15 mg IV Q6H PRN vial 10/02/19 traMADol HCL [Ultram*] 50 mg PO TID PRN #60 tab 10/02/19 Metformin HCl [Glucophage*] 500 mg PO BIDWM #60 tab 10/03/19 - Past Medical/Surgical History Has patient received pneumonia vaccine in the past: Yes Diabetic: Yes -: HTN -: IDDM -: MIGRAINES -: TIA 06/07 -: high cholesterol -: gastroparesis -: hyperlipidemia -: 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 moist/pink, EOMI, Sclerae nonicteric Neck: Supple, 2+ carotid pulse no bruit, No LAD, Without JVD or thyroid abnormality Respiratory: Clear to auscultation bilaterally, Normal air movement Cardiovascular: Regular rate/rhythm, Normal S1 S2 Gastrointestinal: Normal bowel sounds, Soft and benign, Non-distended, No rebound, No guarding, Tenderness Musculoskeletal: No clubbing, No swelling, No tenderness Integumentary: Skin lesion, Tenderness/swelling, Erythema, Warmth Neurological: Normal gait, Normal speech, Normal strength at 5/5 x4 extr, Normal tone, Sensation intact, Cranial nerves 3-12 intact, Normal affect Lymphatics: No axilla or inguinal lymphadenopathy - Studies Laboratory Data (last 24 hrs) 11/22/19 04:10: PT 10.7, INR 0.90 11/22/19 04:10: WBC 7.9, Hgb 14.6, Hct 44.4, Plt Count 247 11/22/19 04:10: Sodium 132 L, Potassium 4.4, BUN 28 H, Creatinine 1.34 H, Glucose 435 H*, Magnesium 1.9, Total Bilirubin 0.3, AST 12 L, ALT 18, Alkaline Phosphatase 123 H, Lipase 84 11/22/19 03:46: PT Cancelled, INR Cancelled 11/22/19 03:46: WBC Cancelled, Hgb Cancelled, Hct Cancelled, Plt Count Cancelled 11/22/19 03:46: Sodium Cancelled, Potassium Cancelled, BUN Cancelled, Creatinine Cancelled, Glucose Cancelled, Magnesium Cancelled, Total Bilirubin Cancelled, AST Cancelled, ALT Cancelled, Alkaline Phosphatase Cancelled, Lipase Cancelled Assessment & Plan - Problems (Diagnosis) (1) Cellulitis of groin, right Current Visit: Yes Status: Acute (2) CVA (cerebral vascular accident) Onset Date: 06/28/16 Current Visit: No Status: Chronic Qualifiers: (3) Diabetes mellitus Onset Date: 06/03/16 Current Visit: No Status: Chronic Qualifiers: (4) GERD (gastroesophageal reflux disease) Current Visit: No Status: Chronic Qualifiers: (5) History of TIA (transient ischemic attack) Current Visit: No Status: Chronic (6) Hyperlipidemia Current Visit: No Status: Chronic Qualifiers: (7) Hypertension Onset Date: 06/17/16 Current Visit: No Status: Chronic Qualifiers: Hypertension type: essential hypertension - Plan 1. CONTINUE WITH IV ANTIBIOTIC 2. MONITOR LABS AND ELECTROLYTES 3. SURGICAL CONSULTATION 4. GENTLE IV HYDRATION 5. MONITOR CBC 6. STRICT BLOOD SUGAR MONITORING 7. PAIN CONTROL 8. GI AND DVT PROPHYLAXIS Discharge Plan: Home Plan to discharge in: Greater than 2 days - Advance Directives Does patient have a Living Will: No Does patient have a Durable POA for Healthcare: No - Code Status/Comfort Care Code Status Assessed: Yes Code Status: Full Code Critical Care: No Time Spent Managing PTS Care (In Minutes): 45
--- NOTE | 2019-11-22 13:46 | EKG ---
Test Date: 2019-11-22 Test Time: 04:15:11 Office Bookkeeper: JESSICA MEASUREMENT RESULTS: Intervals: Rate: 78 RI: 184 QRSD: 108 QT: 400 QTc: 456 [place]: P: 58 RI: 184 QRS: 64 T: 79 INTERPRETIVE STATEMENTS: Normal sinus rhythm Anterior infarct, age undetermined Abnormal ECG Compared to ECG 09/27/2019 19:46:21 No significant changes Electronically Signed On 11-22-19 13:45:39 LUBRICATION SERVICER by Franc Esteban
[2019-11-22 17:13] VITALS: BMI 31.8
[2019-11-22 17:44] LABS: Urine Appearance CLEAR; Urine Bilirubin NEGATIVE (NEG); Urine Blood NEGATIVE (NEG); Urine Color YELLOW; Urine Glucose 3+ (NEG); Urine Protein 2+ (NEG); Urine Specific Gravity >=1.030 (1.005-1.030); Urine Urobilinogen 0.2 mg/dL (0.2-1.0); Urine pH 5.5 (5.0-7.0)
[2019-11-22 17:45] LABS: Urine Microscopic Reflex ORDER UMIC
[2019-11-22 17:52] LABS: Urine Bacteria <20 /HPF (NONE SEEN); Urine Culture Reflex Order NOT NEEDED; Urine RBC NONE SEEN /HPF (NONE SEEN)
[2019-11-23] MEDS: AMPICILLIN/SULBACT 3 GM in NA CHLORIDE 0.9% 100 ML IVPB SCH ×4 (00:04→17:43)
[2019-11-23] MEDS: HYDROMORPHONE HCL 0.5 MG/0.5 ML INJ IV PRN ×5 (00:11→22:21)
[2019-11-23] MEDS: ONDANSETRON 4 MG/2 ML VIAL IV PRN ×3 (00:19→20:07)
--- NOTE | 2019-11-23 00:24 | CON ---
Date of Consultation: 11/22/2019 Brief History Of Present Illness: Patient is a 54-year-old gentleman, known to me from previous hosp italizations, who was admitted to the hospital on September 27 or with a necrotizing soft tissue infection of the right groin. He had an incision and drainage, and debridement of necrotizing soft t issue infection at that time, was placed on long-term antibiotics, went to a senior care, received h is antibiotic therapy and ultimately healed his wound closed completely. He had been doing well for approximately a month thereafter. However, over the past 2 days, he noticed increasing redness and s welling to the right groin once again somewhat similar to his previous episode, but not as severe. H e noted that the swelling, redness, and tenderness got worse. He had decreased appetite and pain int o the right groin area; and as such, he came to the emergency room with the above-stated complaints. Past Medical History: Significant for hypertension, diabetes, migraines, TIA, high cholesterol, braden roparesis, hyperlipidemia. He has had multiple surgeries before with multiple staph infections x5, r ight knee arthroscopic repair and debridement of right groin abscess for necrotizing soft tissue infe ction on 09/28/2019. Home Medications: Neurontin, Pravachol, Ambien, Protonix, Phenergan, Tylenol No. 3, Novolin, Lantus, Toradol, Ultram, Glucophage. Allergies: NO KNOWN DRUG ALLERGIES. Family History: Significant for stroke in his father. Mother had cancer. Denies smoking, alcohol, or recreational drug Review of Systems: 10-point review of systems other than HPI, denies. Physical Examination: Vital Signs: At the time of my examination, his vital signs were a temperature of 97.4, blood pressu re 143/83, pulse is 78, respiratory rate 18. General: He is awake, alert, and oriented. PSYCHIATRIC: Appropriate. Conversive. He is in no apparent distress. HEENT: Normocephalic. Sclerae icteric. Mucous membranes are moist. Oropharynx is clear. Neck: Supple. No JVD. Chest: Normal expansion and excursion. Cardiovascular: Regular rate and rhythm. Pulmonary: Clear to auscultation bilaterally. Abdomen: Soft, nontender, but he has a large fat-containing umbilical hernia, which is not reducible . Pelvic: Focused examination of the right inguinal area shows an area of cellulitis and mild tenderne ss to the right groin area. There is a well-healed scar in the area. The cellulitis extends in the groin area. At this point, I do not feel a palpable obvious drainable fluid collection at this point . Extremities: No clubbing, cyanosis, or edema. Skin: Warm and dry. Laboratory Data: A white blood cell count of 7.9, hemoglobin is 14.6, hematocrit of 44.4, platelet c ount is 247. His neutrophils are normal at 59%. His PT is 10.7. His sodium 132, potassium 4.4, chl oride 97, carbon dioxide 27, BUN 28, creatinine 1.3, glucose was 435 on admission, calcium was 8.5. His total bilirubin 0.3, AST 12, ALT 18, alkaline phosphatase 123. Troponin less than 0.02. His lip ase is 84. His UA was essentially negative. He had imaging performed, which included an ultrasound of the pelvis and a CT of abdomen and pelvis. The ultrasound of the pelvis was officially read as he terogeneous hypoechoic 15-20 mm size collection deep to the skin of the right groin. This is most li anny infectious/inflammatory remnant. This is not currently seen as a defined or drainable fluid col lection. Several small 12 mm or less reactive lymph nodes in the right groin. Additionally, he had a CT of the abdomen and pelvis officially read as colonic diverticulosis without evidence of divertic ulitis, bilateral nephrolithiasis without obstruction, large fat-containing umbilical hernia. Additi onally, he had a chest x-ray performed as well, which was officially read as bilateral lung base atel ectasis without acute infiltrate, failure, or other acute cardiopulmonary findings. Assessment And Plan: This is a 54-year-old male with a recurrent infection of the right groin of unc ertain etiology. 1.IV fluid hydration. 2.Antibiotic coverage. 3.I have explained the risks, benefits, alternatives of incision, drainage, and debridement of this right groin infected tissue including, but not limited to bleeding, infection, damage to surrounding tissues, need for further operation and procedures. Patient agrees to proceed as indicated. SANTO/SAMSON Voice ID: [id number] Report ID: [id number]
[2019-11-23] MEDS: VANCOMYCIN 1.75 GM in NA CHLORIDE 0.9% 500 ML IVPB SCH ×2 (02:10→21:39)
[2019-11-23] MEDS: NA CHLORIDE 0.9% 1,000 ML IV SCH ×4 (04:00→23:44)
[2019-11-23 06:44] LABS: Absolute Lymphocytes (CBC) 2.2 K/uL (0.7-4.9); Basophils % 1.7 % (0-1.3); Hematocrit 43.4 % (39.6-49.0); Lymphocytes % 36.4 % (15.3-44.8); MPV 9.6 fL (7.6-11.3); RBC Red Blood Cell Count 4.95 M/uL (4.33-5.43)
[2019-11-23 07:13] LABS: Albumin 3.1 g/dL (3.4-5.0); Bilirubin Total 0.7 mg/dL (0.2-1.0); Potassium 4.4 mmol/L (3.5-5.1); Protein, Total 7.2 g/dL (6.4-8.2)
[2019-11-23] MEDS: BUPIVACA 0.5%/EPI 0.0005%/PF 30 ML VIAL ONE ×2 (09:02→09:58)
[2019-11-23] MEDS ORDERED: NA CHLORIDE 0.9% 1,000 ML ONE (09:04)
[2019-11-23] MEDS ORDERED: INSULIN -REGULAR HUMAN 50 UNIT/0.5 ML ML ONE ×2 (09:26→10:16)
[2019-11-23] MEDS ORDERED: propofoL 200 MG/20 ML VIAL IV ONE (09:31)
[2019-11-23] MEDS ORDERED: LIDOCAINE 2% MPF 5 ML VIAL ONE (09:31)
[2019-11-23] MEDS ORDERED: FENTANYL CITR 100 MCG/2 ML ONE (09:45)
[2019-11-23] MEDS ORDERED: ONDANSETRON 4 MG/2 ML VIAL ONE ×2 (09:46→10:45)
[2019-11-23] MEDS ORDERED: dexAMETHasone 10 MG/ML VIAL ONE (09:47)
[2019-11-23] MEDS ORDERED: Phenylephrine HCl 10 MG/ML 1 ML VIAL ONE (09:53)
--- NOTE | 2019-11-23 09:57 | P.OP ---
Preoperative diagnosis: Soft Tissue Infection / Phlegmon of RIGHT Groin Postoperative diagnosis: Soft Tissue Infection / Phlegmon of RIGHT Groin Primary procedure: Excisional Debridement of Soft Tissue Infection / Phlegmon of RIGHT Groin Anesthesia: GETA + Local Estimated blood loss: <2cc Specimen: Debridement Tissue Findings: Cellulitis and soft tissue swelling, no collection Complications: None Transferred to: Recovery Room Condition: Good
[2019-11-23] MEDS ORDERED: HYDROMORPHONE HCL 1 MG/ML INJ ONE (10:30)
[2019-11-23] MEDS ORDERED: GLUCAGON 1 MG/VIAL IM PRN (12:23)
[2019-11-23] MEDS ORDERED: D50W 25 GM/50 ML SYRINGE/VIAL IV PRN (12:23)
[2019-11-23] MEDS: INSULIN LISPRO 100 UNIT/1 ML SQ SCH ×3 (12:42→21:38)
--- NOTE | 2019-11-23 13:37 | P.PN ---
Subjective Date of Service: 11/23/19 Chief Complaint: CELLULITIS OF THE RIGHT GROIN Subjective: New changes (Status post drainage of right groin abscess today feels a bit nauseauted but also would like to eat) Review of Systems Unremarkable Physical Examination - Vital Signs Temperature: 98 F Blood Pressure: 121/71 Pulse: 82 Respirations: 16 Pulse Ox (%): 93 - Physical Exam General: Alert, In no apparent distress, Oriented x3 HEENT: Atraumatic, Normocephalic, PERRLA Neck: JVD not distended, No Thyromegaly Respiratory: Clear to auscultation bilaterally, Normal air movement Cardiovascular: No edema, Normal pulses, Regular rate/rhythm, Normal S1 S2 Gastrointestinal: Normal bowel sounds, Soft and benign, Non-distended Musculoskeletal: No clubbing, No swelling Integumentary: Other (dsg over right groin/inguinal aregion ) Neurological: Normal gait, Normal speech, Normal strength at 5/5 x4 extr - Studies Laboratory Last Values WBC 6.1 K/uL (4.3-10.9) D 11/23/19 05:54 RBC 4.95 M/uL (4.33-5.43) 11/23/19 05:54 Hgb 14.2 g/dL (13.6-17.9) 11/23/19 05:54 Hct 43.4 % (39.6-49.0) 11/23/19 05:54 MCV 87.7 fL (80-100) 11/23/19 05:54 MCH 28.7 pg (27.0-35.0) 11/23/19 05:54 MCHC 32.7 g/dL (32.0-36.0) 11/23/19 05:54 RDW 13.6 % (12.1-15.2) 11/23/19 05:54 Plt Count 233 K/uL (152-406) 11/23/19 05:54 MPV 9.6 fL (7.6-11.3) 11/23/19 05:54 Neutrophils % 50.5 % (41.7-73.7) 11/23/19 05:54 Lymphocytes % 36.4 % (15.3-44.8) 11/23/19 05:54 Monocytes % 7.3 % (3.3-12.3) 11/23/19 05:54 Eosinophils % 4.1 % (0-4.4) 11/23/19 05:54 Basophils % 1.7 % (0-1.3) H 11/23/19 05:54 Absolute Neutrophils 3.1 K/uL (1.8-8.0) 11/23/19 05:54 Absolute Lymphocytes 2.2 K/uL (0.7-4.9) 11/23/19 05:54 Absolute Monocytes 0.4 K/uL (0.1-1.3) 11/23/19 05:54 Absolute Eosinophils 0.2 K/uL (0-0.5) 11/23/19 05:54 Absolute Basophils 0.1 K/uL (0-0.5) 11/23/19 05:54 Diff Path Review Cancelled 11/22/19 03:46 PT 10.7 SECONDS (9.5-12.5) 11/22/19 04:10 INR 0.90 11/22/19 04:10 Sodium 140 mmol/L (136-145) 11/23/19 05:54 Potassium 4.4 mmol/L (3.5-5.1) 11/23/19 05:54 Chloride 105 mmol/L (98-107) 11/23/19 05:54 Carbon Dioxide 29 mmol/L (21-32) 11/23/19 05:54 BUN 14 mg/dL (7-18) 11/23/19 05:54 Creatinine 1.01 mg/dL (0.55-1.3) 11/23/19 05:54 Estimated GFR 76 mL/min (=/>90) L 11/23/19 05:54 Glucose 184 mg/dL (74-106) H 11/23/19 05:54 POC Glucose 235 mg/dl (65-120) H 11/23/19 11:38 Calcium 8.7 mg/dL (8.5-10.1) 11/23/19 05:54 Magnesium 1.9 mg/dL (1.8-2.4) 11/22/19 04:10 Total Bilirubin 0.7 mg/dL (0.2-1.0) 11/23/19 05:54 Direct Bilirubin < 0.1 mg/dL (0-0.2) 11/22/19 04:10 AST 19 U/L (15-37) 11/23/19 05:54 ALT 17 U/L (12-78) 11/23/19 05:54 Alkaline Phosphatase 111 U/L (45-117) 11/23/19 05:54 Creatine Kinase 191 U/L (39-308) 11/23/19 05:54 Rapid Troponin I < 0.02 ng/mL (0.0-0.045) 11/22/19 04:10 NT-Pro-B Natriuret Pep 81 pg/mL (<125) 11/22/19 04:10 Serum Total Protein 7.2 g/dL (6.4-8.2) 11/23/19 05:54 Albumin 3.1 g/dL (3.4-5.0) L 11/23/19 05:54 Globulin 4.1 g/dL (2.3-3.5) H 11/23/19 05:54 Albumin/Globulin Ratio 0.8 (1.1-1.8) L 11/23/19 05:54 Lipase 84 U/L (73-393) 11/22/19 04:10 Procalcitonin 0.06 ng/mL (<0.50) 11/22/19 04:10 Urine Color Yellow 11/22/19 17:29 Urine Appearance Clear 11/22/19 17:29 Urine pH 5.5 (5.0-7.0) 11/22/19 17:29 Ur Specific [place] >=1.030 (1.005-1.030) 11/22/19 17:29 Glucose (UA)(Auto) 3+ (NEG) H 11/22/19 17:29 Urine Ketones Negative (NEG) 11/22/19 17:29 Urine Blood Negative (NEG) 11/22/19 17:29 Urine Nitrite Negative (NEG) 11/22/19 17:29 Urine Bilirubin Negative (NEG) 11/22/19 17:29 Urine Urobilinogen 0.2 mg/dL (0.2-1.0) 11/22/19 17:29 Ur Leukocyte Esterase Negative (NEG) 11/22/19 17:29 Urine RBC None seen /HPF (NONE SEEN) 11/22/19 17:29 Urine WBC <5 /HPF (<5) 11/22/19 17:29 Ur Squamous Epith Cells <5 /HPF (NONE SEEN) 11/22/19 17:29 Urine Bacteria <20 /HPF (NONE SEEN) 11/22/19 17:29 Urine Culture Reflexed Not needed 11/22/19 17:29 Urine Total Protein 2+ (NEG) H 11/22/19 17:29 Medications List Reviewed: Yes Assessment & Plan - Problems (Diagnosis) (1) Abscess of right groin Current Visit: No Status: Acute (2) CVA (cerebral vascular accident) Onset Date: 06/28/16 Current Visit: No Status: Chronic Qualifiers: (3) Diabetes mellitus Onset Date: 06/03/16 Current Visit: No Status: Chronic Qualifiers: (4) Hyperlipidemia Current Visit: No Status: Chronic Qualifiers: (5) Hypertension Onset Date: 06/17/16 Current Visit: No Status: Chronic Qualifiers: Hypertension type: essential hypertension Physician Review: Patient Assessed, Agree with Above Assessment and Plan Physician Review Additional Text: Right groin cellulitis/abscess-status post debridement, continue empirical antibiotics -follow surgery -we will obtain blood culture x2 -continue pain regimen HTN-controlled, continue home) regimen DM -start insulin sliding scale DVT prophylaxis-subcutaneous Lovenox Disposition-possible home in 48-72 hrs
[2019-11-23] MEDS ORDERED: HOME MED 1 EA UNK (Gabapentin [Neurontin] 800 MG) PO SCH (17:00)
[2019-11-23] MEDS: GABAPENTIN 400 MG CAP PO SCH ×2 (17:37→21:38)
--- NOTE | 2019-11-23 20:46 | OP ---
Date of Procedure: 11/23/2019 Surgeon: Shahzad Bermeo MD, Preoperative Diagnosis: Soft tissue infection/phlegmon of the right groin. Postoperative Diagnosis: Soft tissue infection/phlegmon of the right groin. Procedure Performed: Excisional debridement of soft tissue infection/phlegmon of the right groin. Anesthesia: General endotracheal plus local 0.5% Marcaine with epinephrine. Estimated Blood Loss: Less than 2 mL. Specimen: Debridement tissue. Findings: Cellulitis and soft tissue swelling without drainable fluid collection. Complications: None. Disposition: Transferred to recovery room in good condition. Procedure In Detail: After informed consent was obtained, patient was brought to the operating room, prepped and draped in the usual sterile fashion. After adequate anesthesia was achieved, the area o f the right groin was anesthetized appropriately with 0.5% Marcaine with epinephrine. I made an rossi ptical incision over previous incision approximately 6.5 cm x 3.5 cm down through subcutaneous tissue s and subcutaneous fat. There was no drainable fluid collection at this point. The cellulitis was c onfined to the skin level. The incision therefore carried down only into the subcutaneous fat and th e skin was removed at this point. There was phlegmonous changes to the area, but no drainable fluid collections. As such, the area was copiously irrigated multiple times until completely clear and hem ostasis achieved with electrocautery. The wound was then packed with a Betadine-soaked gauze and a s terile dressing was placed over top. Patient tolerated the procedure well without evidence of compli cation and transferred to PACU in good condition. All counts were correct at the end of the case. SANTO/SAMSON Voice ID: [id number] Report ID: [id number]
[2019-11-23] MEDS: INSULIN GLARGINE 100 UNITS/ML SQ SCH (21:38)
[2019-11-23] MEDS: ZOLPIDEM TARTRATE 5 MG TABLET PO PRN (21:38)
[2019-11-24] MEDS: AMPICILLIN/SULBACT 3 GM in NA CHLORIDE 0.9% 100 ML IVPB SCH ×5 (00:02→23:27)
[2019-11-24 06:39] LABS: Absolute Lymphocytes (CBC) 1.8 K/uL (0.7-4.9); Basophils % 0.4 % (0-1.3); Hematocrit 40.3 % (39.6-49.0); MPV 9.6 fL (7.6-11.3); RBC Red Blood Cell Count 4.63 M/uL (4.33-5.43)
[2019-11-24 06:49] LABS: ALT/SGPT 12 U/L (12-78); AST/SGOT 12 U/L (15-37); Albumin 2.7 g/dL (3.4-5.0); Alkaline Phosphatase 99 U/L (45-117); BUN Blood Urea Nitrogen 15 mg/dL (7-18); Bicarbonate 27 mmol/L (21-32); Bilirubin Total 0.5 mg/dL (0.2-1.0); Creatine Phosphokinase 114 U/L (39-308); Glucose Level 199 mg/dL (74-106); Protein, Total 6.7 g/dL (6.4-8.2); Sodium Level 141 mmol/L (136-145)
[2019-11-24] MEDS: HYDROMORPHONE HCL 0.5 MG/0.5 ML INJ IV PRN ×4 (08:19→20:43)
[2019-11-24] MEDS: GABAPENTIN 400 MG CAP PO SCH ×4 (08:20→20:42)
[2019-11-24] MEDS: PANTOPRAZOLE 40MG TABLET PO SCH (08:20)
[2019-11-24] MEDS: INSULIN LISPRO 100 UNIT/1 ML SQ SCH ×4 (08:21→20:42)
[2019-11-24] MEDS: ENOXAPARIN 40 MG/0.4 ML SQ SCH (08:21)
[2019-11-24] MEDS: ACETAMINOPHEN 500 MG TAB PO PRN ×2 (09:51→14:31)
[2019-11-24] MEDS: INSULIN GLARGINE 100 UNITS/ML SQ SCH ×2 (09:52→20:43)
[2019-11-24] MEDS: NA CHLORIDE 0.9% 1,000 ML IV SCH (11:44)
[2019-11-24] MEDS: ONDANSETRON 4 MG/2 ML VIAL IV PRN ×2 (11:50→17:39)
--- NOTE | 2019-11-24 11:58 | P.PN ---
Subjective Date of Service: 11/24/19 Chief Complaint: CELLULITIS OF THE RIGHT GROIN Subjective: Improving (Patient states groin feels much better, but continues to have lower abdominal pain.) Physical Examination - Vital Signs Temperature: 97.8 F Blood Pressure: 144/91 Pulse: 91 Respirations: 20 Pulse Ox (%): 95 - Physical Exam General: Alert, In no apparent distress, Cooperative Gastrointestinal: Soft and benign Integumentary: Other (RIGHT groin not packed, incision is clean and dry) - Studies Medications List Reviewed: Yes Assessment And Plan - Current Problems (Diagnosis) (1) Cellulitis of groin, right Current Visit: Yes Status: Acute Plan: - continue dressing changes daily with damp to dry packing - continue medical management - can DC from surgical standpoint - follow up in my clinic in 1-2 weeks after discharge - no need for [facility] antibiotics Physician Review: Patient Assessed, Agree with Above Assessment and Plan Physician Review Additional Text: Right groin cellulitis/abscess-status post debridement, continue empirical antibiotics -follow surgery -we will obtain blood culture x2 -continue pain regimen HTN-controlled, continue home) regimen DM -start insulin sliding scale DVT prophylaxis-subcutaneous Lovenox Disposition-possible home in 48-72 hrs
--- NOTE | 2019-11-24 13:09 | P.PN ---
Subjective Date of Service: 11/24/19 Chief Complaint: CELLULITIS OF THE RIGHT GROIN Subjective: No new changes (still having lots of pain) Review of Systems 10-point ROS is otherwise unremarkable Physical Examination - Vital Signs Temperature: 97.8 F Blood Pressure: 144/91 Pulse: 91 Respirations: 20 Pulse Ox (%): 95 - Physical Exam General: Alert, In no apparent distress, Oriented x3 HEENT: Atraumatic, Normocephalic, PERRLA Neck: Supple, 2+ carotid pulse no bruit, JVD not distended Respiratory: Clear to auscultation bilaterally, Normal air movement Cardiovascular: Normal pulses, Regular rate/rhythm, Normal S1 S2 Gastrointestinal: Normal bowel sounds, Soft and benign, Non-distended Integumentary: Other (large debrided ulcer over right inguinal region , clean bed , dsg over area ) - Studies Laboratory Last Values WBC 8.4 K/uL (4.3-10.9) D 11/24/19 05:49 RBC 4.63 M/uL (4.33-5.43) 11/24/19 05:49 Hgb 13.5 g/dL (13.6-17.9) L 11/24/19 05:49 Hct 40.3 % (39.6-49.0) 11/24/19 05:49 MCV 87.0 fL (80-100) 11/24/19 05:49 MCH 29.1 pg (27.0-35.0) 11/24/19 05:49 MCHC 33.5 g/dL (32.0-36.0) 11/24/19 05:49 RDW 13.6 % (12.1-15.2) 11/24/19 05:49 Plt Count 200 K/uL (152-406) 11/24/19 05:49 MPV 9.6 fL (7.6-11.3) 11/24/19 05:49 Neutrophils % 70.6 % (41.7-73.7) 11/24/19 05:49 Lymphocytes % 21.0 % (15.3-44.8) 11/24/19 05:49 Monocytes % 7.4 % (3.3-12.3) 11/24/19 05:49 Eosinophils % 0.6 % (0-4.4) 11/24/19 05:49 Basophils % 0.4 % (0-1.3) 11/24/19 05:49 Absolute Neutrophils 5.9 K/uL (1.8-8.0) 11/24/19 05:49 Absolute Lymphocytes 1.8 K/uL (0.7-4.9) 11/24/19 05:49 Absolute Monocytes 0.6 K/uL (0.1-1.3) 11/24/19 05:49 Absolute Eosinophils 0.0 K/uL (0-0.5) 11/24/19 05:49 Absolute Basophils 0.0 K/uL (0-0.5) 11/24/19 05:49 Diff Path Review Cancelled 11/22/19 03:46 PT 10.7 SECONDS (9.5-12.5) 11/22/19 04:10 INR 0.90 11/22/19 04:10 Sodium 141 mmol/L (136-145) 11/24/19 05:49 Potassium 4.0 mmol/L (3.5-5.1) 11/24/19 05:49 Chloride 107 mmol/L (98-107) 11/24/19 05:49 Carbon Dioxide 27 mmol/L (21-32) 11/24/19 05:49 BUN 15 mg/dL (7-18) 11/24/19 05:49 Creatinine 0.82 mg/dL (0.55-1.3) 11/24/19 05:49 Estimated GFR > 90 mL/min (=/>90) 11/24/19 05:49 Glucose 199 mg/dL (74-106) H 11/24/19 05:49 POC Glucose 241 mg/dl (65-120) H 11/24/19 11:52 Calcium 8.7 mg/dL (8.5-10.1) 11/24/19 05:49 Magnesium 1.9 mg/dL (1.8-2.4) 11/22/19 04:10 Total Bilirubin 0.5 mg/dL (0.2-1.0) 11/24/19 05:49 Direct Bilirubin < 0.1 mg/dL (0-0.2) 11/22/19 04:10 AST 12 U/L (15-37) L 11/24/19 05:49 ALT 12 U/L (12-78) 11/24/19 05:49 Alkaline Phosphatase 99 U/L (45-117) 11/24/19 05:49 Creatine Kinase 114 U/L (39-308) 11/24/19 05:49 Rapid Troponin I < 0.02 ng/mL (0.0-0.045) 11/22/19 04:10 NT-Pro-B Natriuret Pep 81 pg/mL (<125) 11/22/19 04:10 Serum Total Protein 6.7 g/dL (6.4-8.2) 11/24/19 05:49 Albumin 2.7 g/dL (3.4-5.0) L 11/24/19 05:49 Globulin 4.0 g/dL (2.3-3.5) H 11/24/19 05:49 Albumin/Globulin Ratio 0.7 (1.1-1.8) L 11/24/19 05:49 Lipase 84 U/L (73-393) 11/22/19 04:10 Procalcitonin 0.06 ng/mL (<0.50) 11/22/19 04:10 Urine Color Yellow 11/22/19 17:29 Urine Appearance Clear 11/22/19 17:29 Urine pH 5.5 (5.0-7.0) 11/22/19 17:29 Ur Specific [place] >=1.030 (1.005-1.030) 11/22/19 17:29 Glucose (UA)(Auto) 3+ (NEG) H 11/22/19 17:29 Urine Ketones Negative (NEG) 11/22/19 17:29 Urine Blood Negative (NEG) 11/22/19 17:29 Urine Nitrite Negative (NEG) 11/22/19 17:29 Urine Bilirubin Negative (NEG) 11/22/19 17:29 Urine Urobilinogen 0.2 mg/dL (0.2-1.0) 11/22/19 17:29 Ur Leukocyte Esterase Negative (NEG) 11/22/19 17:29 Urine RBC None seen /HPF (NONE SEEN) 11/22/19 17:29 Urine WBC <5 /HPF (<5) 11/22/19 17:29 Ur Squamous Epith Cells <5 /HPF (NONE SEEN) 11/22/19 17:29 Urine Bacteria <20 /HPF (NONE SEEN) 11/22/19 17:29 Urine Culture Reflexed Not needed 11/22/19 17:29 Urine Total Protein 2+ (NEG) H 11/22/19 17:29 Medications List Reviewed: Yes Assessment & Plan - Problems (Diagnosis) (1) Abscess of right groin Current Visit: No Status: Acute (2) CVA (cerebral vascular accident) Onset Date: 06/28/16 Current Visit: No Status: Chronic Qualifiers: (3) Diabetes mellitus Onset Date: 06/03/16 Current Visit: No Status: Chronic Qualifiers: (4) Hyperlipidemia Current Visit: No Status: Chronic Qualifiers: (5) Hypertension Onset Date: 06/17/16 Current Visit: No Status: Chronic Qualifiers: Hypertension type: essential hypertension Discharge Plan: Home Plan to discharge in: 24 Hours Physician Review: Patient Assessed, Agree with Above Assessment and Plan Physician Review Additional Text: Right groin cellulitis/abscess- s/p debridement by surgery , clear for discharge - blood and culture negative till date , continue empirical antibiotics -patient state he is unable to go home due to stiars at home , feels weak to climb stairs - will obtain PT eval in am -continue pain regimen -c/w dry dressing per surgery HTN-controlled, continue home) regimen DM -controlled , c/w insulin sliding scale DVT prophylaxis-subcutaneous Lovenox Disposition-possible home in 24 hrs
[2019-11-24] MEDS: ZOLPIDEM TARTRATE 5 MG TABLET PO PRN (23:34)
[2019-11-25] MEDS: HYDROMORPHONE HCL 0.5 MG/0.5 ML INJ IV PRN ×6 (00:33→20:40)
[2019-11-25] MEDS: ONDANSETRON 4 MG/2 ML VIAL IV PRN ×4 (00:40→16:31)
[2019-11-25 05:37] LABS: Absolute Lymphocytes (CBC) 3.3 K/uL (0.7-4.9); Basophils % 1.2 % (0-1.3); Hematocrit 40.4 % (39.6-49.0); Lymphocytes % 47.3 % (15.3-44.8); MPV 9.2 fL (7.6-11.3); RBC Red Blood Cell Count 4.58 M/uL (4.33-5.43)
[2019-11-25] MEDS: AMPICILLIN/SULBACT 3 GM in NA CHLORIDE 0.9% 100 ML IVPB SCH (05:37)
[2019-11-25] MEDS: ENOXAPARIN 40 MG/0.4 ML SQ SCH (08:45)
[2019-11-25] MEDS: INSULIN LISPRO 100 UNIT/1 ML SQ SCH ×4 (08:46→20:43)
[2019-11-25] MEDS: INSULIN GLARGINE 100 UNITS/ML SQ SCH ×2 (08:46→20:43)
[2019-11-25] MEDS: GABAPENTIN 400 MG CAP PO SCH ×5 (08:47→20:45)
[2019-11-25] MEDS: PANTOPRAZOLE 40MG TABLET PO SCH (08:47)
--- NOTE | 2019-11-25 12:36 | P.PN ---
Subjective Date of Service: 11/25/19 Chief Complaint: CELLULITIS OF THE RIGHT GROIN Subjective: Improving (Patient doing fair at this time. Patient prefers to go to a skilled facility.) Physical Examination - Vital Signs Temperature: 97.2 F Blood Pressure: 156/93 Pulse: 73 Respirations: 18 Pulse Ox (%): 98 - Physical Exam General: Alert, In no apparent distress, Cooperative HEENT: Atraumatic Neck: Supple Respiratory: Clear to auscultation bilaterally, Normal air movement Cardiovascular: Normal pulses, Regular rate/rhythm Gastrointestinal: Normal bowel sounds, Soft and benign, Non-distended Integumentary: Other (Patient reports pain to the growing region but improved.) - Studies Medications List Reviewed: Yes Assessment & Plan Discharge Plan: Other ([facility] facility) Plan to discharge in: 24 Hours Physician Review Additional Text: Impression: Right groin cellulitis/abscess status post debridement Diabetes mellitus type 2 Hypertension Chronic wounds Diabetic neuropathy GERD Plan: Right groin cellulitis/abscess status post debridement: Patient cleared by surgery for discharge. Patient prefers to go to a skilled facility. What physical therapy and occupational therapy evaluate patient. Social work consulted to help in this process. If it is too expensive patient may require home health and physical therapy at discharge. Will transition to Augmentin and doxycycline for 1 week. Patient will need follow up with surgery. Diabetes mellitus type 2: Will monitor Accu-Cheks. Will provide sliding scale. Will continue to increase basal insulin for better control. Hypertension: Continue medications. Will monitor and adjust appropriately Chronic wounds: Will have wound care address wounds to the lower extremity. Diabetic neuropathy: Continue with medication. GERD: Continue with medication. Time Spent Managing Pts Care (In Minutes): 55
--- NOTE | 2019-11-25 15:27 | P.PN ---
Subjective Date of Service: 11/25/19 Chief Complaint: CELLULITIS OF THE RIGHT GROIN Subjective: Improving (patient feels much better) Physical Examination - Vital Signs Temperature: 97.2 F Blood Pressure: 156/93 Pulse: 73 Respirations: 19 Pulse Ox (%): 96 - Physical Exam General: Alert, In no apparent distress, Cooperative Integumentary: Other (RIGHT groin wound is healing well) - Studies Medications List Reviewed: Yes Assessment And Plan - Current Problems (Diagnosis) (1) Cellulitis of groin, right Current Visit: Yes Status: Acute Plan: - continue dressing changes daily with damp to dry packing - continue medical management - can DC from surgical standpoint - follow up in my clinic in 1-2 weeks after discharge - no need for [facility] [employer] [facility] antibiotics Physician Review: Patient Assessed, Agree with Above Assessment and Plan Physician Review Additional Text: Impression: Right groin cellulitis/abscess status post debridement Diabetes mellitus type 2 Hypertension Chronic wounds Diabetic neuropathy GERD Plan: Right groin cellulitis/abscess status post debridement: Patient cleared by surgery for discharge. Patient prefers to go to a skilled facility. What physical therapy and occupational therapy evaluate patient. Social work consulted to help in this process. If it is too expensive patient may require home health and physical therapy at discharge. Will transition to Augmentin and doxycycline for 1 week. Patient will need follow up with surgery. Diabetes mellitus type 2: Will monitor Accu-Cheks. Will provide sliding scale. Will continue to increase basal insulin for better control. Hypertension: Continue medications. Will monitor and adjust appropriately Chronic wounds: Will have wound care address wounds to the lower extremity. Diabetic neuropathy: Continue with medication. GERD: Continue with medication.
[2019-11-25] MEDS: DOXYCYCLINE 100 MG CAP PO SCH (20:45)
[2019-11-25] MEDS: AMOX/K CLAV 875 MG TAB PO SCH (20:45)
[2019-11-26] MEDS: HYDROMORPHONE HCL 0.5 MG/0.5 ML INJ IV PRN ×5 (03:41→21:12)
[2019-11-26 06:01] LABS: Absolute Lymphocytes (CBC) 3.2 K/uL (0.7-4.9); Basophils % 1.4 % (0-1.3); Hematocrit 42.1 % (39.6-49.0); Lymphocytes % 46.3 % (15.3-44.8); MPV 9.3 fL (7.6-11.3); RBC Red Blood Cell Count 4.79 M/uL (4.33-5.43)
[2019-11-26 06:54] LABS: Blood Morphology Comment NOTED (NOT SEEN); Platelet Estimate ADEQ
[2019-11-26] MEDS: DOXYCYCLINE 100 MG CAP PO SCH ×2 (08:04→21:10)
[2019-11-26] MEDS: INSULIN LISPRO 100 UNIT/1 ML SQ SCH ×4 (08:05→21:11)
[2019-11-26] MEDS: GABAPENTIN 400 MG CAP PO SCH ×4 (08:05→21:10)
[2019-11-26] MEDS: ENOXAPARIN 40 MG/0.4 ML SQ SCH (08:05)
[2019-11-26] MEDS: AMOX/K CLAV 875 MG TAB PO SCH ×2 (08:05→21:10)
[2019-11-26] MEDS: PANTOPRAZOLE 40MG TABLET PO SCH (08:05)
[2019-11-26] MEDS: INSULIN GLARGINE 100 UNITS/ML SQ SCH ×2 (08:06→21:10)
[2019-11-26] MEDS: ONDANSETRON 4 MG/2 ML VIAL IV PRN (12:04)
--- NOTE | 2019-11-26 13:36 | P.PN ---
Subjective Date of Service: 11/26/19 Chief Complaint: CELLULITIS OF THE RIGHT GROIN Subjective: Improving, Doing well Physical Examination - Vital Signs Temperature: 98 F Blood Pressure: 149/75 Pulse: 78 Respirations: 18 Pulse Ox (%): 95 - Physical Exam General: Alert, In no apparent distress HEENT: Atraumatic Neck: Supple Respiratory: Clear to auscultation bilaterally, Normal air movement Cardiovascular: Normal pulses, Regular rate/rhythm Gastrointestinal: Normal bowel sounds, No masses, No rebound, No guarding - Studies Medications List Reviewed: Yes Assessment & Plan Discharge Plan: Other (longterm facility versus home) Plan to discharge in: 24 Hours Physician Review Additional Text: Impression: Right groin cellulitis/abscess status post debridement Diabetes mellitus type 2 Hypertension Chronic wounds Diabetic neuropathy GERD Plan: Right groin cellulitis/abscess status post debridement: Patient cleared by surgery for discharge. Patient prefers to go to a skilled facility. Patient continues to work well with physical therapy and occupational therapy evaluate patient. Social work helping in in process to get patient approved for skilled placement. Patient will have to pay a co-pay. If the patient is not able to afford this patient will likely go home with home health and physical therapy. We will continue with Augmentin and doxycycline for 1 week. Continue wound care. Patient will need follow up with surgery. Diabetes mellitus type 2: Will monitor Accu-Cheks. Will provide sliding scale. Will continue to increase basal insulin for better control. Hypertension: Continue medications. Will monitor and adjust appropriately Chronic wounds: Will have wound care address wounds to the lower extremity. Diabetic neuropathy: Continue with medication. GERD: Continue with medication. Time Spent Managing Pts Care (In Minutes): 55
[2019-11-27] MEDS: HYDROMORPHONE HCL 0.5 MG/0.5 ML INJ IV PRN ×3 (03:57→13:02)
[2019-11-27] MEDS: INSULIN LISPRO 100 UNIT/1 ML SQ SCH ×2 (08:33→13:02)
[2019-11-27] MEDS: ONDANSETRON 4 MG/2 ML VIAL IV PRN (08:34)
[2019-11-27] MEDS: DOXYCYCLINE 100 MG CAP PO SCH (08:35)
[2019-11-27] MEDS: GABAPENTIN 400 MG CAP PO SCH ×2 (08:35→13:02)
[2019-11-27] MEDS: INSULIN GLARGINE 100 UNITS/ML SQ SCH (08:35)
[2019-11-27] MEDS: AMOX/K CLAV 875 MG TAB PO SCH (08:35)
[2019-11-27] MEDS: PANTOPRAZOLE 40MG TABLET PO SCH (08:35)
[2019-11-27] MEDS: ENOXAPARIN 40 MG/0.4 ML SQ SCH (08:36)
[2019-11-27 09:42] VITALS: O2SAT 94
--- NOTE | 2019-11-27 11:33 | P.DS ---
Admission Date: 11/22/19 Discharge Date: 11/27/19 Disposition: TRANSFER TO DETENTION Reason for Admission: CELLULITIS OF THE RIGHT GROIN - Problems (1) Abscess of right groin Current Visit: No Status: Acute (2) CVA (cerebral vascular accident) Onset Date: 06/28/16 Current Visit: No Status: Chronic Qualifiers: (3) Diabetes mellitus Onset Date: 06/03/16 Current Visit: No Status: Chronic Qualifiers: (4) Hyperlipidemia Current Visit: No Status: Chronic Qualifiers: (5) Hypertension Onset Date: 06/17/16 Current Visit: No Status: Chronic Qualifiers: Hypertension type: essential hypertension Brief History of Present Illness: History of Present Illness: PATIENT IS A 54-YEAR-OLD GENTLEMAN WHO CAME TO THE HOSPITAL WITH PAIN IN THE RIGHT GROIN REGION. PATIENT WAS RECENTLY TREATED FOR THE ABSCESS AND WITH I&D AND FOLLOWED UP AT THE DETENTION WITH IV ANTIBIOTICS. THESE WERE DISCONTINUED 48 HOURS AGO. THE PATIENT NOTICED SOME ERYTHEMA OVER THE LAST COUPLE OF DAYS THAT WAS NOT THERE WHILE PATIENT WAS ON THE ANTIBIOTICS. [facility] HAS PROGRESSED AND HE HAS ALSO HAD SOME ABDOMINAL PAIN. THE PAIN IS IN THE RIGHT GROIN REGION AND IS VERY TENDER. HIS PAIN MEDICATION IS NOT HELPING. HE CAME INTO THE ER FOR EVALUATION. IN THE ER HE HAD A CT SCAN OF THE ABDOMEN AND PELVIS AND ULTRASOUND WHICH HAS NOT REVEALED ANY PATHOLOGY. HE WILL BE ADMITTED FOR IV ANTIBIOTIC THERAPY AND SURGERY CONSULTATION. Allergies Hospital Course: Patient was admitted for recurrent right foot cellulitis with abscess. He was evaluated by surgery and had debridement of the absecss area over the right inguinal region . Post operatively he continued to have pain limiting his ambulation. His pain was controlled with Tylenol 3 and p.r.n. tramadol. Patient was continued on antibiotics with Augmentin and doxycycline for next 1 week from discharge . His blood culture did not yield any growth after 48 hr. Given this limitation of ambulation patient was felt he would benefit from SNF. Patient also have recurrent nausea typically post meal with intermittent abdominal cramps. Review of his previous record shows he has history of gastroparesis. He has been started on trial of Reglan with meals. Patient glucose level was mildly elevated on admission but improve with continuation of his basal insulin as well as sliding scalle Novolog Vital Signs/Physical Exam: Temp Pulse Resp BP Pulse Ox 97.4 F 76 19 119/72 95 11/27/19 08:00 11/27/19 08:00 11/27/19 09:06 11/27/19 08:00 11/27/19 09:06 General: Alert, In no apparent distress, Oriented x3 HEENT: Atraumatic, Normocephalic, PERRLA, Mucous membr. moist/pink Neck: 2+ carotid pulse no bruit, JVD not distended Respiratory: Clear to auscultation bilaterally, Normal air movement Cardiovascular: No edema, Normal pulses, Regular rate/rhythm Gastrointestinal: Normal bowel sounds, Soft and benign, Non-distended, No masses , No rebound Musculoskeletal: No clubbing, No swelling Integumentary: Skin lesion, Other (debrided granulating right inguinal area, dsg over ) Neurological: Normal speech, Normal strength at 5/5 x4 extr, Normal tone External genitalia: No edema Laboratory Data at Discharge: WBC 6.9 K/uL (4.3-10.9) 11/26/19 05:32 Hgb 13.9 g/dL (13.6-17.9) 11/26/19 05:32 Hct 42.1 % (39.6-49.0) 11/26/19 05:32 Plt Count 227 K/uL (152-406) 11/26/19 05:32 PT 10.7 SECONDS (9.5-12.5) 11/22/19 04:10 INR 0.90 11/22/19 04:10 Sodium 141 mmol/L (136-145) 11/24/19 05:49 Potassium 4.0 mmol/L (3.5-5.1) 11/24/19 05:49 BUN 15 mg/dL (7-18) 11/24/19 05:49 Creatinine 0.82 mg/dL (0.55-1.3) 11/24/19 05:49 Glucose 199 mg/dL (74-106) H 11/24/19 05:49 Magnesium 1.9 mg/dL (1.8-2.4) 11/22/19 04:10 Total Bilirubin 0.5 mg/dL (0.2-1.0) 11/24/19 05:49 AST 12 U/L (15-37) L 11/24/19 05:49 ALT 12 U/L (12-78) 11/24/19 05:49 Alkaline Phosphatase 99 U/L (45-117) 11/24/19 05:49 Lipase 84 U/L (73-393) 11/22/19 04:10 Home Medications: Gabapentin [Neurontin] 800 mg PO QID 12/27/16 Pravastatin Sodium [Pravachol] 20 mg PO DAILY 12/27/16 Zolpidem Tartrate [Ambien*] 5 mg PO BEDTIME PRN 12/29/17 Pantoprazole [Protonix Tab*] 40 mg PO DAILY 12/30/17 Promethazine HCl 25 mg PO Q4HP PRN 12/30/17 Insulin -Regular Human [Novolin -R*] See Protocol SQ ACHS ml 10/02/19 Insulin Glargine Human [Lantus*] 32 units SQ BID ml 10/02/19 Lisinopril [Zestril] 20 mg PO DAILY 11/22/19 Amox/Clavulanate [Augmentin 875-125 Tab*] 875 mg PO BID #14 tab 11/27/19 Codeine/APAP [Tylenol #3*] 1 tab PO Q6HP PRN #120 tab 11/27/19 Doxycycline Hyclate 100 mg PO BID #14 capsule 11/27/19 Metoclopramide HCl [Reglan] 5 mg PO TIDWM #15 tablet 11/27/19 New Medications: Amox/Clavulanate [Augmentin 875-125 Tab*] 875 mg PO BID #14 tab Codeine/APAP [Tylenol #3*] 1 tab PO Q6HP PRN #120 tab PRN Reason: Pain Doxycycline Hyclate 100 mg PO BID #14 capsule Metoclopramide HCl [Reglan] 5 mg PO TIDWM #15 tablet Patient Discharge Instructions: Will follow with plan for SNF today Diet: ADA Activity: Ad francisco j
[2019-11-27 13:33] VITALS: BP 158/84; TEMP 97.3
== END 2019-11-27 13:53 | DRG 572 ==
LOC: ER 02:48 → ERHOLD 07:27 → 2ND 16:38
PROVIDERS: ADMIT Hospitalist; ATTEND Hospitalist
PROC: 0JBC0ZZ Excision of Pelvic Region Subcutaneous Tissue and Fascia, Open Approach (ICD-10-PCS; principal; 2019-11-23 09:30)
DX: L03.314 Cellulitis of groin (principal); L02.214 Cutaneous abscess of groin; E78.5 Hyperlipidemia, unspecified; I10 Essential (primary) hypertension; E11.40 Type 2 diabetes mellitus with diabetic neuropathy, unspecified; K21.9 Gastro-esophageal reflux disease without esophagitis; Z86.73 Personal history of transient ischemic attack (TIA), and cerebral infarction without residual deficits
CPT/HCPCS: 36415; 71045; 74177; 76856; 80048; 80053; 80076; 80202; 81003; 81015; 82550; 82947; 83690; 83735; 83880; 84145; 84484; 85025; 85610; 87040; 88304; 93005; 96361; 96365; 96368; 96372; 96375; 97116; 97161; 97165; 97530; 99251; 99285; J0295; J1100; J1170; J1650; J1815; J2370; J2405; J2704; J3010; J7030; J7040; Q9967

== ENCOUNTER 2021-02-20 17:42 | Emergency (ER) | payer OTHER ==
[2021-02-20 18:15] LABS: Absolute Lymphocytes (CBC) 2.7 K/uL (0.7-4.9); Basophils % 1.3 % (0-1.3); Hematocrit 49.3 % (39.6-49.0); Lymphocytes % 33.4 % (15.3-44.8); MPV 9.5 fL (7.6-11.3); RBC Red Blood Cell Count 5.55 M/uL (4.33-5.43)
[2021-02-20 18:24] LABS: Protime INR 0.86
[2021-02-20] MEDS ORDERED: NA CHLORIDE 0.9% 1,000 ML ONE (18:24)
[2021-02-20] MEDS ORDERED: ONDANSETRON 4 MG/2 ML VIAL ONE ×2 (18:24→19:52)
--- NOTE | 2021-02-20 18:41 | RAD REPORT ---
EXAM DESCRIPTION: RAD - Chest Single View - 02/20/2021 6:29 pm CLINICAL HISTORY: DYSPNEA COMPARISON: Portable October 2019 TECHNIQUE: AP portable chest image was obtained 02/20/2021 6:29 pm . FINDINGS: Chronic lung base scarring or atelectasis noted. Low lung volumes noted on today's study. No new mass or consolidations seen. No significant failure or volume overload. Heart and vasculature are normal. No measurable pleural effusion and no pneumothorax. Rib detail is limited. No acute bone findings evident. Trachea is midline. No acute aortic findings suspected. IMPRESSION: Limited shallow inspiration film with chronic bilateral lung base scarring or atelectasi s. No significant change from comparison study.
[2021-02-20 18:43] LABS: ALT/SGPT 17 U/L (12-78); AST/SGOT 10 U/L (15-37); Albumin 2.9 g/dL (3.4-5.0); Alkaline Phosphatase 112 U/L (45-117); BUN Blood Urea Nitrogen 23 mg/dL (7-18); Bicarbonate 30 mmol/L (21-32); Bilirubin Direct < 0.1 mg/dL (0-0.2); Bilirubin Total 0.4 mg/dL (0.2-1.0); NT PRO-BNP 258 pg/mL (<125); Potassium 4.3 mmol/L (3.5-5.1); Protein, Total 7.5 g/dL (6.4-8.2); Sodium Level 137 mmol/L (136-145); Troponin (Emerg Dept Use Only) < 0.02 ng/mL (0.0-0.045)
[2021-02-20 18:46] LABS: Glucose Level 503 mg/dL (74-106)
[2021-02-20] MEDS ORDERED: INSULIN -REGULAR HUMAN 50 UNIT/0.5 ML ML ONE (19:30)
--- NOTE | 2021-02-20 19:36 | RAD REPORT ---
EXAM DESCRIPTION: CT - Head C Spine Cap W Con - 02/20/2021 6:52 pm CLINICAL HISTORY: fall injury;Numbness/tingling;Pain COMPARISON: Chest Single View dated 02/20/2021; Abdomen Pelvis W Contrast dated 11/22/2019 TECHNIQUE: Axial [address] head images were obtained. Axial [address] cervical spine images were obtaine d with sagittal and coronal reconstruction images reviewed. During dynamic enhancement of 100mL non-i onic contrast, axial 5 mm images of the chest, abdomen and pelvis were obtained. Biphasic technique p erformed of the abdomen and pelvis. All CT scans are performed using dose optimization technique as appropriate and may include automated exposure control or mA/KV adjustment according to patient size. FINDINGS: No intracranial hemorrhage, mass or edema. No midline shift or abnormal fluid collection. Mild volume loss changes are present but greater than typically seen for age. Advanced cerebral white matter disease is present given patient age. This extends into the thalamus and basal ganglia tissue s. Mastoid air cells and paranasal sinuses are clear. No skull fracture. Asymmetry is created by hea d tilt within the scanner. CT cervical spine imaging shows normal height. Normal AP alignment of the vertebrae. There is right l ateral tilt of the cervical spine muscle spasm or positioning artifact. No disc space narrowing. No p araspinal mass or hematoma seen. Central canal detail is inherently limited. Concerns for traumatic d isc herniation or traumatic cord injury can be further addressed with MR imaging. Prominent facet deg enerative change present at C4-5 right foraminal bony stenosis. Advanced facet degenerative change no cuate on the right at C5-[address] chest shows no pneumothorax, pulmonary contusion or pleural fluid collection. Lung volumes are low with lung base atelectasis present. No mediastinal hematoma and the aorta and pulmonary arteries are unremarkable. No chest will mass or abnormal axillary finding. No displaced rib fracture or other si gnificant bony finding in the chest. CT abdomen and pelvis show no injury to solid abdominal viscera. Liver shows a subtle nodular capsule contour. Gallbladder and biliary tree are unremarkable. No bowel injury or significant finding. No f ree air, free fluid or abnormal stranding. No urinary bladder abnormality. Patient has a large 8 cent imeter diameter supraumbilical hernia. Neck of the hernia is 4 cm. No congestion or edema. Hernia con tains only fatty tissue. Dense arterial tree calcifications are present. No aortic aneurysm. Partial wedge compression of T12 has not changed from the CT study. There is now approximately 30% co mpression fracture deformity of the L1 body. Posterior wall height is preserved. Degenerative changes are seen along the inferior endplate similar to the comparison study. Degenerative gas is present in the disc space between T12 and L1. This is progressive from the prior study. Gas is present in the s uperior aspect of the vertebral body probably extending through defects in the superior endplate. Ambrocio tebral body shows an overall increase in density. No expansile change. The density changes do not ext end into the pedicles. No other vertebral body showing similar characteristics. IMPRESSION: No hemorrhage, edema or acute intracranial finding. Patient has atrophy and advanced cer ebral white matter chronic ischemic change greater than typically seen for this age. No acute CT Cervical Spine finding. No significant CT Chest finding. No significant CT Abdomen and Pelvis finding. Appearance of the liver could indicate diffuse hepatic parenchymal disease. A large fat only ventral supraumbilical hernia present. Partial compression fracture of the L1 body with T12-L1 degenerative disc change. Degenerative gas ex tends to the superior endplate into the L1 vertebral body. Sclerosis or increased bone density is pre sent in L1. Approximately 30% wedge compression deformity of the L1 body with posterior wall height preserved. Ch anges may represent acute and subacute posttraumatic changes to the vertebral body that occurred over multiple occasions. Discitis/osteomyelitis or neoplastic etiologies are not excluded but no specific findings elevate probability of those etiologies. Correlation can be made with any supporting histor y or clinical findings.
[2021-02-20] MEDS ORDERED: MORPHINE 4 MG/ML SYR ONE ×2 (19:52→23:13)
[2021-02-20] MEDS ORDERED: PROMETHAZINE INJ 25 MG/ML AMP ONE (20:36)
[2021-02-20 21:14] LABS: Fluid Total Volume 5.5 ml
[2021-02-20 21:26] LABS: CSF Glucose 260 mg/dL (40-70)
[2021-02-20 21:46] LABS: Appearance CLEAR (CLEAR); Body Fluid Source CSF; Color of fluid Colorless (COLORLESS)
[2021-02-20 21:56] LABS: Body Fluid WBC 5 /mm^3
[2021-02-20 22:38] LABS: Appearance CLEAR (CLEAR); Body Fluid Source CSF; Body Fluid WBC 1 /mm^3; Color of fluid Colorless (COLORLESS)
--- NOTE | 2021-02-20 23:50 | ER ---
Nurse's Notes [facility] Name: Jordan Flaherty Age: 55 yrs Sex: Male : 1965 Arrival Date: 02/20/2021 Time: 17:44 Bed 7 Private MD: Diagnosis: Syncope and collapse;Wedge compression fracture of first lumbar vertebra;Ataxic gait;Weakness;Vertigo of central origin Presentation: 02/20 17:58 Chief complaint: Patient states: Pt states that he has pain on right sided of head and kg blurred vision on right eye, pain on right side and numbness to BLE starting yesterday morning. Pt also reports multiple falls in the last two days. EMS stated blood glucose was 600 on scene. Coronavirus screen: Client denies travel out of the [place] in the last 14 days. Ebola Screen: Patient negative for fever greater than or equal to 101.5 degrees Fahrenheit, and additional compatible Ebola Virus Disease symptoms. Initial Sepsis Screen: Does the patient meet any 2 criteria? No. Patient's initial sepsis screen is negative. Does the patient have a suspected source of infection? No. Patient's initial sepsis screen is negative. Risk Assessment: Do you want to hurt yourself or someone else? Patient reports no desire to harm self or others. Onset of symptoms was February 19, 2021 at 08:00. 17:58 Method Of Arrival: EMS: [facility] kg 17:58 Acuity: MALACHI 3 kg Historical: - PMHx: 18:25 Diabetes - IDDM; Gastroparesis; Hyperlipidemia; Hypertension; TIA; kg - PSHx: 18:25 staff removed from back of neck, somach, and over the eye; kg - Immunization history:: Adult Immunizations up to date, Client reports receiving the 2nd dose of the Covid vaccine, Client reports receiving the 1st dose of the Covid vaccine, Flu vaccine is up to date. - Social history:: Smoking status: Patient denies any tobacco usage or history of. Screenin:23 Abuse screen: Denies threats or abuse. Nutritional screening: No deficits noted. kg Tuberculosis screening: No symptoms or risk factors identified. Fall Risk Fall in past 12 months (25 points). Secondary diagnosis (15 points) TIA, IV access (20 points). Ambulatory Aid- Crutches/Cane/Walker (15 pts). Gait- Weak (10 pts.). Mental Status- Oriented to own ability (0 pts). Total Enciso Fall Scale indicates High Risk Score (45 or more points). Fall prevention measures have been instituted. Side Rails Up X 2 Placed Close to Nursing Station Frequent Obs/Assessments Occuring Family Present and informed to notify staff if the need to leave the bedside As available patient and family educated on Fall Prevention Program and Strategies. Assessment: 18:04 General: Appears distressed, Behavior is cooperative, anxious, restless. Pain: kg Complains of pain in top of head, forehead, right moravian, right temporal area, right side of forehead and right eye Right side of body and generalized. Pain: Pain currently is 9 out of 10 on a pain scale. at worst was 9 out of 10 on a pain scale. level that patient reports is acceptable is 3 out of 10 on a pain scale. Quality of pain is described as burning, sharp, stabbing, Pain began 1 day ago. Is continuous. Neuro: Level of Consciousness is awake, alert, obeys commands, Oriented to person, place, time, situation, Underwriting Operations Manager are equal bilaterally Moves all extremities. Paresis in bilateral leg(s) foot/feet Speech is normal. Cardiovascular: No deficits noted. Respiratory: No deficits noted. GI: No deficits noted. : No deficits noted. EENT: No deficits noted. Derm: No deficits noted. Musculoskeletal: No deficits noted. 19:00 Reassessment: Patient appears in no apparent distress at this time. Patient and/or ca1 family updated on plan of care and expected duration. Pain level reassessed. Patient is alert, oriented x 3, equal unlabored respirations, skin warm/dry/pink. 20:11 Reassessment: Patient appears in no apparent distress at this time. No changes from ca1 previously documented assessment. Patient is alert, oriented x 3, equal unlabored respirations, skin warm/dry/pink. 21:12 Reassessment: Patient appears in no apparent distress at this time. No changes from ca1 previously documented assessment. Patient is alert, oriented x 3, equal unlabored respirations, skin warm/dry/pink. 22:50 Reassessment: Patient appears in no apparent distress at this time. Patient reports lp1 pain to right side of face, burning sensation, discomfort to right side of body; Provider notified. Neuro: Level of Consciousness is awake, alert, obeys commands, Oriented to person, place, situation. Respiratory: Respiratory effort is even, unlabored. Derm: Skin is intact, Skin is dry, Skin is normal. 22:52 Reassessment: Verbal order from Provider for Morphine 4mg IV now. lp1 23:24 Reassessment: Provider at bedside to discuss plan of care with patient and . lp1 23:48 Reassessment: Report called to Nica MORENO at [facility]. ea 02/21 00:48 Reassessment: Patient and/or family updated on plan of care and expected duration. Pain ea level reassessed. Patient is alert, oriented x 3, equal unlabored respirations, skin warm/dry/pink. [facility] for [facility]fer, pt left ED via stretcher tolerating well. Vital Signs: 02/20 17:58 BP 152 / 100; Pulse 72; Resp 20; Temp 98.2(O); Pulse Ox 95% on R/A; Weight 99.79 kg; kg Height 6 ft. 0 in. (182.88 cm); Pain 9/10; 18:23 BP 127 / 81; Pulse 71; Resp 20; Pulse Ox 93% ; Pain 9/10; kg 19:00 BP 157 / 98; Pulse 80; Resp 20; Pulse Ox 97% on R/A; ca1 20:00 BP 143 / 101; Pulse 80; Resp 20; Pulse Ox 95% on R/A; ca1 21:12 BP 134 / 88; Pulse 75; Resp 21 S; Pulse Ox 95% on R/A; ca1 23:54 BP 119 / 76; Pulse 74; Resp 18; Temp 97.9(O); Pulse Ox 98% on R/A; ea 02/21 00:45 BP 125 / 76; Pulse 80; Resp 18; Temp 98; Pulse Ox 98% ; ea 02/20 17:58 Body Mass Index 29.84 (99.79 kg, 182.88 cm) kg NIH Stroke Scale Scores: 02/20 19:00 NIHSS Score: 17 kg ED Course: 17:44 Patient arrived in ED. ss 17:54 Reese Blandon PA is PHCP. jr8 17:54 Bhaskar Connors MD is Attending Physician. jr8 17:57 Susan Fontaine is Primary Nurse. kg 17:57 Protime (+INR) Sent. 5 17:57 Troponin (Emerg Dept Use Only) Sent. mh5 17:57 Magnesium Sent. 5 17:57 NT PRO-BNP Sent. 5 17:57 Liver (Hepatic) Function Sent. mh5 17:57 Basic Metabolic Panel Sent. 5 17:57 CBC with Automated Diff Sent. 5 17:58 Ketone, Serum Sent. 5 17:58 Basic Metabolic Panel Sent. 5 17:58 CBC with Diff Sent. 5 17:58 LFT's Sent. 5 17:58 Magnesium Sent. 5 17:58 NT PRO-BNP Sent. 5 17:59 Initial lab(s) drawn, by me, sent to lab. EKG done, by ED staff, reviewed by Reese ODEN. Inserted saline lock: 20 gauge in left antecubital area, using aseptic technique. Blood collected. 17:59 Patient has correct armband on for positive identification. Placed in gown. Bed in low mh5 position. Call light in reach. Side rails up X2. Adult w/ patient. Warm blanket given. administrative technician on. Pulse ox on. NIBP on. 18:03 Triage completed. kg 18:26 Arm band placed on left wrist. kg 18:29 XRAY Chest (1 view) In Process Unspecified. EDMS 18:51 CT Traumagram (Head C Spine CAP W Con) In Process Unspecified. EDMS 20:07 Initial lab(s) drawn, by me, sent to lab. First set of blood cultures drawn by me. ca1 20:10 CRP Sent. ca1 20:11 ESR Sent. ca1 20:40 Assist provider with lumbar puncture: Set up LP tray. Performed by Reese ODEN CSF ca1 is clear. Sample collected. Sample sent to lab. Puncture site dressed with band aid, Procedure was successful. Patient tolerated well. 22:[address] [facility] with Elisa Whelan. Stated she would work on the case tt3 and call back shortly. 22:51 Elisa Whelan called back and stated that they would have to decline the transfer due tt3 to being at capacity per the warehouse order filler. Information passed on to Aimee Davis RN, Charge Nurse. 22:54 Initiated transfer at [facility] with Beatriz Brantley. Stated she would do a capacity check tt3 and call back. 23:07 Beatriz Brantley from [facility] called back with their neurologist to do a Doc to Doc consult tt3 with CECILLE Vora, pt provider, regarding the transfer request. 23:16 Beatriz Brantley gave admin approval. The accepting physician is Dr. Rodgers. Dr. Rodgers tt3 accepted at 2305. The pt is going to [facility] . Nurse to call report to . Face sheet to be faxed to [phone]. 02/21 00:48 Patient transferred, IV remains in place. ea Administered Medications: 02/20 18:10 Drug: NS 0.9% 1000 ml Route: IV; Rate: 1000 ml; Site: left antecubital; ca1 19:30 Follow up: Response: No adverse reaction; IV Status: Completed infusion; IV Intake: ca1 1000ml 18:11 Drug: Zofran (Ondansetron) 4 mg Route: IVP; Site: left antecubital; ca1 20:21 Follow up: Response: No adverse reaction; Nausea unchanged ca1 19:18 Drug: Insulin Regular Human 10 units {Co-Signature: ravindra (Mago Zhu RN).} Route: IVP; ca1 Site: left antecubital; 19:38 Drug: morphine 4 mg Route: IVP; Site: left antecubital; kg 20:22 Follow up: Response: No adverse reaction; Pain is decreased; RASS: Restless (+1) ca1 19:38 Drug: Zofran (Ondansetron) 4 mg Route: IVP; Site: left antecubital; kg 20:22 Follow up: Response: No adverse reaction; Nausea is decreased ca1 20:21 Drug: Phenergan (promethazine) 12.5 mg Route: IVP; Site: left antecubital; ca1 22:58 Drug: morphine 4 mg {Note: RASS 0.} Route: IVP; Site: left antecubital; lp1 Intake: 19:30 IV: 1000ml; Total: 1000ml. ca1 Outcome: 23:49 ER care complete, transfer ordered by MD. river 02/21 00:47 Transferred by ground EMS to [facility], Transfer form ea completed. Condition: stable Instructed on the need for transfer, Demonstrated understanding of instructions. 00:50 Patient left the ED. ravindra NIH Stroke Scale - NIH Stroke Score Date: 02/20/2021 Time: 19:00 Total Score = 17 1a. Level of Consciousness (LOC) - 0(Alert) 1b. Level of Consciousness (LOC) (Year \T\ Age) - 1(One) 1c. LOC Commands (Open \T\ Closes Eyes/Auto [place] Driver) - 0(Both) 2. Best Gaze (Lateral Gaze Paresis) - 0(Normal) 3. Visual Field Loss - 1(Partial hemianopia) 4. Facial Palsy - 2(Partial paralysis) 5a. Left Arm: Motor (10-second hold) - 0(No drift) 5b. Right Arm: Motor (10-second hold) - 0(No drift) 6a. Left Leg: Motor (5-second hold - always test supine) - 3(No effort against gravity) 6b. Right Leg: Motor (5-second hold - always test supine) - 3(No effort against gravity) 7. Limb Ataxia (finger/nose \T\ heel/guerra - test with eyes open) - 2(Present in two limbs) 8. Sensory Loss (pinprick arms/legs/face) - 2(Severe to total loss) 9. Best Language: Aphasia (description/naming/reading) - 1(Mild to moderate aphasia) 10. Dysarthria (speech clarity - read or repeat words) - 1(Mild to Moderate) 11. Extinction and Inattention (visual/tactile/auditory/spatial/personal) - 1(Present) Initials: kg Signatures: Dispatcher [employer] EDMS Ana Hernandez RN RN ss Pena, Laura, RN RN lp1 Reese Blandon PA PA [facility] Rhonda Aguero Mago Rodriguez RN RN ea Acob, Cheryl, RN RN ca1 Gulshan Stanford tt3 Susan Fontaine kg Mago Zhu RN, ea Corrections: (The following items were deleted from the chart) 02/20 20:41 20:10 No provider procedures requiring assistance completed. ca1 ca1 23:24 22:54 Initiated transfer at [facility] with Courtney Brantley. Stated she would do a tt3 capacity check and call back. tt3 23:24 23:07 Courtneyshyla Brantley from [facility] called back with their neurologist to do a Doc tt3 to Doc consult with CECILLE Vora, pt provider, regarding the transfer request. tt3
--- NOTE | 2021-02-20 23:50 | EDPHYS ---
Physician Documentation [facility] Name: Jordan Flaherty Age: 55 yrs Sex: Male : 1965 Arrival Date: 02/20/2021 Time: 17:44 Bed 7 Private MD: ED Physician Bhaskar Connors HPI: 02/20 18:05 This 55 yrs old Male presents to ER via EMS with complaints of weakness. jr8 18:05 Onset: The symptoms/episode began/occurred acutely, yesterday. Severity of symptoms: At jr8 their worst the symptoms were moderate in the emergency department the symptoms are unchanged. The patient has not experienced similar symptoms in the past. The patient has not recently seen a physician. 18:33 Patient stated that he felt fine yesterday until after using the bathroom. Bent down jr8 and passed out. Since then has had headache, right face pain, tingling to both arms, weakness of both legs, and numbness to both legs. Historical: - PMHx: 18:25 Diabetes - IDDM; Gastroparesis; Hyperlipidemia; Hypertension; TIA; kg - PSHx: 18:25 staff removed from back of neck, somach, and over the eye; kg - Immunization history:: Adult Immunizations up to date, Client reports receiving the 2nd dose of the Covid vaccine, Client reports receiving the 1st dose of the Covid vaccine, Flu vaccine is up to date. - Social history:: Smoking status: Patient denies any tobacco usage or history of. ROS: 18:34 Eyes: Negative for injury, pain, redness, and discharge, ENT: Negative for injury, jr8 pain, and discharge, Neck: Negative for injury, pain, and swelling, Cardiovascular: Negative for chest pain, palpitations, and edema, Respiratory: Negative for shortness of breath, cough, wheezing, and pleuritic chest pain, Abdomen/GI: Negative for abdominal pain, nausea, vomiting, diarrhea, and constipation, Back: Negative for injury and pain, MS/Extremity: Negative for injury and deformity, Skin: Negative for injury, rash, and discoloration. 18:34 Neuro: Positive for gait disturbance, headache, numbness, syncope, tingling, visual changes, weakness. Exam: 18:34 Head/Face: Normocephalic, atraumatic. Eyes: Pupils equal round and reactive to light, jr8 extra-ocular motions intact. Lids and lashes normal. Conjunctiva and sclera are non-icteric and not injected. Cornea within normal limits. Periorbital areas with no swelling, redness, or edema. ENT: Nares patent. No nasal discharge, no septal abnormalities noted. Tympanic membranes are normal and external auditory canals are clear. Oropharynx with no redness, swelling, or masses, exudates, or evidence of obstruction, uvula midline. Mucous membranes moist. Neck: Trachea midline, no thyromegaly or masses palpated, and no cervical lymphadenopathy. Supple, full range of motion without nuchal rigidity, or vertebral point tenderness. No Meningismus. Chest/axilla: Normal chest wall appearance and motion. Nontender with no deformity. No lesions are appreciated. Cardiovascular: Regular rate and rhythm with a normal S1 and S2. No gallops, murmurs, or rubs. Normal PMI, no JVD. No pulse deficits. Respiratory: Lungs have equal breath sounds bilaterally, clear to auscultation and percussion. No rales, rhonchi or wheezes noted. No increased work of breathing, no retractions or nasal flaring. Abdomen/GI: Soft, non-tender, with normal bowel sounds. No distension or tympany. No guarding or rebound. No evidence of tenderness throughout. Back: No spinal tenderness. No costovertebral tenderness. Full range of motion. Skin: Warm, dry with normal turgor. Normal color with no rashes, no lesions, and no evidence of cellulitis. 18:34 Musculoskeletal/extremity: Exam is negative for edema, injury, pain, tenderness, ROM: limited passive range of motion, in the right leg and left leg, the right leg and left leg numbness, decreased sensation. 18:34 Neuro: Orientation: to person, place, time \T\ situation. Mentation: is normal, Memory: is normal, immediate memory is intact, recent memory is intact, remote memory is intact, Cranial nerves: CN I not tested, CN II- XII are normal as tested, visual collins are intact. extraocular movements are intact, Facial palsy and sensory deficits are absent. Nystagmus with fast component in right eye. Vertical nystagmus in right eye and left eye. Speech is clear and appropriate. Tongue strength is normal, Cerebellar function: dysmetria is noted on both sides, the patient is unable to track heel to guerra on both sides, Motor: strength is 5/5 in the right arm and left arm, Strength is 2/5 in the right leg and left leg, Sensation: pin prick is decreased in the right foot, left foot, right leg and left leg, wast to umbilicus , Gait: not tested. no illicite response bilaterally , seizure activity, is not displayed by the patient, Abnormal movements: there are no abnormal movements. Vital Signs: 17:58 BP 152 / 100; Pulse 72; Resp 20; Temp 98.2(O); Pulse Ox 95% on R/A; Weight 99.79 kg; kg Height 6 ft. 0 in. (182.88 cm); Pain 9/10; 18:23 BP 127 / 81; Pulse 71; Resp 20; Pulse Ox 93% ; Pain 9/10; kg 19:00 BP 157 / 98; Pulse 80; Resp 20; Pulse Ox 97% on R/A; ca1 20:00 BP 143 / 101; Pulse 80; Resp 20; Pulse Ox 95% on R/A; ca1 21:12 BP 134 / 88; Pulse 75; Resp 21 S; Pulse Ox 95% on R/A; ca1 23:54 BP 119 / 76; Pulse 74; Resp 18; Temp 97.9(O); Pulse Ox 98% on R/A; ea 02/21 00:45 BP 125 / 76; Pulse 80; Resp 18; Temp 98; Pulse Ox 98% ; ea 02/20 17:58 Body Mass Index 29.84 (99.79 kg, 182.88 cm) kg NIH Stroke Scale Scores: 02/20 19:00 NIHSS Score: 17 kg Procedures: 23:00 Lumbar Puncture: Patient placed in sitting position. Prepped with Betadine. Draped jr8 using sterile technique. Collected 8 ml's of clear fluid. Sample sent to lab. Puncture site dressed with band aid, Patient tolerated well. Patient supine post procedure for 45 min. MDM: 17:54 Patient medically screened. jr8 23:43 Data reviewed: vital signs, nurses notes, lab test result(s), EKG, radiologic studies, jr8 CT scan, plain films. Data interpreted: Pulse oximetry: on room air is 95 %. Interpretation: normal. Counseling: I had a detailed discussion with the patient and/or guardian regarding: the historical points, exam findings, and any diagnostic results supporting the discharge/admit diagnosis, lab results, radiology results, the need to transfer to another facility, [facility] does not immediately have the required specialist. ED course: Dr. Rodgers at [facility] consulted after [facility] declined for capacity. Dr. Rodgers accepted to neurotelemetry unit . 02/20 17:54 Order name: Basic Metabolic Panel [facility] 02/20 17:54 Order name: CBC with Diff [facility] 02/20 17:54 Order name: LFT's [facility] 02/20 17:54 Order name: Magnesium [facility] 02/20 17:54 Order name: NT PRO-BNP [facility] 02/20 17:54 Order name: PT-INR [facility] 02/20 17:54 Order name: Troponin (emerg Dept Use Only) [facility] 02/20 17:54 Order name: Ketone, Serum; Complete Time: 18:47 [facility] 02/20 17:55 Order name: Basic Metabolic Panel; Complete Time: 18:47 EDMS 02/20 17:55 Order name: CBC with Automated Diff; Complete Time: 18:33 EDTX 02/20 17:55 Order name: Liver (Hepatic) Function; Complete Time: 18:47 EDMS 02/20 17:55 Order name: Magnesium; Complete Time: 18:47 EDMS 02/20 17:55 Order name: NT PRO-BNP; Complete Time: 18:47 EDMS 02/20 17:55 Order name: Protime (+INR); Complete Time: 18:34 EDMS 02/20 17:54 Order name: XRAY Chest (1 view); Complete Time: 18:42 [facility] 02/20 17:55 Order name: Troponin (Emerg Dept Use Only); Complete Time: 18:47 EDMS 02/20 17:59 Order name: Glucose, Ancillary Testing; Complete Time: 18:05 EDMS 02/20 19:29 Order name: Glucose, Ancillary Testing; Complete Time: 19:33 EDMS 02/20 19:46 Order name: Blood Culture Adult (2) [facility] 02/20 19:46 Order name: Procalcitonin; Complete Time: 21:40 [facility] 02/20 19:46 Order name: ESR; Complete Time: 21:13 [facility] 02/20 19:46 Order name: CRP; Complete Time: 20:41 la1 02/20 20:39 Order name: Csf Culture 02/20 20:39 Order name: Fluid Cell Count,Body; Complete Time: 22:59 02/20 20:39 Order name: Spinal Fluid Profile; Complete Time: 22:24 02/20 21:27 Order name: Glucose, Ancillary Testing; Complete Time: 21:28 EDMS 02/20 21:27 Order name: SARS-COV-2 RT PCR; Complete Time: 21:28 EDMS 02/20 22:59 Order name: Glucose, Ancillary Testing; Complete Time: 23:00 EDMS 02/20 17:54 Order name: EKG; Complete Time: 17:56 02/20 17:54 Order name: Cardiac monitoring; Complete Time: 17:58 02/20 17:54 Order name: EKG - Nurse/Tech; Complete Time: 17:59 02/20 17:54 Order name: IV Saline Lock; Complete Time: 17:59 02/20 17:54 Order name: Labs collected and sent; Complete Time: 18:03 02/20 17:54 Order name: O2 Per Protocol; Complete Time: 18:03 02/20 17:54 Order name: O2 Sat Monitoring; Complete Time: 18:03 02/20 17:54 Order name: CT Traumagram (Head C Spine CAP W Con); Complete Time: 19:39 jr8 Administered Medications: 18:10 Drug: NS 0.9% 1000 ml Route: IV; Rate: 1000 ml; Site: left antecubital; ca1 19:30 Follow up: Response: No adverse reaction; IV Status: Completed infusion; IV Intake: ca1 1000ml 18:11 Drug: Zofran (Ondansetron) 4 mg Route: IVP; Site: left antecubital; ca1 20:21 Follow up: Response: No adverse reaction; Nausea unchanged ca1 19:18 Drug: Insulin Regular Human 10 units {Co-Signature: ravindra (Mago Zuh RN).} Route: IVP; ca1 Site: left antecubital; 19:38 Drug: morphine 4 mg Route: IVP; Site: left antecubital; kg 20:22 Follow up: Response: No adverse reaction; Pain is decreased; RASS: Restless (+1) ca1 19:38 Drug: Zofran (Ondansetron) 4 mg Route: IVP; Site: left antecubital; kg 20:22 Follow up: Response: No adverse reaction; Nausea is decreased ca1 20:21 Drug: Phenergan (promethazine) 12.5 mg Route: IVP; Site: left antecubital; ca1 22:58 Drug: morphine 4 mg {Note: RASS 0.} Route: IVP; Site: left antecubital; lp1 Disposition: 02/20/21 23:49 Transfer ordered to [facility]-System. Diagnosis are Syncope and collapse, Wedge compression fracture of first lumbar vertebra, Ataxic gait, Weakness, Vertigo of central origin. - Reason for transfer: Higher level of care. - Accepting physician is Dr. Rodgers. - Condition is Fair. - Problem is new. - Symptoms are unchanged. NIH Stroke Scale - NIH Stroke Score Date: 02/20/2021 Time: 19:00 Total Score = 17 1a. Level of Consciousness (LOC) - 0(Alert) 1b. Level of Consciousness (LOC) (Year \T\ Age) - 1(One) 1c. LOC Commands (Open \T\ Closes Eyes/Director Of Broadcast) - 0(Both) 2. Best Gaze (Lateral Gaze Paresis) - 0(Normal) 3. Visual Field Loss - 1(Partial hemianopia) 4. Facial Palsy - 2(Partial paralysis) 5a. Left Arm: Motor (10-second hold) - 0(No drift) 5b. Right Arm: Motor (10-second hold) - 0(No drift) 6a. Left Leg: Motor (5-second hold - always test supine) - 3(No effort against gravity) 6b. Right Leg: Motor (5-second hold - always test supine) - 3(No effort against gravity) 7. Limb Ataxia (finger/nose \T\ heel/guerra - test with eyes open) - 2(Present in two limbs) 8. Sensory Loss (pinprick arms/legs/face) - 2(Severe to total loss) 9. Best Language: Aphasia (description/naming/reading) - 1(Mild to moderate aphasia) 10. Dysarthria (speech clarity - read or repeat words) - 1(Mild to Moderate) 11. Extinction and Inattention (visual/tactile/auditory/spatial/personal) - 1(Present) Initials: kg Addendum: 02/22/2021 19:58 Co-signature as Attending Physician, Bhaskar Connors MD. rn Signatures: Dispatcher [employer] EDTX Bhaskar Connors MD MD rn Pena, Laura, RN TIFFANIE lp1 Reese Blandon, CECILLE ODEN jr8 Cornell, Vishal, APPLICATION PENETRATION TESTER-C APPLICATION PENETRATION TESTER-Cla1 Mago Zuh RN RN ea Acob, Cheryl, RN RN ca1 Susan Fontaine kg Mago Zhu RN, ea Corrections: (The following items were deleted from the chart) 02/20 20:40 20:24 CORONAVIRUS+ ordered. EDTX EDMS 21:15 18:34 Neuro: Orientation: to person, place, time \T\ situation. Mentation: is jr8 normal, Memory: is normal, immediate memory is intact, recent memory is intact, remote memory is intact, Cranial nerves: CN I not tested, CN II- XII are normal as tested, visual collins are intact. extraocular movements are intact, Speech is clear and appropriate. Tongue strength is normal, Motor: strength is 5/5 in the right arm and left arm, Strength is 2/5 in the right leg and left leg, Sensation: pin prick is decreased in the right foot, left foot, right leg and left leg, wast to umbilicus , seizure activity, is not displayed by the patient, Abnormal movements: there are no abnormal movements, jr8 23:43 18:34 Neuro: Orientation: to person, place, time \T\ situation. Mentation: is jr8 normal, Memory: is normal, immediate memory is intact, recent memory is intact, remote memory is intact, Cranial nerves: CN I not tested, CN II- XII are normal as tested, visual collins are intact. extraocular movements are intact, Facial palsy and sensory deficits are absent. Nystagmus with fast component in right eye. Vertical nystagmus in right eye and left eye. Speech is clear and appropriate. Tongue strength is normal, Cerebellar function: is grossly normal, Motor: strength is 5/5 in the right arm and left arm, Strength is 2/5 in the right leg and left leg, Sensation: pin prick is decreased in the right foot, left foot, right leg and left leg, wast to umbilicus , Gait: not tested. no illicite response bilaterally , seizure activity, is not displayed by the patient, Abnormal movements: there are no abnormal movements, jr8 02/21 00:50 02/20 23:49 02/20/2021 23:49 Transfer ordered to [facility]. Diagnosis is ea Syncope and collapse; Wedge compression fracture of first lumbar vertebra; Ataxic gait; Weakness; Vertigo of central origin. Reason for transfer: Higher level of care. Accepting physician is Dr. Rodgers. Condition is Fair. Problem is new. Symptoms are unchanged. jr8
[2021-02-21 01:10] VITALS: O2SAT 98
[2021-02-21 01:11] VITALS: BP 125/76; TEMP 98
--- NOTE | 2021-02-22 09:22 | EKG ---
Test Date: 2021-02-20 Test Time: 17:56:51 [employer] Professional: ENRIQUE MEASUREMENT RESULTS: Intervals: Rate: 78 TX: 196 QRSD: 108 QT: 406 QTc: 462 [place]: P: 55 TX: 196 QRS: 106 T: 63 INTERPRETIVE STATEMENTS: Normal sinus rhythm Rightward axis Possible Anterior infarct, age undetermined Abnormal ECG Compared to ECG 11/22/2019 04:15:11 Right-axis deviation now present Myocardial infarct finding still present Electronically Signed On 02-22-21 09:17:34 CDT by Franc Esteban
== END 2021-02-21 00:50 | disposition short-term general hospital (02) ==
LOC: ER 17:42
DX: R55 Syncope and collapse (principal); R53.1 Weakness; M48.56XA Collapsed vertebra, not elsewhere classified, lumbar region, initial encounter for fracture; R27.0 Ataxia, unspecified; H81.4 Vertigo of central origin; E11.43 Type 2 diabetes mellitus with diabetic autonomic (poly)neuropathy; K31.84 Gastroparesis; Z20.822 Contact with and (suspected) exposure to COVID-19; E78.5 Hyperlipidemia, unspecified; I10 Essential (primary) hypertension; Z86.73 Personal history of transient ischemic attack (TIA), and cerebral infarction without residual deficits; Z79.4 Long term (current) use of insulin
CPT/HCPCS: 96361; 93005; 87040 ×2; 87070; 85025; 80048; 36415; 82010; 89050 ×2; 83735; 87205; 84157; 85610; 82565; 82945; 82947 ×4; 80076; 85652; 84484; 84145; 83880; 86140; 70450; 72125; 71260; 74177; 71045; 62270; 96375; 96374; 99285; U0003; Q9967; J2550; J7030; J2405 ×2

== ENCOUNTER 2021-07-10 15:20 | Emergency (ER) | payer OTHER ==
[2021-07-10 16:25] LABS: Absolute Lymphocytes (CBC) 1.9 K/uL (0.7-4.9); Basophils % 1.2 % (0-1.3); MPV 9.1 fL (7.6-11.3)
[2021-07-10 16:36] LABS: Protime INR 0.97
[2021-07-10] MEDS ORDERED: LORAZEPAM 1 MG TABLET ONE (16:43)
--- NOTE | 2021-07-10 17:08 | RAD REPORT ---
EXAM DESCRIPTION: CT - Head Brain Wo Cont - 07/10/2021 4:36 pm CLINICAL HISTORY: VISUAL DISTURBANCES COMPARISON: CT head February 20, 2021 TECHNIQUE: Axial 5 mm thick images of the head were obtained without IV contrast. All CT scans are performed using dose optimization technique as appropriate and may include automated exposure control or mA/KV adjustment according to patient size. FINDINGS: No intracranial hemorrhage is present. No mass, edema or shift of midline structures. A 3 centimeter area of diminished attenuation is present in the medial left occipital lobe. This is acute or subacute nonhemorrhagic CVA is large enough to explain visual deficits in each, probably a left h omonymous hemianopia. No other acute cortical based infarction. Volume loss changes are present great er than typically seen at this age. Ventricles are in proportion. Patient has very advanced chronic i schemic pattern throughout the cerebral white matter. This could easily mask other areas of nonhemorr hagic CVA. Mastoid air cells and visualized portions of the paranasal sinuses are clear. No acute bony findings. IMPRESSION: Medial left occipital lobe acute to subacute nonhemorrhagic CVA. 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 No intracranial hemorrhage or mass lesion. Patient has very advanced chronic ischemic pattern throughout the cerebral white matter including the right occipital lobe. The right occipital lobe pattern could contribute to further visual field defi cits. The overall chronic ischemic pattern could mask additional areas of nonhemorrhagic CVA.
--- NOTE | 2021-07-10 18:09 | ER ---
Nurse's Notes [facility] Name: Jordan Flaherty Age: 56 yrs Sex: Male : 1965 Arrival Date: 07/10/2021 Time: 15:21 Bed 15 Private MD: Mauro Herrera T Diagnosis: Acute/subacute nonhemorrhagic occipital stroke with visual deficits involving the entire OS visual field and the lateral aspect of the OD right visual field Presentation: 07/10 15:27 Chief complaint: Patient states: loss of vision to left eye and slight blurry vision to aa5 right eye x 2 days ago. Pt states he had a CVA a "few months ago". Pt states "my left eye is completely black and my right eye I can see a little bit and it's blurry". Coronavirus screen: At this time, the client does not indicate any symptoms associated with coronavirus-19. Ebola Screen: Patient negative for fever greater than or equal to 101.5 degrees Fahrenheit, and additional compatible Ebola Virus Disease symptoms. Initial Sepsis Screen: Does the patient meet any 2 criteria? No. Patient's initial sepsis screen is negative. Does the patient have a suspected source of infection? No. Patient's initial sepsis screen is negative. Risk Assessment: Do you want to hurt yourself or someone else? Patient reports no desire to harm self or others. Onset of symptoms was June 2021. 15:27 Method Of Arrival: Wheelchair aa5 15:27 Acuity: MALACHI 2 aa5 Historical: - Allergies: 15:35 No Known Allergies; aa5 - PMHx: 15:35 Diabetes - IDDM; Gastroparesis; Hyperlipidemia; Hypertension; TIA; aa5 - Immunization history:: Client reports receiving the 2nd dose of the Covid vaccine. - Social history:: Smoking status: Patient denies any tobacco usage or history of. Screenin:00 Abuse screen: Denies threats or abuse. Nutritional screening: No deficits noted. oh Tuberculosis screening: No symptoms or risk factors identified. Fall Risk None identified. Assessment: 16:00 General: Appears distressed, uncomfortable, Behavior is calm, cooperative, appropriate oh for age, Reports decrease in vision x 2 days, hx of CVA. Pain: Denies pain. Neuro: Pupils are non-reactive, gazing toward the left. Cardiovascular: No deficits noted. Respiratory: No deficits noted. GI: No deficits noted. : No deficits noted. EENT: Eyes decrease vision to left eye, minimal vision to right. On lalita chart can view line 1 and 2, line 3 appears as a line to pt. 17:13 Derm: No deficits noted. Musculoskeletal: No deficits noted. oh Vital Signs: 15:27 BP 112 / 82; Pulse 94; Resp 18 S; Temp 98.0(TE); Pulse Ox 100% on R/A; Weight 86.18 kg aa5 (R); Height 6 ft. 0 in. (182.88 cm) (R); 16:00 BP 120 / 71; Pulse 94; Resp 20; Pulse Ox 98% ; oh 18:12 Pulse 81; Resp 17; Pulse Ox 100% ; oh 15:27 Body Mass Index 25.77 (86.18 kg, 182.88 cm) aa5 [place] Score: 16:00 Eye Response: spontaneous(4). Verbal Response: oriented(5). Motor Response: obeys oh commands(6). Total: 15. ED Course: 15:21 Patient arrived in ED. am2 15:21 Mauro Herrera MD is Private Physician. am2 15:27 Arm band placed on Patient placed in an exam room, on a stretcher. aa5 15:35 Triage completed. aa5 15:39 Baldo Astudillo MD is Attending Physician. kdr 15:53 Lashon Gomez, TIFFANIE is Primary Nurse. tr6 16:00 Inserted saline lock: 18 gauge in left antecubital area, using aseptic technique. Blood oh collected. 16:37 CT Head Brain wo Cont In Process Unspecified. EDMS 17:13 initiated a transfer with Radha from the [facility] [place]/. eb 17:18 Radha from the [facility] [place] called to decline the patient in transfer due eb to being at capacity. 17:19 Flavia Yang, RN is Primary Nurse. bp 17:19 initiated a transfer with Kelly Garcia Rn from the [facility]. eb 17:20 Patient has correct armband on for positive identification. Fall risk band placed. oh Placed in gown. Bed in low position. Call light in reach. Side rails up X2. 17:20 No provider procedures requiring assistance completed. oh 17:36 connected the neuro store protection specialist for [facility] with Dr. Astudillo for patient eb transfer consultation. 17:45 administrative approval given by Kelly Garcia Rn/ patient has been accepted to [facility] Neuro IMU Stroke Floor/ report to be called to [phone]/ Dr. Sang Mercer has accepted the patient in transfer/. 17:49 CT Head Angio In Process Unspecified. EDMS 18:10 Patient transferred, IV remains in place. oh Administered Medications: 16:21 Drug: Ativan (LORazepam) 1 mg Route: PO; oh 17:58 Drug: Aspirin 325 mg Route: PO; oh 17:58 Drug: PlaVIX (clopidogrel) 75 mg Route: PO; oh Outcome: 18:07 Transferred by ground EMS to [facility], Note: Report given to TIFFANIE Oates oh 18:07 Condition: stable 18:07 Instructed on the need for transfer, Demonstrated understanding of instructions, follow-up care. 18:08 ER care complete, transfer ordered by MD. kdr 20:17 Patient left the ED. kc4 Signatures: Dispatcher [employer] EDMS Baldo Astudillo MD MD kdr Alena Parada, RN RN aa5 Lydia Smith am2 Tone Denis, RN RN Elisabeth Jonas Tiffany, RN RN tr6 Nelly Diamond kc4 Flavia Yang, TIFFANIE RN oh Corrections: (The following items were deleted from the chart) 17:54 17:19 initiated a transfer with the [facility] [place]. eb eb 18:11 18:07 Transferred by ground EMS to [facility], oh oh
--- NOTE | 2021-07-10 18:09 | EDPHYS ---
Physician Documentation [facility] Name: Jordan Flaherty Age: 56 yrs Sex: Male : 1965 Arrival Date: 07/10/2021 Time: 15:21 Bed 15 Private MD: Mauro Herrera T ED Physician Baldo Astudillo HPI: 07/10 15:52 This 56 yrs old Male presents to ER via Wheelchair with complaints of Loss Of kdr Vision, Vision Problem. 15:52 Patient states that about 2 days ago patient began to lose vision in his left eye. kdr Currently the patient is only able to see shadows and light in the left eye. This afternoon about noon, the patient began to lose vision in his right eye. Currently in his lateral visual field he has no vision and in the medial visual field he has basic shapes recognition but otherwise is not able to discern with any clarity. Severity of symptoms: At their worst the symptoms were incapacitating in the emergency department the symptoms are unchanged. The patient has not experienced similar symptoms in the past. The patient has not recently seen a physician. Patient had a prior stroke but did not have any significant residual and no visual deficits. Historical: - Allergies: 15:35 No Known Allergies; aa5 - PMHx: 15:35 Diabetes - IDDM; Gastroparesis; Hyperlipidemia; Hypertension; TIA; aa5 - Immunization history:: Client reports receiving the 2nd dose of the Covid vaccine. - Social history:: Smoking status: Patient denies any tobacco usage or history of. ROS: 15:52 Constitutional: Negative for fever, chills, and weight loss, ENT: Negative for injury, kdr pain, and discharge, Neck: Negative for injury, pain, and swelling, Cardiovascular: Negative for chest pain, palpitations, and edema, Respiratory: Negative for shortness of breath, cough, wheezing, and pleuritic chest pain, Back: Negative for injury and pain, : Negative for injury, bleeding, discharge, and swelling, MS/Extremity: Negative for injury and deformity, Skin: Negative for injury, rash, and discoloration, Neuro: Negative for headache, weakness, numbness, tingling, and seizure activity. Psych: Negative for depression, anxiety, suicide ideation, homicidal ideation, and hallucinations, Allergy/Immunology: Negative for hives, rash, and allergies, Endocrine: Negative for neck swelling, polydipsia, polyuria, polyphagia, and marked weight changes, Hematologic/Lymphatic: Negative for swollen nodes, abnormal bleeding, and unusual bruising. 15:52 Abdomen/GI: Positive for vomiting, Negative for diarrhea, constipation, abdominal cramps, abdominal distension, black/tarry stool, rectal pain, rectal bleeding. Exam: 18:08 Visual Acuity: I have reviewed the nursing documentation. kdr 18:08 Constitutional: This is a well developed, well nourished patient who is awake, alert, and in no acute distress. Head/Face: Normocephalic, atraumatic. Neck: Trachea midline, no thyromegaly or masses palpated, and no cervical lymphadenopathy. Supple, full range of motion without nuchal rigidity, or vertebral point tenderness. No Meningismus. Chest/axilla: Normal chest wall appearance and motion. Nontender with no deformity. No lesions are appreciated. Cardiovascular: Regular rate and rhythm with a normal S1 and S2. No gallops, murmurs, or rubs. Normal PMI, no JVD. No pulse deficits. Respiratory: Lungs have equal breath sounds bilaterally, clear to auscultation and percussion. No rales, rhonchi or wheezes noted. No increased work of breathing, no retractions or nasal flaring. Abdomen/GI: Soft, non-tender, with normal bowel sounds. No distension or tympany. No guarding or rebound. No evidence of tenderness throughout. Back: No spinal tenderness. No costovertebral tenderness. Full range of motion. Skin: Warm, dry with normal turgor. Normal color with no rashes, no lesions, and no evidence of cellulitis. MS/ Extremity: Pulses equal, no cyanosis. Neurovascular intact. Full, normal range of motion. Psych: Awake, alert, with orientation to person, place and time. Behavior, mood, and affect are within normal limits. 18:08 Eyes: Pupils: equal, round, and reactive to light and accomodation, Both pupils are about 2 to 3 mm and sluggish but reactive. Vital Signs: 15:27 BP 112 / 82; Pulse 94; Resp 18 S; Temp 98.0(TE); Pulse Ox 100% on R/A; Weight 86.18 kg aa5 (R); Height 6 ft. 0 in. (182.88 cm) (R); 16:00 BP 120 / 71; Pulse 94; Resp 20; Pulse Ox 98% ; oh 18:12 Pulse 81; Resp 17; Pulse Ox 100% ; oh 15:27 Body Mass Index 25.77 (86.18 kg, 182.88 cm) aa5 Franca Coma Score: 16:00 Eye Response: spontaneous(4). Verbal Response: oriented(5). Motor Response: obeys oh commands(6). Total: 15. MDM: 18:08 Patient medically screened. kdr 18:23 Data reviewed: vital signs, nurses notes, lab test result(s), radiologic studies. kdr Counseling: I had a detailed discussion with the patient and/or guardian regarding: the historical points, exam findings, and any diagnostic results supporting the discharge/admit diagnosis, lab results, radiology results. 07/10 15:52 Order name: CBC with Diff; Complete Time: 17:03 kdr 07/10 15:52 Order name: Chem 7; Complete Time: 17:03 kdr 07/10 15:52 Order name: CT Head Brain wo Cont; Complete Time: 17:09 kdr 07/10 15:52 Order name: PT-INR; Complete Time: 17:03 kdr 07/10 18:45 Order name: SARS-COV-2 RT PCR EDRI 07/10 17:26 Order name: CT Head Angio kdr Administered Medications: 16:21 Drug: Ativan (LORazepam) 1 mg Route: PO; oh 17:58 Drug: Aspirin 325 mg Route: PO; oh 17:58 Drug: PlaVIX (clopidogrel) 75 mg Route: PO; oh Disposition Summary: 07/10/21 18:08 Transfer Ordered Transfer Location: [facility] kdr Reason: Higher level of care kdr Condition: Serious kdr Problem: new kdr Symptoms: are unchanged kdr Accepting Physician: Ruslan(07/10/21 20:17) kc4 Diagnosis - Acute/subacute nonhemorrhagic occipital stroke with visual deficits involving the kdr entire OS visual field and the lateral aspect of the OD right visual field Forms: - Medication Reconciliation Form kdr - SBAR form kdr Signatures: Dispatcher [employer] EDMS Baldo Astudillo MD MD kdr Alena Parada RN RN aa5 Nelly Diamond kc4 Flavia Yang RN RN oh Corrections: (The following items were deleted from the chart) 17:48 17:12 CORONAVIRUS+.BRZ ordered. EDMS EDMS 20:17 18:08 Ruslan womack kc4
--- NOTE | 2021-07-10 18:10 | RAD REPORT ---
EXAM DESCRIPTION: CT - Head angio - 07/10/2021 5:49 pm CLINICAL HISTORY: VISUAL DISTURBANCES TECHNIQUE: During dynamic enhancement using nonionic IV contrast, axial 1 millimeter thick images of the head were obtained. Sagittal and axial reconstruction images were generated using MIP technique and reviewed. All CT scans are performed using dose optimization technique as appropriate and may include automated exposure control or mA/KV adjustment according to patient size. COMPARISON: CT head same date FINDINGS: No aneurysm or vascular malformation identified. Major venous sinuses are patent. The very far peripheral branches of the left posterior cerebral artery at the area of infarction are not identifiable. Elsewhere no named branch occlusion, stenosis or vasculitis identifiable. IMPRESSION: Truncated or absent far peripheral left [employer] branches at the area of infarction. Elsewhere no named branch occlusion, stenosis, vasculitis or significant abnormality.
[2021-07-10] MEDS ORDERED: CLOPIDOGREL 75 MG TABLET ONE (18:12)
[2021-07-10] MEDS ORDERED: ASPIRIN 325 MG TAB ONE (18:12)
[2021-07-10 21:34] VITALS: TEMP 98
[2021-07-10 21:35] VITALS: BP 120/71
[2021-07-10 21:36] VITALS: O2SAT 100
== END 2021-07-10 20:17 | disposition short-term general hospital (02) ==
LOC: ER 15:20
DX: I63.532 Cerebral infarction due to unspecified occlusion or stenosis of left posterior cerebral artery (principal); I69.398 Other sequelae of cerebral infarction; H53.47 Heteronymous bilateral field defects; I10 Essential (primary) hypertension; Z20.822 Contact with and (suspected) exposure to COVID-19
CPT/HCPCS: 85025; 80048; 36415; 85610; 70450; 70496; 99285; U0003; Q9967